=== PATIENT | female | born 1990 | race Hispanic/Latino ===

== ENCOUNTER 2018-05-15 18:14 | Emergency (ER) | payer OTHER, SELFPAY ==
[2018-05-15 22:06] LABS: Absolute Lymphocytes (CBC) 2.4 K/uL (0.7-4.9); Absolute Monocytes 0.6 K/uL (0.1-1.3); Absolute Neutrophil 3.9 K/uL (1.8-8.0); Basophils % 0.9 % (0-1.3); Eosinophils % 2.5 % (0-4.4); Hematocrit 41.9 % (36.0-45.0); Lymphocytes % 33.3 % (15.3-44.8); MPV 10.3 fL (7.6-11.3); Monocytes % 8.2 % (3.3-12.3); RBC Red Blood Cell Count 4.53 M/uL (3.86-4.86)
[2018-05-15 22:21] LABS: BUN Blood Urea Nitrogen 13 mg/dL (7-18); Bicarbonate 26 mmol/L (21-32); Glucose Level 102 mg/dL (74-106); Potassium 3.5 mmol/L (3.5-5.1); Sodium Level 142 mmol/L (136-145); Troponin (Emerg Dept Use Only) < 0.02 ng/mL (0.0-0.045)
[2018-05-15] MEDS ORDERED: ACETAMINOPHEN 500 MG TAB ONE (22:40)
--- NOTE | 2018-05-15 23:28 | EDPHYS ---
Physician Documentation [facility] Name: Marilyn Valenzuela Age: 28 yrs Sex: Female : 1990 Arrival Date: 05/15/2018 Time: 18:18 Bed 18 Private MD: ED Physician Marky Silva HPI: 05/15 22:13 This 28 yrs old Female presents to ER via Ambulatory with complaints of kb Shortness Of Breath. 22:13 The patient has shortness of breath at rest. Onset: The symptoms/episode began/occurred kb just prior to arrival. Duration: The symptoms are continuous. The patient's shortness of breath has no apparent modifying factors. Associated signs and symptoms: Pertinent positives: chest pain, Pertinent negatives: non-productive cough, productive cough, diaphoresis, dizziness, fever, hemoptysis, loss of consciousness, nausea, numbness in extremities, visual changes, vomiting. Severity of symptoms: At their worst the symptoms were moderate in the emergency department the symptoms have resolved. The patient has not experienced similar symptoms in the past. The patient has not recently seen a physician. Pt reports she was driving home from [place] and started having shortness of breath. Reports it felt like she was going to pass out. States she pulled over and "calmed down," then was able to drive again. Reports her chest felt tight . 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 - Social history:: Smoking status: Patient/guardian denies using tobacco. - Ebola Screening: : No symptoms or risks identified at this time. ROS: 22:13 Constitutional: Negative for fever, chills, and weight loss, Neck: Negative for injury, kb pain, and swelling, Abdomen/GI: Negative for abdominal pain, nausea, vomiting, diarrhea, and constipation, Back: Negative for injury and pain, : Negative for injury, bleeding, discharge, and swelling, MS/Extremity: Negative for injury and deformity, Skin: Negative for injury, rash, and discoloration, Neuro: Negative for headache, weakness, numbness, tingling, and seizure. 22:13 Cardiovascular: Positive for chest pain, Negative for edema, orthopnea, palpitations, paroxysmal nocturnal dyspnea. 22:13 Respiratory: Positive for shortness of breath, Negative for cough, dyspnea on exertion, hemoptysis, orthopnea, pleurisy, sputum production, wheezing. Exam: 22:13 Constitutional: This is a well developed, well nourished patient who is awake, alert, kb and in no acute distress. Head/Face: Normocephalic, atraumatic. ENT: Nares patent. No nasal discharge, no septal abnormalities noted. Tympanic membranes are normal and external auditory canals are clear. Oropharynx with no redness, swelling, or masses, exudates, or evidence of obstruction, uvula midline. Mucous membranes moist. Neck: Trachea midline, no thyromegaly or masses palpated, and no cervical lymphadenopathy. Supple, full range of motion without nuchal rigidity, or vertebral point tenderness. No Meningismus. Chest/axilla: Normal chest wall appearance and motion. Nontender with no deformity. No lesions are appreciated. Cardiovascular: Regular rate and rhythm with a normal S1 and S2. No gallops, murmurs, or rubs. Normal PMI, no JVD. No pulse deficits. Respiratory: Lungs have equal breath sounds bilaterally, clear to auscultation and percussion. No rales, rhonchi or wheezes noted. No increased work of breathing, no retractions or nasal flaring. Abdomen/GI: Soft, non-tender, with normal bowel sounds. No distension or tympany. No guarding or rebound. No evidence of tenderness throughout. Skin: Warm, dry with normal turgor. Normal color with no rashes, no lesions, and no evidence of cellulitis. MS/ Extremity: Pulses equal, no cyanosis. Neurovascular intact. Full, normal range of motion. Neuro: Awake and alert, GCS 15, oriented to person, place, time, and situation. Cranial nerves II-XII grossly intact. Motor strength 5/5 in all extremities. Sensory grossly intact. Cerebellar exam normal. Normal gait. Vital Signs: 18:46 BP 129 / 80; Pulse 75; Resp 18; Temp 97.9; Pulse Ox 100% on R/A; Weight 79.38 kg; ph Height 5 ft. 3 in. (160.02 cm); Pain 5/10; 21:15 BP 118 / 84; Pulse 78; Resp 16; Pulse Ox 99% on R/A; jb4 22:30 BP 123 / 68; Pulse 74; Resp 18; Pulse Ox 100% on R/A; jb4 23:15 BP 119 / 72; Pulse 69; Resp 18; Pulse Ox 100% on R/A; jb4 18:46 Body Mass Index 31.00 (79.38 kg, 160.02 cm) ph MDM: 21:16 Patient medically screened. kb 22:13 Data reviewed: vital signs, nurses notes. Data interpreted: Pulse oximetry: on room air kb is 100 %. Interpretation: normal. 23:26 Counseling: I had a detailed discussion with the patient and/or guardian regarding: the kb historical points, exam findings, and any diagnostic results supporting the discharge/admit diagnosis, lab results, radiology results, the need for outpatient follow up, a family practitioner, to return to the emergency department if symptoms worsen or persist or if there are any questions or concerns that arise at home. ED course: Pt reports she has had anxiety in the past and thinks that is what caused her symptoms. Reports increased stress lately and hasn't been able to sleep well for the past few nights. Was on anxiety medication in the past, but hasn't been on it for a few years. 05/15 21:19 Order name: CBC with Diff; Complete Time: 22:10 kb 05/15 21:19 Order name: D-Dimer; Complete Time: 22:10 kb 05/15 21:19 Order name: Basic Metabolic Panel; Complete Time: 22:28 kb 05/15 21:19 Order name: Chest Single View XRAY kb 05/15 21:19 Order name: Troponin (emerg Dept Use Only); Complete Time: 22:28 kb 05/15 21:19 Order name: IV Start; Complete Time: 21:43 kb 05/15 21:19 Order name: EKG; Complete Time: 21:19 kb 05/15 21:19 Order name: EKG - Nurse/Tech; Complete Time: 21:29 kb Administered Medications: 22:10 Drug: Tylenol 1000 mg Route: PO; jb4 23:38 Follow up: Response: No adverse reaction; Pain is decreased jb4 Disposition: 05/15/18 23:27 Discharged to Home. Impression: Dyspnea - resolved. - Condition is Stable. - Discharge Instructions: Shortness of Breath, [id number], Panic Attacks, [id number]. - Prescriptions for Hydroxyzine HCl 25 mg Oral Tablet - take 1 tablet by ORAL route At bedtime As needed; 12 tablet. - Medication Reconciliation Form, Thank You Letter, Antibiotic Education, Prescription Opioid Use form. - Follow up: Emergency Department; When: As needed; Reason: Worsening of condition. Follow up: Private Physician; When: 2 - 3 days; Reason: Recheck today's complaints, Continuance of care, Re-evaluation by your physician. Addendum: 05/18/2018 19:35 Co-signature as Attending Physician, Marky Silva MD. g s Signatures: Dispatcher [employer] EDMS Lesley Gallegos, KEY-C CARRIER WASHER-Elissa Hodge, RN RN Marlo Wyamn RN RN jb4 Marky Silva MD MD Corrections: (The following items were deleted from the chart) 05/15 23:40 23:27 05/15/2018 23:27 Discharged to Home. Impression: Dyspnea - resolved. Condition is jb4 Stable. Forms are Medication Reconciliation Form, Thank You Letter, Antibiotic Education, Prescription Opioid Use. Follow up: Emergency Department; When: As needed; Reason: Worsening of condition. Follow up: Private Physician; When: 2 - 3 days; Reason: Recheck today's complaints, Continuance of care, Re-evaluation by your physician. kb
--- NOTE | 2018-05-15 23:28 | ER ---
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 18:48 Transition of care: patient was not received from another setting of care. Onset of ph symptoms was May 15, 2018. Risk Assessment: Do you want to hurt yourself or someone else? Patient reports no desire to harm self or others. Initial Sepsis Screen: Does the patient meet any 2 criteria? No. Patient's initial sepsis screen is negative. Does the patient have a suspected source of infection? No. Patient's initial sepsis screen is negative. 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 - Social history:: Smoking status: Patient/guardian denies using tobacco. - Ebola Screening: : No symptoms or risks identified at this time. Screenin:49 Abuse screen: Denies threats or abuse. Denies injuries from another. Nutritional ph screening: No deficits noted. Tuberculosis screening: No symptoms or risk factors identified. Fall Risk None identified. Assessment: 21:00 General: Appears in no apparent distress. comfortable, Behavior is calm, cooperative, jb4 appropriate for age. Pain: Complains of pain in chest Pain does not radiate. Pain currently is 2 out of 10 on a pain scale. Quality of pain is described as pressure. Neuro: Level of Consciousness is awake, alert, obeys commands, Oriented to person, place, time, situation. Cardiovascular: Heart tones S1 S2 present Patient's skin is warm and dry. Rhythm is sinus rhythm. Respiratory: Airway is patent Respiratory effort is even, unlabored, Breath sounds are clear bilaterally. GI: No signs and/or symptoms were reported involving the gastrointestinal system. : No signs and/or symptoms were reported regarding the genitourinary system. EENT: No signs and/or symptoms were reported regarding the EENT system. Derm: Skin is intact, Skin is pink, warm \\T\\ dry. Musculoskeletal: Circulation, motion, and sensation intact. 22:00 Reassessment: Patient appears in no apparent distress at this time. Patient and/or jb4 family updated on plan of care and expected duration. Pain level reassessed. Patient is alert, oriented x 3, equal unlabored respirations, skin warm/dry/pink. 23:36 Reassessment: Patient appears in no apparent distress at this time. Patient and/or jb4 family updated on plan of care and expected duration. Pain level reassessed. Patient is alert, oriented x 3, equal unlabored respirations, skin warm/dry/pink. Vital Signs: 18:46 BP 129 / 80; Pulse 75; Resp 18; Temp 97.9; Pulse Ox 100% on R/A; Weight 79.38 kg; ph Height 5 ft. 3 in. (160.02 cm); Pain 5/10; 21:15 BP 118 / 84; Pulse 78; Resp 16; Pulse Ox 99% on R/A; jb4 22:30 BP 123 / 68; Pulse 74; Resp 18; Pulse Ox 100% on R/A; jb4 23:15 BP 119 / 72; Pulse 69; Resp 18; Pulse Ox 100% on R/A; jb4 18:46 Body Mass Index 31.00 (79.38 kg, 160.02 cm) ph ED Course: 18:18 Patient arrived in ED. tw3 18:47 Arm band placed on. ph 18:48 Triage completed. ph 18:54 EKG completed in triage. Results shown to . ph 20:50 Marlo Wyamn, RN is Primary Nurse. jb4 21:00 Patient has correct armband on for positive identification. Placed in gown. Bed in low jb4 position. Call light in reach. Side rails up X 1. Pulse ox on. NIBP on. 21:05 Initial lab(s) drawn, by me, sent to lab. Inserted saline lock: 20 gauge in left jb4 antecubital area, using aseptic technique. Blood collected. 21:07 Lesley Gallegos [facility]C [facility] kb 21:07 Marky Silva MD is Attending Physician. kb 22:10 X-ray completed. Portable x-ray completed in exam room. Patient tolerated procedure ml well. 22:11 Chest Single View XRAY In Process Unspecified. EDMS 23:37 No provider procedures requiring assistance completed. IV discontinued, intact, jb4 bleeding controlled, No redness/swelling at site. Administered Medications: 22:10 Drug: Tylenol 1000 mg Route: PO; jb4 23:38 Follow up: Response: No adverse reaction; Pain is decreased jb4 Outcome: 23:27 Discharge ordered by . kb 23:37 Discharged to home ambulatory. jb4 23:37 Condition: stable 23:37 Discharge instructions given to patient, Instructed on discharge instructions, follow up and referral plans. medication usage, Demonstrated understanding of instructions, follow-up care, medications, Prescriptions given X 1. 23:40 Patient left the ED. jb4 Signatures: Dispatcher [employer] EDNH Lesley Gallegos FNP-C FNP-Zhane Snyder Patricia, RN RN Marlo Mota, RN RN jb4 Susi Srinivasan tw3 Corrections: (The following items were deleted from the chart) 23:36 21:00 Cardiovascular: Heart tones S1 S2 present Patient's skin is warm and dry. jb4 jb4 23:37 23:15 No provider procedures requiring assistance completed. jb4 jb4 23:37 23:15 Patient did not have IV access during this emergency room visit. jb4 jb4
--- NOTE | 2018-05-16 05:30 | EKG ---
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
--- NOTE | 2018-05-16 07:20 | RAD REPORT ---
EXAM DESCRIPTION: RAD - Chest Single View - 05/15/2018 10:10 pm CLINICAL HISTORY: Chest pain, dyspnea COMPARISON: None. TECHNIQUE: AP portable chest image was obtained 2150 hours . FINDINGS: Lungs are clear. Heart and vasculature are normal. No measurable pleural effusion and no p neumothorax. No acute bony abnormality seen. No acute aortic findings suspected. IMPRESSION: No acute cardiopulmonary process.
== END 2018-05-15 23:40 | disposition home or self-care (01) ==
LOC: ER 18:14
DX: R06.02 Shortness of breath (principal)
CPT/HCPCS: 36415; 71045; 80048; 84484; 85025; 85379; 93005; 99284

== ENCOUNTER 2021-12-19 17:41 | Emergency (ER) | payer BC ==
--- OUTSIDE RECORDS SUMMARY | 2021-12-19 17:46 | XMS REPORT | Continuity of Care Document ---
:1990 Author Organization [facility] t Address [address] [place] [address] Care Team Providers Name Role Phone Ailin Ramirez Primary Care Physician [phone] Quinn Quintero Attending Clinician Unavailable MIKE BLOCK Attending Clinician Unavailable MIKE BLOCK Attending Clinician Unavailable ANNA CALZADA Attending Clinician Unavailable YVONNE Attending Clinician Unavailable Anna Calzada MD Attending Clinician Doctor Unassigned, [place] Attending Clinician Unavailable Lab, Ang - Db Attending Clinician Unavailable LUCIA DO Attending Clinician Unavailable SCHAUBROECK_L Attending Clinician Unavailable Colten Escobar DO Attending Clinician Kimber Powell Attending Clinician [phone] Lab, Adc Fam Pob I Attending Clinician Unavailable Jannet Brownlee Attending Clinician JANNET LANDRUM Attending Clinician Unavailable Aria Nava Attending Clinician ARIA FLETCHER Attending Clinician Unavailable AILIN THURSTON Attending Clinician Unavailable Ailin Ramirez Attending Clinician [phone] YVONNE Admitting Clinician Unavailable CAROLINE Admitting Clinician Unavailable Payers Payer Name Policy Type Policy Number Effective Date Expiration Date S jo ann [employer] [place] [id number] 2020 00:00:00 [facility] [id number] 2018 HEALTHCARE (PPO) 00:00:00 [employer] Blue 6 [id number] 2020 Common [facility] [place] 00:00:00 [facility] Problems Condition Condition Condition Status Onset Resolution Last Treating Co mments Source Name Details Category Date Date Treatment Clinician Date Chronic Chronic Disease Active 2021-03 Univers fatigue fatigue 0-14 ity of 00:00: [place] [facility] Myalgia, Myalgia, Disease Active 2021-03 Unive rs multiple multiple 0-14 ity of sites sites 00:00: [place] [facility] Hearing Hearing Disease Active Univers loss loss 4-18 ity of 00:00: [place] [facility] Anxiety Anxiety Problem Active [facility] 2-22 Communi 00:00: [place] 00 [facility] IUD IUD Disease Active 2016-03 Univers strings strings 0-20 ity of lost lost 00:00: [place] 00 [facility] Presence Presence Disease Active 2015-03 Unive rs of of 2-16 [place]y of intra[place] 00 Medical contracept contracept Br anch bboy device boby device Dysmenorrh Dysmenorrh Disease Active U nivers ea ea 5-11 ity of 00:00: [place] 00 [facility] BV BV Disease Active Univers (bacterial (bacterial 5-11 it y of vaginosis) vaginosis[place] [facility] Vaginal Vaginal Disease Active Univers yeast yeast 5-11 ity of infection [place] [facility] Oral Oral Disease Active Univers contracept contracept 5-11 it y of ion ion 00:00: [place] initiation initiation 00 Vt dical Branch [id number] Anxiety Problem Active [facility] [id number] Tinnitus, Problem Active Co mmon 106 left ear [facility] [id number] Chronic Problem Active [facility] Idiopathic [facility] Constipati - [facility] on [facility] Adult Adult Problem Active Common attention attention 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 [facility] Insomnia Insomnia Problem Active Commo n [facility] [id number] Adult BMI Problem Active Com mon 30.0-30.9 Spirit kg/sq [facility] [id number] Decreased Problem Active Com mon hearing of Spirit left ear [facility] [id number] FRANK Problem Active Common (generaliz Spirit ed anxiety - [facility] disorder) [facility] Allergies, Adverse Reactions, Alerts Allergy Allergy Status Severity Reaction(s) Onset Inactive Treating Comm ents Source Name Type Date Date Clinician NO KNOWN Drug Active Univers ALLERGIE Class ity of S [facility] [place] Social History Social Habit Start Date Stop Date Quantity Comments Source History SDOH University o f Alcohol Frequency [place] [facility] History SDOH University o f Alcohol Std [place] [facility] History SDAK University o f Alcohol Binge [place] [facility] [place] History of [facility] - [facility] Use [facility] Sex Assigned At [facility] Alcohol intake 2021-12-15 2021-12-15 0 /d University of 00:00:00 00:00:00 [facility] [place] Exposure to 2021-12-04 2021-12-14 Not sure [facility] SARS-CoV-2 00:00:00 16:19:00 [facility] (event) [place] Tobacco use and 2021-12-14 2021-12-14 Smokeless tobacco Un iversity of exposure 00:00:00 00:00:00 non-user [facility] [place] Alcohol Comment 2012-06-27 2012-06-27 socially Universit y of 00:00:00 00:00:00 [facility] [place] Smoking Status Start Date Stop Date Source Never Smoker [facility] Medications Ordered Filled Start Stop Current Ordering Indication Dosage Frequency Signature Comments Components Source Medication Medication Date Date Medication? Clinician (SIG) Name Name TRAZODONE 2021-03 Yes Take by Unive rs HCL 0-13 mouth. ity of (TRAZODONE 16:38: [place] ORAL) [address] [place] [address] TRAZODONE 2021-03 Yes Take by Unive rs HCL 0-13 mouth. ity of (TRAZODONE 16:38: [place] ORAL) [address] [place] [address] norgestimat 2021-03 Yes [id number] 1{tbl} Take 1 Univers e-ethinyl 0-13 tablet by ity o f estradioL [place] 00 the Medical 0.25 mg-25 morning. Branc h mcg tablet norgestimat 2021-03 Yes [id number] 1{tbl} Take 1 Univers e-ethinyl 0-13 tablet by ity o f estradioL [place] 00 the Medical 0.25 mg-25 morning. Branc h mcg tablet Amphetamine Amphetamine No 1{table BID Amphetamin -Dextroamph -Dextroamph 8-06 t} e-Dextroam etamine 30 etamine 30 00:00: phetamine MG MG 00 30 MG Sertraline Sertraline 0 No 1{table QD Sertraline HCl 100 MG HCl 100 MG 7-07 t} HCl 100 MG 00:00: 00 Amphetamine Amphetamine No 1{table BID Amphetamin -Dextroamph -Dextroamph 7-07 t} e-Dextroam etamine 30 etamine 30 00:00: phetamine MG MG 00 30 MG dextroamphe 2021- No 1 tablet U nivers tamine-amph 7-07 10-13 ity of etamine 30 00:00: 00:00 [place] mg tablet 00 :00 Medical Branch dextroamphe 2021-0 2021- No 1 tablet U nivers tamine-amph 7-07 10-13 ity of etamine 30 00:00: 00:00 [place] mg tablet 00 :00 Medical Branch Amphetamine Amphetamine 0 No 1{table BID Amphetamin -Dextroamph -Dextroamph 6-11 t} e-Dextroam etamine 30 etamine 30 00:00: phetamine MG MG 00 30 MG levonorgest 2021- No [id number] 1{devic Univers reL 07-25- e} ity of (KYLEENA) 20:45: 19:44 [place] IUD 1 00 :00 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 Branch levonorgest 2021- No [id number] 1{devic 1 Device, Univers reL 07-25-24 e} Intrauteri ity of (KYLEENA) 20:45: 19:44 [place] I[place] 1 00 :00 1 dose, On 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 Manager Tue Branch 07/25/21 at 1545, Routine levonorgest 2021- No [id number] 1{devi Univers reL 07-25 05 e} ity of (RUBENS) 20:45: 19:44 [place] IUD 1 00 :00 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 Manager Branch levonorgest 2021- No [id number] 1{devi 1 Device, Univers reL 07-25 e} Intrauteri ity of (MIGUELITOLEENA) 20:45: 19:44 [place] I[place] 1 00 :00 1 dose, On 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 Manager e Branch 07/25/21 at 1545, Routine TRINTELLIX Yes Univers 10 mg Tab 5-12 ity of 00:00: 00 Medical Branch TRINTELLIX 0 Yes Univers 10 mg Tab 5-12 ity of 00:00: Medical Branch TRINTELLIX Yes Univers 10 mg Tab 5-12 ity of 00:00: Medical Branch TRINTELLIX 0 Yes Univers 10 mg Tab 5-12 ity of 00:00: Medical Branch TRINTELLIX 0 Yes Univers 10 mg Tab 5-12 ity of 00:00: Medical Branch Trintellix Trintellix 0 No 1{table QD Trintellix 10 MG 10 MG 5-12 t} 10 MG 00:00: 00 Amphetamine Amphetamine No 1{table BID Amphetamin -Dextroamph -Dextroamph 5-12 t} e-Dextroam etamine 30 etamine 30 00:00: phetamine MG MG 00 30 MG TRAZODONE Yes Take by Unive rs HCL 4-22 mouth. ity of (TRAZODONE 13:18: [place] ORAL) Medical Branch TRAZODONE Yes Take by Unive rs HCL 4-22 mouth. ity of (TRAZODONE 13:18: [place] ORAL) Medical Branch TRAZODONE Yes Take by Unive rs HCL 4-22 mouth. ity of (TRAZODONE 13:18: [place] ORAL) 26 Medical Branch Amphetamine Amphetamine 2021-0 No 1{table BID Amphetamin -Dextroamph -Dextroamph 4-22 t} e-Dextroam etamine 30 etamine 30 00:00: phetamine MG MG 00 30 MG Adderall 30 Adderall 30 2021-0 No 1{table BID Adderall MG MG 4-22 t} 30 MG 00:00: 00 Adderall 30 Adderall 30 2021-0 No 1{table BID Adderall MG MG 4-22 t} 30 MG 00:00: 00 Adderall 30 Adderall 30 2021-0 No 1{table BID Adderall MG MG 4-22 t} 30 MG 00:00: 00 Adderall 30 Adderall 30 2021-0 No 1{table BID Adderall MG MG 4-22 t} 30 MG 00:00: 00 levonorgest 2021-0 2021- No [id number] 1{tbl} Take 1 Univers rel-ethinyl 4-22 05-24 tablet by it y of estradiol 00:00: 00:00 mouth [place] 0.1-20 00 :00 daily. Medical mg-mcg per Branch tablet levonorgest 0 2021- No [id number] 1{tbl} Take 1 Univers rel-ethinyl 4-22 05-24 tablet by it y of estradiol 00:00: 00:00 mouth [place] 0.1-20 00 :00 daily. Medical mg-mcg per Branch tablet Adderall 30 Adderall 30 2021-0 No 1{table BID Adderall MG MG 3-23 t} 30 MG 00:00: 00 Amphetamine Amphetamine 2021-0 No 1{table BID Amphetamin -Dextroamph -Dextroamph 3-23 t} e-Dextroam etamine 30 etamine 30 00:00: phetamine MG MG 00 30 MG Adderall 30 Adderall 30 2021-0 No 1{table BID Adderall MG MG 3-23 t} 30 MG 00:00: 00 Adderall 30 Adderall 30 2021-0 No 1{table BID Adderall MG MG 3-23 t} 30 MG 00:00: 00 Adderall 30 Adderall 30 2021-0 No 1{table BID Adderall MG MG 3-23 t} 30 MG 00:00: 00 MYDAYIS 25 2021- No 1{capsu Take 1 U nivers mg CT24 3- 05-24 le} capsule by ity o f 00:00: 00:00 mouth [place] 00 :00 every Medical morning. Branch MYDAYIS 25 2021- No 1{capsu Take 1 U nivers mg CT24 3-10 05-24 le} capsule by ity o f 00:00: 00:00 mouth [place] 00 :00 every Medical morning. Branch dextroamphe 2021-0 Yes 30mg Take 30 mg Univers tamine-amph 1-25 by mouth 2 it y of etamine 30 00:00: (two) [place] mg tablet 00 times Medical daily. Branch dextroamphe 2021-0 Yes 30mg Take 30 mg Univers tamine-amph 1-25 by mouth 2 it y of etamine 30 00:00: (two) [place] mg tablet 00 times Medical daily. Branch dextroamphe 2021-0 Yes 30mg Take 30 mg Univers tamine-amph 1-25 by mouth 2 it y of etamine 30 00:00: (two) [place] mg tablet 00 times Medical daily. Branch dextroamphe 2021-0 Yes 30mg Take 30 mg Univers tamine-amph 1-25 by mouth 2 it y of etamine 30 00:00: (two) [place] mg tablet 00 times Medical daily. Branch dextroamphe 2021-0 Yes 30mg Take 30 mg Univers tamine-amph 1-25 by mouth 2 it y of etamine 30 00:00: (two) [place] mg tablet 00 times Medical daily. Branch Amphetamine Amphetamine No 1{table BID -Dextroamph -Dextroamph 1-25 t} etamine 30 etamine 30 00:00: MG MG 00 Vyvanse 50 Vyvanse 50 2020-03 No 1{capsu QD Vyvanse 50 MG MG 1-02 le_in_t MG 00:00: he_morn 00 ing} Moxifloxaci Moxifloxaci 2020-03- No 1{drop_ TID Moxifloxac n HCl 0.5 % n HCl 0.5 % 0-18 10-25 into_af in HCl 0.5 00:00: 00:00 fected_ % 00 :00 eye} Moxifloxaci Moxifloxaci 2020-03 202- No 1{drop_ TID Moxifloxac n HCl 0.5 % n HCl 0.5 % 0-18 10-25 into_af in HCl 0.5 00:00: 00:00 fected_ % 00 :00 eye} Vyvanse 40 Vyvanse 40 2020-03 No 1{capsu QD Vyvanse 40 MG MG 0-04 le_in_t MG 00:00: he_morn 00 ing} Vyvanse 40 Vyvanse 40 2020-03 No 1{capsu QD Vyvanse 40 MG MG 0-04 le_in_t MG 00:00: he_morn 00 ing} Vyvanse 40 Vyvanse 40 2020-03 No 1{capsu QD Vyvanse 40 MG MG 0-04 le_in_t MG 00:00: he_morn 00 ing} Venlafaxine Venlafaxine 0 No 1{capsu QD Venlafaxin HCl ER 75 HCl ER 75 9-01 le_with e HCl ER MG MG 00:00: _food} 75 MG 00 Adderall 30 Adderall 30 2020-0 No 1{table BID Adderall MG MG 9-01 t} 30 MG 00:00: 00 Adderall 20 Adderall 20 2020-0 No 1{table BID Adderall MG MG 6-14 t} 20 MG 00:00: 00 Lactulose Lactulose 2020-0 No BID Lactulose 10 GM/15ML 10 GM/15ML 1-08 10 GM/15ML 00:00: 00 Lactulose Lactulose 2020-0 No BID Lactulose 10 GM/15ML 10 GM/15ML 1-08 10 GM/15ML 00:00: 00 Lactulose Lactulose 2020-0 No BID Lactulose 10 GM/15ML 10 GM/15ML 1-08 10 GM/15ML 00:00: 00 Lactulose Lactulose 2020-0 No BID Lactulose 10 GM/15ML 10 GM/15ML 1-08 10 GM/15ML 00:00: 00 Lactulose Lactulose 2020-0 No BID Lactulose 10 GM/15ML 10 GM/15ML 1-08 10 GM/15ML 00:00: 00 Lactulose Lactulose 2021-0 No BID 10 GM/15ML 10 GM/15ML 1-08 00:00: 00 Lactulose Lactulose 2021-0 No BID Lactulose 10 GM/15ML 10 GM/15ML 1-08 10 GM/15ML 00:00: 00 Lactulose Lactulose 2021-0 No BID Lactulose 10 GM/15ML 10 GM/15ML 1-08 10 GM/15ML 00:00: 00 Lactulose Lactulose 2021-0 No BID Lactulose 10 GM/15ML 10 GM/15ML 1-08 10 GM/15ML 00:00: 00 Lactulose Lactulose 2021-0 No BID Lactulose 10 GM/15ML 10 GM/15ML 1-08 10 GM/15ML 00:00: 00 Lactulose Lactulose 2021-0 No BID Lactulose 10 GM/15ML 10 GM/15ML 1-08 10 GM/15ML 00:00: 00 Lactulose Lactulose 2021-0 No BID Lactulose 10 GM/15ML 10 GM/15ML 1-08 10 GM/15ML 00:00: 00 Lactulose Lactulose 2021-0 No BID Lactulose 10 GM/15ML 10 GM/15ML 1-08 10 GM/15ML 00:00: 00 Adderall Adderall 2019-0 Yes Quinn 1 tablet Common 7-12 [facility] 00:00: - [facility] 00 [facility] Vitamin B12 Vitamin B12 2019-0 No 1000ug Common (Cyanocobal (Cyanocobal 7-12 S pirit hernandez) hernandez) 00:00: - [facility] 00 [facility] Vitamin B12 Vitamin B12 2019-0 No 1000ug Common (Cyanocobal (Cyanocobal 7-12 S pirit hernandez) hernandez) 00:00: - [facility] 00 [facility] Vitamin B12 Vitamin B12 2019-0 No 1000ug Common (Cyanocobal (Cyanocobal 7-12 S pirit hernandez) hernandez) 00:00: - [facility] 00 [facility] Vitamin B12 Vitamin B12 2019-0 No 1000ug Common (Cyanocobal (Cyanocobal 7-12 S pirit hernandez) hernandez) 00:00: - [facility] 00 [facility] Vitamin B12 Vitamin B12 2019-0 No 1000ug Common (Cyanocobal (Cyanocobal 7-12 S pirit hernandez) hernandez) 00:00: - [facility] 00 [facility] Zolpidem Zolpidem 2019-0 Yes Quinn 1 tablet Common Tartrate Tartrate 6-13 Quintero at bedtime Spirit 00:00: - [facility] 00 [facility] albuterol albuterol No 2puff(s Q5H albuterol [facility] sulfate HFA sulfate HFA ) sulfate Communi 90 90 HFA 90 ty mcg/actuati mcg/actuati mcg/actuat Hospita on aerosol on aerosol ion l inhaler inhaler aerosol Clinic s Inhale 2 Inhale 2 inhaler puffs every puffs every Inhale 2 4-6 hours 4-6 hours puffs by by every 4-6 inhalation inhalation hours by route as route as inhalation needed for needed for route as 30 days. 30 days. needed for 30 days. alprazolam alprazolam No alprazolam [facility] 1 mg tablet 1 mg tablet 1 mg C ommuni TAKE 1 TAKE 1 tablet ty TABLET BY TABLET BY TAKE 1 [facility] [place] MOUTH EVERY MOUTH EVERY TABLET BY l DAY. DAY. MOUTH Clinics EVERY DAY. etonogestre etonogestre No etonogestr [facility] l 0.12 l 0.12 el 0.12 Communi mg-ethinyl mg-ethinyl mg-ethinyl ty estradiol estradiol estradiol Hospita 0.015 mg/24 0.015 mg/24 0.015 l hr vaginal hr vaginal mg/24 hr Clinics ring INSERT ring INSERT vaginal 1 RING 1 RING ring VAGINALLY VAGINALLY INSERT 1 FOR 3 WEEKS FOR 3 WEEKS RING THEN REMOVE THEN REMOVE VAGINALLY FOR 1 WEEK FOR 1 WEEK FOR 3 WEEKS THEN REMOVE FOR 1 WEEK prednisone prednisone No 1dose prednisone [facility] 5 mg 5 mg pk(s) 5 mg Communi tablets in tablets in tablets in ty a dose pack a dose pack a dose Hospita Take 1 dose Take 1 dose pack Take l pk by oral pk by oral 1 dose pk Clinics route as route as by oral directed directed route as for 6 days. for 6 days. directed for 6 days. trazodone trazodone No trazodone [facility] 150 mg 150 mg 150 mg Communi tablet TAKE tablet TAKE tablet ty 1 TABLET BY 1 TABLET BY TAKE 1 Hospita MOUTH EVERY MOUTH EVERY TABLET BY l DAY AT DAY AT MOUTH Clinics BEDTIME BEDTIME EVERY DAY AT BEDTIME Zithromax Zithromax No Zithromax [facility] Z-Oj 250 Z-Oj 250 Z-Oj 250 Communi mg tablet mg tablet mg tablet ty TAKE 2 TAKE 2 TAKE 2 Hospita TABLETS TABLETS TABLETS l (500 MG) BY (500 MG) BY (500 MG) Clinics ORAL ROUTE ORAL ROUTE BY ORAL ONCE DAILY ONCE DAILY ROUTE ONCE FOR 1 DAY FOR 1 DAY DAILY FOR THEN 1 THEN 1 1 DAY THEN TABLET (250 TABLET (250 1 TABLET MG) BY ORAL MG) BY ORAL (250 MG) ROUTE ONCE ROUTE ONCE BY ORAL DAILY FOR 4 DAILY FOR 4 ROUTE ONCE DAYS DAYS DAILY FOR 4 DAYS traZODone traZODone No traZODone HCl 150 MG HCl 150 MG HCl 150 MG Xulane Xulane No Xulane 150-35 150-35 150-35 MCG/24HR MCG/24HR MCG/24HR Adderall 15 Adderall 15 No 1{table BID Adderall MG MG t} 15 MG Xulane Xulane No Xulane 150-35 150-35 150-35 MCG/24HR MCG/24HR MCG/24HR traZODone traZODone No 1{table QD traZODone HCl 150 MG HCl 150 MG t_at_be HCl 150 MG dtime} Adderall 15 Adderall 15 No 1{table BID Adderall MG MG t} 15 MG Venlafaxine Venlafaxine No 1{capsu QD Venlafaxin HCl ER 75 HCl ER 75 le_with e HCl ER MG MG _food} 75 MG traZODone traZODone No traZODone HCl 150 MG HCl 150 MG HCl 150 MG Venlafaxine Venlafaxine No 1{capsu QD Venlafaxin HCl ER 75 HCl ER 75 le_with e HCl ER MG MG _food} 75 MG Venlafaxine Venlafaxine No 1{capsu QD Venlafaxin HCl ER 75 HCl ER 75 le_with e HCl ER MG MG _food} 75 MG Xulane Xulane No Xulane 150-35 150-35 150-35 MCG/24HR MCG/24HR MCG/24HR Adderall 15 Adderall 15 No 1{table BID Adderall MG MG t} 15 MG traZODone traZODone No 1{table QD traZODone HCl 150 MG HCl 150 MG t_at_be HCl 150 MG dtime} Venlafaxine Venlafaxine No 1{capsu QD Venlafaxin HCl ER 75 HCl ER 75 le_with e HCl ER MG MG _food} 75 MG traZODone traZODone No traZODone HCl 150 MG HCl 150 MG HCl 150 MG Venlafaxine Venlafaxine No 1{capsu QD Venlafaxin HCl ER 75 HCl ER 75 le_with e HCl ER MG MG _food} 75 MG Xulane Xulane No Xulane 150-35 150-35 150-35 MCG/24HR MCG/24HR MCG/24HR Adderall 15 Adderall 15 No 1{table BID Adderall MG MG t} 15 MG traZODone traZODone No 1{table QD traZODone HCl 150 MG HCl 150 MG t_at_be HCl 150 MG dtime} Venlafaxine Venlafaxine No 1{capsu QD Venlafaxin HCl ER 75 HCl ER 75 le_with e HCl ER MG MG _food} 75 MG traZODone traZODone No traZODone HCl 150 MG HCl 150 MG HCl 150 MG Adderall 15 Adderall 15 No 1{table BID Adderall MG MG t} 15 MG Venlafaxine Venlafaxine No 1{capsu QD Venlafaxin HCl ER 75 HCl ER 75 le_with e HCl ER MG MG _food} 75 MG traZODone traZODone No 1{table QD traZODone HCl 150 MG HCl 150 MG t_at_be HCl 150 MG dtime} traZODone traZODone No traZODone HCl 150 MG HCl 150 MG HCl 150 MG Xulane Xulane No Xulane 150-35 150-35 150-35 MCG/24HR MCG/24HR MCG/24HR Venlafaxine Venlafaxine No 1{capsu QD Venlafaxin HCl ER 75 HCl ER 75 le_with e HCl ER MG MG _food} 75 MG traZODone traZODone No HCl 150 MG HCl 150 MG Venlafaxine Venlafaxine No 1{capsu QD HCl ER 75 HCl ER 75 le_with MG MG _food} Xulane Xulane No 150-35 150-35 MCG/24HR MCG/24HR Venlafaxine Venlafaxine No 1{capsu QD HCl ER 75 HCl ER 75 le_with MG MG _food} traZODone traZODone No 1{table QD HCl 150 MG HCl 150 MG t_at_be dtime} Adderall 15 Adderall 15 No 1{table BID MG MG t} Amphetamine Amphetamine No 1{table BID Amphetamin -Dextroamph -Dextroamph t} e-Dextroam etamine 30 etamine 30 phetamine MG MG 30 MG traZODone traZODone No 1{table QD traZODone HCl 150 MG HCl 150 MG t_at_be HCl 150 MG dtime} Venlafaxine Venlafaxine No 1{capsu QD Venlafaxin HCl ER 75 HCl ER 75 le_with e HCl ER MG MG _food} 75 MG Venlafaxine Venlafaxine No 1{capsu QD Venlafaxin HCl ER 75 HCl ER 75 le_with e HCl ER MG MG _food} 75 MG Adderall 15 Adderall 15 No 1{table BID Adderall MG MG t} 15 MG traZODone traZODone No 1{table QD traZODone HCl 150 MG HCl 150 MG t_at_be HCl 150 MG dtime} Venlafaxine Venlafaxine No 1{capsu QD Venlafaxin HCl ER 75 HCl ER 75 le_with e HCl ER MG MG _food} 75 MG Xulane Xulane No Xulane 150-35 150-35 150-35 MCG/24HR MCG/24HR MCG/24HR traZODone traZODone No traZODone HCl 150 MG HCl 150 MG HCl 150 MG Xulane Xulane No Xulane 150-35 150-35 150-35 MCG/24HR MCG/24HR MCG/24HR Adderall 15 Adderall 15 No 1{table BID Adderall MG MG t} 15 MG traZODone traZODone No 1{table QD traZODone HCl 150 MG HCl 150 MG t_at_be HCl 150 MG dtime} traZODone traZODone No traZODone HCl 150 MG HCl 150 MG HCl 150 MG Venlafaxine Venlafaxine No 1{capsu QD Venlafaxin HCl ER 75 HCl ER 75 le_with e HCl ER MG MG _food} 75 MG Amphetamine Amphetamine No 1{table BID Amphetamin -Dextroamph -Dextroamph t} e-Dextroam etamine 30 etamine 30 phetamine MG MG 30 MG Amphetamine Amphetamine No 1{table BID Amphetamin -Dextroamph -Dextroamph t} e-Dextroam etamine 30 etamine 30 phetamine MG MG 30 MG Trintellix Trintellix No 1{table QD [facility]ellix 10 MG 10 MG t} 10 MG traZODone traZODone No 1{table QD traZODone HCl 150 MG HCl 150 MG t_at_be HCl 150 MG dtime} Venlafaxine Venlafaxine No 1{capsu QD Venlafaxin HCl ER 75 HCl ER 75 le_with e HCl ER MG MG _food} 75 MG Xulane Xulane No Xulane 150-35 150-35 150-35 MCG/24HR MCG/24HR MCG/24HR traZODone traZODone No traZODone HCl 150 MG HCl 150 MG HCl 150 MG Adderall 15 Adderall 15 No 1{table BID Adderall MG MG t} 15 MG Xulane Xulane No Xulane 150-35 150-35 150-35 MCG/24HR MCG/24HR MCG/24HR traZODone traZODone No traZODone HCl 150 MG HCl 150 MG HCl 150 MG traZODone traZODone No 1{table QD traZODone HCl 150 MG HCl 150 MG t_at_be HCl 150 MG dtime} Adderall 15 Adderall 15 No 1{table BID Adderall MG MG t} 15 MG Venlafaxine Venlafaxine No 1{capsu QD Venlafaxin HCl ER 75 HCl ER 75 le_with e HCl ER MG MG _food} 75 MG Adderall 15 Adderall 15 No 1{table BID Adderall MG MG t} 15 MG Amitriptyli Amitriptyli No 1{table QD Amitriptyl ne HCl 50 ne HCl 50 t_at_be ine HCl 50 MG MG dtime} MG Adderall 20 Adderall 20 No 1{table BID Adderall MG MG t} 20 MG Adderall 15 Adderall 15 No 1{table BID Adderall MG MG t} 15 MG Amitriptyli Amitriptyli No 1{table QD Amitriptyl ne HCl 50 ne HCl 50 t_at_be ine HCl 50 MG MG dtime} MG Adderall 20 Adderall 20 No 1{table BID Adderall MG MG t} 20 MG Adderall 15 Adderall 15 No 1{table BID Adderall MG MG t} 15 MG Amitriptyli Amitriptyli No 1{table QD Amitriptyl ne HCl 50 ne HCl 50 t_at_be ine HCl 50 MG MG dtime} MG Immunizations Ordered Filled Immunization Date Status Comments [facility] e Immunization Name Name Influenza Virus 2021-04-04 Completed Universit y of Vaccine 00:00:00 [facility] [place] Influenza Virus 2021-04-04 Completed Universit y of Vaccine 00:00:00 [facility] [place] Influenza Virus 2021-04-04 Completed Universit y of Vaccine 00:00:00 [facility] [place] Influenza Virus 2021-04-04 Completed Universit y of Vaccine 00:00:00 [facility] [place] Influenza Virus 2021-04-04 Completed Universit y of Vaccine 00:00:00 [facility] [place] Afluria single dose Afluria single dose 2020-02-16 [facility]pleted [facility] 15:38:00 [facility] Afluria single dose Afluria single dose 2020-02-16 Completed [facility] - 15:38:00 [facility] Afluria single dose Afluria single dose 2020-02-16 Completed [facility] - 15:38:00 [facility] Afluria single dose Afluria single dose 2020-02-16 Completed [facility] - 15:38:00 [facility] Afluria single dose Afluria single dose 2020-02-16 Completed [facility] - 15:38:00 [facility] Afluria single dose Afluria single dose 2020-02-16 Completed [facility] - 15:38:00 [facility] Afluria single dose Afluria single dose 2020-02-16 Completed [facility] - 15:38:00 [facility] Afluria single dose Afluria single dose 2020-02-16 Completed [facility] - 15:38:00 [facility] Afluria single dose Afluria single dose 2020-02-16 Completed [facility] - 15:38:00 [facility] Afluria single dose Afluria single dose 2020-02-16 Completed [facility] - 15:38:00 [facility] Afluria single dose Afluria single dose 2020-02-16 Completed [facility] - 15:38:00 [facility] Afluria single dose Afluria single dose 2020-02-16 Completed [facility] - 15:38:00 [facility] Afluria single dose Afluria single dose 2020-02-16 Completed [facility] - 15:38:00 [facility] Afluria single dose Afluria single dose 2020-02-16 Completed [facility] - 15:38:00 [facility] Influenza Virus 2020-02-16 Completed Universit y of Vaccine Quad IM 3+ 00:00:00 [facility] Influenza Virus 2020-02-16 Completed Universit y of Vaccine Quad IM 3+ 00:00:00 [facility] Influenza Virus 2020-02-16 Completed Universit y of Vaccine Quad IM 3+ 00:00:00 [facility] Influenza Virus 2020-02-16 Completed Universit y of Vaccine Quad IM 3+ 00:00:00 [facility] Influenza Virus 2020-02-16 Completed Universit y of Vaccine Quad IM 3+ 00:00:00 [facility] Vitamin B12 Vitamin B12 2018-09-12 Completed [facility] - (Cyanocobalamin) (Cyanocobalamin) 11:41:00 [facility] Vitamin B12 Vitamin B12 2018-09-12 Completed [facility] - (Cyanocobalamin) (Cyanocobalamin) 11:41:00 [facility] Vitamin B12 Vitamin B12 2018-09-12 Completed [facility] - (Cyanocobalamin) (Cyanocobalamin) 11:41:00 [facility] Vitamin B12 Vitamin B12 2018-09-12 Completed [facility] - (Cyanocobalamin) (Cyanocobalamin) 11:41:00 [facility] Vitamin B12 Vitamin B12 2018-09-12 Completed [facility] - (Cyanocobalamin) (Cyanocobalamin) 11:41:00 [facility] Vitamin B12 Vitamin B12 2018-09-12 Completed [facility] - (Cyanocobalamin) (Cyanocobalamin) 11:41:00 [facility] Vitamin B12 Vitamin B12 2018-09-12 Completed [facility] - (Cyanocobalamin) (Cyanocobalamin) 11:41:00 [facility] Afluria Afluria 2017-12-09 Completed [facility] 09:[facility]00 [facility] Afluria Afluria 2017-12-09 Completed [facility] 09:50:00 [facility] Afluria Afluria 2017-12-09 Completed [facility] 09:50:00 [facility] Afluria Afluria 2017-12-09 Completed [facility] 09:50:00 [facility] Afluria Afluria 2017-12-09 Completed [facility] 09:50:00 [facility] Afluria Afluria 2017-12-09 Completed [facility] 09:50:00 [facility] Afluria Afluria 2017-12-09 Completed [facility] 09:50:00 [facility] Afluria Afluria 2017-12-09 Completed [facility] 09:50:00 [facility] Afluria Afluria 2017-12-09 Completed [facility] 09:50:00 [facility] Afluria Afluria 2017-12-09 Completed [facility] 09:50:00 [facility] Afluria Afluria 2017-12-09 Completed [facility] 09:50:00 [facility] Afluria Afluria 2017-12-09 Completed [facility] 09:50:00 [facility] Afluria Afluria 2017-12-09 Completed [facility] 09:50:00 [facility] Afluria Afluria 2017-12-09 Completed [facility] 09:50:00 [facility] Influenza Virus 2017-12-09 Completed Universit y of Vaccine (3+ yrs) 00:00:00 [facility] dical Branch Influenza Virus 2017-12-09 Completed Universit y of Vaccine (3+ yrs) 00:00:00 [facility] Influenza Virus 2017-12-09 Completed Universit y of Vaccine (3+ yrs) 00:00:00 [facility] d[facility] Branch Influenza Virus 2017-12-09 Completed Universit y of Vaccine (3+ yrs) 00:00:00 [facility] d[facility] Branch Influenza Virus 2017-12-09 Completed Universit y of Vaccine (3+ yrs) 00:00:00 [facility] Branch HPV9 2017-01-04 Completed University of 00:00:00 [facility] HPV9 2017-01-04 Completed University of 00:00:00 [facility] HPV9 2017-01-04 Completed University of 00:00:00 [facility] HPV9 2017-01-04 Completed University of 00:00:00 [facility] HPV9 2017-01-04 Completed University of 00:00:00 [facility] TDAP 2015-07-13 Completed University of 00:00:00 [facility] HPV9 2015-07-13 Completed University of 00:00:00 [facility] TDAP 2015-07-13 Completed University of 00:00:00 [facility] HPV9 2015-07-13 Completed University of 00:00:00 [facility] TDAP 2015-07-13 Completed University of 00:00:00 [facility] HPV9 2015-07-13 Completed University of 00:00:00 [facility] TDAP 2015-07-13 Completed University of 00:00:00 [facility] HPV9 2015-07-13 Completed University of 00:00:00 [facility] TDAP 2015-07-13 Completed University of 00:00:00 [facility] HPV9 2015-07-13 Completed University of 00:00:00 [facility] Rubella 2011-02-01 Completed University of 00:00:00 [facility] Rubella 2011-02-01 Completed University of 00:00:00 [facility] Rubella 2011-02-01 Completed University of 00:00:00 [facility] Rubella 2011-02-01 Completed University of 00:00:00 [facility] Rubella 2011-02-01 Completed University of 00:00:00 [facility] Td 2004-03-04 Completed University of 00:00:00 [facility] Td 2004-03-04 Completed University of 00:00:00 [facility] Td 2004-03-04 Completed University of 00:00:00 [facility] Td 2004-03-04 Completed University of 00:00:00 [facility] Td 2004-03-04 Completed University of 00:00:00 [facility] Vital Signs Vital Name Observation Time Observation Value Comments Source Systolic blood 2021-12-14 21:36:00 112 mm[Hg] Univer sity of pressure [facility] Diastolic blood 2021-12-14 21:36:00 87 mm[Hg] Unive rsity of pressure [facility] Heart rate 2021-12-14 21:36:00 98 /min Universi ty of [facility] Body temperature 2021-12-14 21:36:00 36.94 Laverne Univ ersity of [facility] Respiratory rate 2021-12-14 21:36:00 16 /min Univ ersity of [facility] Body height 2021-12-14 21:36:00 160 cm Universi ty of [facility] Body weight 2021-12-14 21:36:00 78.064 kg Universi ty of [facility] BMI 2021-12-14 21:36:00 30.49 kg/m2 Universi ty [facility] Oxygen saturation in 2021-12-14 21:36:00 98 /min [facility] Arterial blood by [facility] Pulse oximetry Branch height 2021-09-07 13:00:00 64 [in_i] [facility] weight 2021-09-07 13:00:00 175 [lb_av] [facility] temperature 2021-09-07 13:00:00 98 [degF] [facility] bmi 2021-09-07 13:00:00 30.04 kg/m2 [facility] blood pressure 2021-09-07 13:00:00 116 mm[Hg] [facility] - systolic [facility] blood pressure 2021-09-07 13:00:00 76 mm[Hg] [facility] - diastolic [facility] Systolic blood 2021-07-25 18:49:00 119 mm[Hg] Univer sity of [facility] Diastolic blood 2021-07-25 18:49:00 81 mm[Hg] Unive rsity of pressure [facility] Heart rate 2021-07-25 18:49:00 93 /min Universi ty of [facility] Body temperature 2021-07-25 18:49:00 37.06 Laverne Univ ersity of [facility] Respiratory rate 2021-07-25 18:49:00 16 /min [facility] Body height 2021-07-25 18:49:00 160 cm Universi ty [facility] Body weight 2021-07-25 18:49:00 77.111 kg Universi ty [facility] BMI 2021-07-25 18:49:00 30.11 kg/m2 [facility] Oxygen saturation in 2021-07-25 18:49:00 99 /min University Arterial blood by [facility] Pulse oximetry Branch height 2021-07-13 11:20:00 64 [in_i] [facility] weight 2021-07-13 11:20:00 173.6 [lb_av] [facility] temperature 2021-07-13 11:20:00 98.2 [degF] [facility] bmi 2021-07-13 11:20:00 29.8 kg/m2 [facility] oximetry 2021-07-13 11:20:00 97 % [facility] respiratory rate 2021-07-13 11:20:00 18 /min Comm on [facility] blood pressure 2021-07-13 11:20:00 108 mm[Hg] Common [facility] - systolic [facility] blood pressure 2021-07-13 11:20:00 62 mm[Hg] Common [facility] - diastolic [facility] height 2021-03-28 08:00:00 64 [in_i] [facility] weight 2021-03-28 08:00:00 175 [lb_av] [facility] temperature 2021-03-28 08:00:00 97 [degF] [facility] bmi 2021-03-28 08:00:00 30.04 kg/m2 [facility] blood pressure 2021-03-28 08:00:00 130 mm[Hg] Common [facility] - systolic [facility] blood pressure 2021-03-28 08:00:00 72 mm[Hg] [facility] height 2021-01-03 11:10:00 64 [in_i] [facility] - [facility] weight 2021-01-03 11:10:00 175 [lb_av] [facility] - [facility] temperature 2021-01-03 11:10:00 98 [degF] Common [facility]irit [facility] bmi 2021-01-03 11:10:00 30.04 kg/m2 [facility] - [facility] blood pressure 2021-01-03 11:10:00 132 mm[Hg] [facility] - systolic [facility] blood pressure 2021-01-03 11:10:00 70 mm[Hg] [facility] - diastolic [facility] height 2020-12-19 13:00:00 64 [in_i] [facility] weight 2020-12-19 13:00:00 175.4 [lb_av] [facility] bmi 2020-12-19 13:00:00 30.1 kg/m2 Common S [facility]irit [facility] height 2020-12-05 10:20:00 64 [in_i] Common S pirit [facility] weight 2020-12-05 10:20:00 175.4 [lb_av] Common [facility] temperature 2020-12-05 10:20:00 97.4 [degF] Common [facility] - [facility] bmi 2020-12-05 10:20:00 30.1 kg/m2 [facility] S pirit [facility] oximetry 2020-12-05 10:20:00 100 % [facility] S pirit [facility] respiratory rate 2020-12-05 10:20:00 18 /min Comm on [facility] blood pressure 2020-12-05 10:20:00 135 mm[Hg] [facility] - systolic [facility] blood pressure 2020-12-05 10:20:00 87 mm[Hg] [facility] - [facility] height 2020-11-02 08:10:00 64 [in_i] [facility] weight 2020-11-02 08:10:00 176.3 [lb_av] [facility] temperature 2020-11-02 08:10:00 98.1 [degF] [facility] bmi 2020-11-02 08:10:00 30.26 kg/m2 [facility] oximetry 2020-11-02 08:10:00 98 % [facility] respiratory rate 2020-11-02 08:10:00 17 /min Comm on [facility] blood pressure 2020-11-02 08:10:00 125 mm[Hg] [facility] systolic [facility] blood pressure 2020-11-02 08:10:00 80 mm[Hg] [facility] diastolic [facility] BP Diastolic 2020-04-25 00:00:00 81 mm[Hg] [facility] BP Systolic 2020-04-25 00:00:00 123 mm[Hg] [facility] Body Weight 2020-04-25 00:00:00 2992 [oz_av] [facility] Procedures Procedure Date / Time Performed Performing Clinician Formerly [facility] e POCT TEST 2021-07-25 19:22:00 Anna Calzada [facility] DISCLOSURE AND 2021-07-25 05:01:00 Doctor Unassigned, No [facility] CONSENT, MEDICAL AND Name Medical [facility] SURGICAL PROCEDURES Plan of Care Planned Activity Planned Date Details Comments Source Diagnostic Test 2020-04-25 rapid SARS CoV 2 Ag, Swee ma Community Pending 00:00:00 QL [place], respiratory Hospital Clinics specimen [code = rapid SARS CoV 2 Ag, QL [place], respiratory specimen] Instructions [facility] s Encounters Start End Encounter Admission Attending Care Care Encounter Source Date/Time Date/Time Type Type Clinicians Facility Department ID 2021-07-20 Outpatient Quintero, [facility] [id number] Common 16:13:01 Count Includes [facility] 2021-07-13 Outpatient Quintero, STLMLC STLMLC Common 08:27:01 Quinn [facility] 2021-05-11 Outpatient Quintero, STLMLC STLMLC Common 10:57:01 Quinn [facility] 2021-03-29 Outpatient Quintero, STLMLC STLMLC Common 14:36:17 Quinn [facility] 2021-03-29 Outpatient Quintero, STLMLC STLMLC Common 14:07:40 Quinn [facility] 2021-03-29 Outpatient Quintero, STLMLC STLMLC Common 14:01:49 Quinn [id number] [facility] 2021-03-29 Outpatient Quintero, STLMLC STLMLC Common 13:55:48 Quinn [id number] [facility] 2021-03-29 Outpatient Quintero, STLMLC STLMLC Common 13:55:20 Quinn [id number] [facility] 2021-03-29 Outpatient Quintero, STLMLC STLMLC Common 13:40:15 Quinn [id number] [facility] 2021-03-29 Outpatient Quintero, STLMLC STLMLC Common 13:39:55 Quinn [id number] [facility] 2021-03-29 Outpatient Quintero, STLMLC STLMLC Common 13:13:36 Quinn [id number] [facility] 2021-03-29 Outpatient Quintero, STLMLC STLMLC Common 13:12:43 Quinn [id number] [facility] 2021-03-29 Outpatient Quintero, STLMLC STLMLC Common 13:05:56 Quinn [id number] [facility] 2021-03-29 Outpatient Quintero, STLMLC STLMLC [id number] Common 12:47:28 Quinn [id number] [facility] 2021-03-29 Outpatient Quintero, [facility] Common 12:39:36 Quinn [id number] [facility] 2021-03-29 Outpatient Quintero, STLML[facility] [id number] Common 12:39:04 Quinn [id number] [facility] 2021-03-29 Outpatient Quintero, [facility]LML[facility] [id number] Common 12:20:18 Quinn [id number] [facility] 2021-03-29 Outpatient Quintero, STLMLC [facility] [id number] Common 12:15:07 Quinn [id number] [facility] 2021-03-29 Outpatient Quintero, [facility]LML[facility] [id number] Common 12:13:43 Quinn [id number] [facility] 2021-03-29 Outpatient Quintero, STLC [facility] [id number] Common 12:09:42 Quinn [id number] [facility] 2021-03-29 [facility] 11:59:40 Quinn [id number] [facility] 2021-12-14 2021-12-14 Outpatient R MIKE BLOCK [facility] B [id number] [facility] 16:00:00 17:08:10 MIKE BLOCK [facility] 2021-12-14 2021-12-14 Office Twila [facility] [id number] [facility] 16:00:00 17:08:10 Visit Mike GARCIA [id number] it y of WOMEN'S [id number] [facility] [phone] [address] 2021-12-14 2021-12-14 Outpatient R MIKE BLOCK [facility] B [id number] [facility] 16:30:00 16:30:00 MIKE BLOCK [facility] 2021-11-30 2021-11-30 Outpatient R ANNA CALZADA [facility] [id number] [facility] 08:30:00 08:30:00 ity [facility] 2021-09-27 2021-09-27 Outpatient JOY NESS [facility] [address] 00:00:00 00:00:00 SSA 0727 [facility] 2021-09-07 2021-09-07 OFFICE STLMLC STLC [id number] Co mmon 00:00:00 00:00:00 VISIT Spirit ESTAB PT - CHI LEVEL 4 [facility] 2021-08-30 2021-08-30 (TEL) STLMLC STLC [id number] Co mmon 00:00:00 00:00:00 Spirit - CHI [facility] 2021-07-25 2021-07-25 Outpatient R JOSEDALIAN [facility] [id number] Univers 13:30:00 14:37:07 ity of [facility] 2021-07-25 2021-07-25 Office Anna Calzada [facility] [id number] Univers 13:30:00 14:37:07 Visit RADHA [id number] it y of [id number] [id number] [facility] [address] 2021-07-25 2021-07-25 Orders Doctor NANCI [id number] Univers 00:00:00 00:00:00 Only Unassigned, HERO [id number] ity of [facility] [id number] [place] as [phone] [facility] 00[address] Branch 2021-07-17 2021-07-17 Outpatient R ANNA CALZADA [facility] [id number] Univers 10:15:00 10:15:00 ity [facility] 2021-07-13 2021-07-13 [facility] [id number] Co mmon 00:00:00 00:00:00 VISIT Elver ESTAB PT - CHI LEVEL 4 [facility] 2021-06-30 2021-06-30 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 Lab, Ang - Db [facility] [id number] Univers 10:00:00 10:15:00 Visit Anna Calzada [id number] ity of [place] [id number] Delonte as CHRIS?BLEA [id number] Vt missy [facility] [address] MEDICAL OFFICE [facility] 2021-06-30 2021-06-30 Outpatient R ANNA CALZADA [facility] [id number] Univers 10:00:00 10:00:00 ity of [facility] 2021-06-30 2021-06-30 Outpatient R [facility] [id number] Univers 08:45:00 08:45:00 ity of [facility] 2021-06-24 2021-06-24 Refill Anna Calzada [facility] 1.2.840.114 [id number] Univers 00:00:00 00:00:00 [facility] [id number] i ty [facility] [id number] [place] [phone] [facility] 134 [facility] 2021-06-23 2021-06-23 Office Anna Calzada [facility] 1.2.840.114 [id number] Univers 13:00:00 13:56:11 Visit [place] [id number] i ty of [id number] [id number] Vt dic[address] 2021-06-23 2021-06-23 Outpatient R ANNA CALZADA [facility] [id number] Univers 13:00:00 13:56:11 ity of [facility] 2021-06-23 2021-06-23 Outpatient R ANNA CALZADA [facility] [id number] Univers 13:00:00 13:00:00 ity of [facility] 2021-06-23 2021-06-23 Orders Doctor NANCI [id number] Univers 00:00:00 00:00:00 Only Unassigned, HERO [id number] [facility] [id number] [place] [phone] [address] 2021-05-24 2021-05-24 (TEL) STLMLC STLMLC [id number] Co mmon 00:00:00 00:00:00 Spirit - [facility] 2021-05-09 2021-05-09 Outpatient Yu DO, [facility] [id number] Univers 13:00:00 13:00:00 LUCIA menjivar [facility] 2021-05-09 2021-05-09 (TEL) STLMLC STLMLC [id number] Co mmon 00:00:00 00:00:00 [facility] 2021-03-29 2021-03-29 Outpatient JOY MARY ELLEN [facility] [address] 07:40:00 07:40:[address] [facility] Outre h Program 2021-03-28 2021-03-28 OFFICE STLMLC STLMLC [id number] Co mmon 00:00:00 00:00:00 VISIT EST Spir it PT LEVEL 3 - [facility] 2021-01-03 2021-01-03 OFFICE STLMLC STLMLC [id number] Co mmon 00:00:00 00:00:00 VISIT Spirit ESTAB PT - CHI LEVEL 4 [facility] 2020-12-19 2020-12-19 OFFICE STLMLC STLMLC [id number] Co mmon 00:00:00 00:00:00 VISIT EST Spir it PT LEVEL 3 - [facility] 2020-12-19 2020-12-19 (TEL) STLMLC STLMLC [id number] Co mmon 00:00:00 00:00:00 [facility] 2020-12-05 2020-12-05 PREV VISIT STLMLC STLMLC [id number] Common 00:00:00 00:00:00 EST AGE Spirit 19-39 - CHI [facility] 2020-11-02 2020-11-02 OFFICE STLMLC STLMLC [id number] Co mmon 00:00:00 00:00:00 VISIT EST Spir it PT LEVEL 3 - [facility] 2020-10-31 2020-10-31 (TEL) STLMLC STLMLC [id number] Co mmon 00:00:00 00:00:00 [facility] 2020-10-31 2020-10-31 OFFICE STLMLC STLMLC [id number] Co mmon 00:00:00 00:00:00 VISIT [facility] LEVEL 1 [facility] 2020-10-18 2020-10-18 (TEL) STLMLC STLMLC [id number] Co mmon 00:00:00 00:00:00 [facility] 2020-08-15 2020-08-15 Outpatient STLMLC STLMLC [id number] Common 00:00:00 00:00:00 [facility] 2020-07-10 2020-07-10 Outpatient [place] [id number] [place] 01:05:00 01:05:00 _L 509 [facility] 2020-07-06 2020-07-06 Outpatient STLMLC STLC [id number] Common 00:00:00 00:00:00 [facility] 2020-06-06 2020-06-06 Outpatient STLMLC STLMLC [id number] Common 00:00:00 00:00:00 [facility] 2020-06-06 2020-06-06 Outpatient STLMLC STLC [id number] Common 00:00:00 00:00:00 [facility] 2020-06-05 2020-06-05 [facility] [place] 01:03:00 01:03:00 _L 404 [facility] i ty [facility] 2020-05-24 2020-05-24 Patient Shawn [facility] [id number] Univers 00:00:00 00:00:00 Outreach [place] PRIMARY [id number] i ty of [facility] [id number] Lyric PERDUE [id number] Me dical [address] 2020-05-01 2020-05-01 Outpatient [place] [id number] [place] 01:03:00 01:03:00 _L 228 [facility] 2020-04-25 2020-04-25 Outpatient [place] [id number] [place] 04:16:00 04:16:00 _L 222 Commun i ty [facility] 2020-04-25 2020-04-25 Kimber Salazar [facility] [place] 202 [id number] [place] 00:00:00 00:00:00 [facility] cue[facility] Hospital - ty [address] [facility], [facility] Clinics [address], [place] [address] , Ph. 2020-04-25 2020-04-25 [facility] [id number] 00:00:00 00:00:00 , Kimber [id number] 2020-03-26 2020-03-26 Laboratory Lab, [facility] Pob I [facility] 1.2. 840.114 [id number] Univers 17:03:18 17:23:18 [facility] [id number] [facility] [id number] Del[place] as Professio [phone] [address] Office [address] 2020-03-26 2020-03-26 [facility]patient [facility] [id number] Univers 17:00:00 17:00:00 [facility] 2020-03-22 2020-03-22 Outpatient STLMLC STLMLC [id number] Common 00:00:00 00:00:00 [facility] 2020-03-16 2020-03-16 Outpatient STLMLC STLMLC [id number] Common 00:00:00 00:00:00 [facility] 2020-03-02 2020-03-02 Outpatient STLMLC STLMLC [id number] Common 00:00:00 00:00:00 [facility] 2020-02-23 2020-02-23 Outpatient STLMLC STLMLC [id number] Common 00:00:00 00:00:00 [facility] 2020-02-22 2020-02-22 Outpatient STLMLC STLMLC [id number] Common 00:00:00 00:00:00 [facility] 2020-02-16 2020-02-16 Outpatient STLMLC STLMLC [id number] Common 00:00:00 00:00:00 [facility] 2020-02-06 2020-02-06 Laboratory Lab, [facility] I [facility] 1.2. 840.114 [id number] Univers 17:38:46 17:53:46 Only Aria Fletcher [id number] ity of [place] [id number] [place] Professio [id number] [address] Office [address] 2020-02-06 2020-02-06 Outpatient R SAMIA [facility] [id number] Univers 17:30:00 17:30:00 ARIA menjivar o f [facility] 2020-02-03 2020-02-03 Outpatient STLMLC STLMLC [id number] Common 00:00:00 00:00:00 [facility] 2020-01-25 2020-01-25 Laboratory Lab, [facility] 1.2. 840.114 [id number] Univers 18:37:49 18:46:35 Only Jannet [facility] [id number] ity of [place] [id number] [facility] Professio [phone] [address] Office [facility] 2020-01-25 2020-01-25 Outpatient R DIALLO [facility] [id number] Univers 18:40:00 18:40:00 JANNET ity of [facility] 2020-01-04 2020-01-04 Outpatient STLMLC STLMLC [id number] Common 00:00:00 00:00:00 [facility] 2019-07-24 2019-07-24 Outpatient R TJ, [facility] [id number] Univers 10:30:00 10:30:00 AILIN menjivar o f The [facility] 2019-06-26 2019-06-26 [facility] [id number] Univers 09:38:05 10:31:40 Visit Ailin Obrien ORACLE FUSION CONSULTANT [id number] ity of REGIONAL [id number] [place] as MATERNAL [phone] [facility] ical & CHILD [address] [place] [address] 2019-06-26 2019-06-26 [facility] [id number] Univers 09:30:00 09:30:00 AILIN menjivar o f [facility] 2019-06-26 2019-06-26 Orders Doctor CHRISTINE [id number] Univers 00:00:00 00:00:00 Only Unassigned, HERO [id number] ity of [place] [facility] [id number] [place] as [phone] [address] 2019-06-18 2019-06-18 Telephone Tj [facility] [id number] [facility] 00:00:00 00:00:00 Ailin Obrien ORACLE FUSION CONSULTANT [id number] ity of [facility] [id number] [place] as MATERNAL [phone] [facility] ical & CHILD 107 [facility] 2018-09-12 2018-09-12 [facility] [id number] Common 11:15:00 11:15:00 [place] [address] [facility] 2018-08-14 2018-08-14 [facility] [id number] Common 11:15:00 11:15:00 [place] [address] [facility] 2018-05-19 2018-05-19 [facility] [id number] Common 10:30:00 10:30:00 [place] [address] [facility] 2018-03-18 2018-03-18 [facility] [id number] Common 08:00:00 08:00:00 [place] [address] [facility] 2018-02-21 2018-02-21 [facility] [id number] Common 11:35:00 11:35:00 [place] [address] [facility] 2018-02-13 2018-02-13 [facility] [id number] Common 13:13:00 13:13:00 t [facility] [address] [facility] 2018-02-13 2018-02-13 [facility] [id number] Common 10:15:00 10:15:00 t [facility] [address] [facility] Results Test Description Test Time Test Comments Results Result Comments Source POCT TEST 2021-07-25 19:22:00 Test Item Value Reference Range Interpretation Comme nts POCT PREG (test code = 1605) Negative On board controls acceptable with C Line (test code = 3574) Yes POCT PREG LOT # (test code = 3575) POCT PREG TEST DATE (test code = 3576) [id number] 19:22:00 Test Item Value Reference Range Interpretation Comments POCT PREG (test code = 1605) Negative On board controls acceptable with C Yes Line (test code = 3574) POCT PREG LOT # (test code = 3575) POCT PREG TEST DATE (test code = 3576) [facility] Ag [Presence] in Respiratory specimen by Rapid [id number] 13:34:00 Test Item Value Reference Range Interpretation Comments SARS CoV 2 (test code = SARS CoV 2) [facility] Antigen[facility]OV 2 Antigen
[2021-12-19] MEDS ORDERED: BISACODYL 10 MG RECTAL SUPP ONE (18:40)
[2021-12-19] MEDS ORDERED: ONDANSETRON 4 MG/2 ML VIAL ONE (18:40)
[2021-12-19] MEDS ORDERED: NA CHLORIDE 0.9% 1,000 ML ONE (18:40)
[2021-12-19] MEDS ORDERED: LACTULOSE 20 GM/30 ML UCUP ONE ×2 (18:41→19:03)
[2021-12-19 19:04] LABS: Hematocrit 40.1 % (36.0-45.0); Lymphocytes % 30.8 % (15.3-44.8); MCV 90.5 fL (80-100); RBC Red Blood Cell Count 4.44 M/uL (3.86-4.86)
[2021-12-19 19:13] LABS: Urine Blood Negative (Negative); Urine Glucose Negative (Negative); Urine Protein Negative (Negative); Urine Specific Gravity >=1.030 (1.005-1.030)
[2021-12-19 19:21] LABS: Albumin 4.5 g/dL (3.4-5.0); Bilirubin Total 0.5 mg/dL (0.2-1.0); Potassium 3.2 mmol/L (3.5-5.1); Protein, Total 7.5 g/dL (6.4-8.2)
[2021-12-19] MEDS ORDERED: POTASSIUM 25 MEQ EFFERV TAB ONE (19:52)
--- NOTE | 2021-12-19 21:17 | RAD REPORT ---
EXAM DESCRIPTION: CT - Abdomen Pelvis Wo Contrast - 12/19/2021 9:05 pm CLINICAL HISTORY: Abdominal pain /constipation COMPARISON: None TECHNIQUE: Computed axial tomography of the abdomen and pelvis was obtained. IV was not requested. O ral contrast was given. Coronal reconstructions performed. All CT scans are performed using dose optimization technique as appropriate and may include automated exposure control or mA/KV adjustment according to patient size. FINDINGS: The evaluation of solid organs and vessels is limited secondary to the lack of contrast a dministration. The liver, spleen, pancreas, adrenals and kidneys appear grossly normal. The appendix is normal. There is no evidence of diverticulitis. No adnexal mass Tiny umbilical hernia IMPRESSION: No acute abnormality is displayed.
--- NOTE | 2021-12-19 21:20 | EDPHYS ---
Physician Documentation [facility] Name: Marilyn Valenzuela Age: 31 yrs Sex: Female : 1990 Arrival Date: 12/19/2021 Time: 17:44 Bed 24 Private MD: Leon [facility] ED Physician Narciso Mittal HPI: 12/19 18:49 This 31 yrs old Female presents to ER via Ambulatory with complaints of michaelle Constipation. 18:49 The patient presents with abdominal pain in the upper abdomen, in the lower abdomen. michaelle Onset: The symptoms/episode began/occurred 5 day(s) ago. The symptoms do not radiate. Associated signs and symptoms: none. Pertinent positives: constipation. The symptoms are described as crampy. Modifying factors: The symptoms are alleviated by nothing, the symptoms are aggravated by nothing. Severity of pain: At its worst the pain was mild in the emergency department the pain is unchanged. The patient has not experienced similar symptoms in the past. 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 - Social history:: Smoking status: Patient denies any tobacco usage or history of. - Family history:: not pertinent. ROS: 18:49 Constitutional: Negative for fever, chills, and weight loss, Eyes: Negative for injury, michaelle pain, redness, and discharge, ENT: Negative for injury, pain, and discharge, Neck: Negative for injury, pain, and swelling, Cardiovascular: Negative for chest pain, palpitations, and edema, Respiratory: Negative for shortness of breath, cough, wheezing, and pleuritic chest pain, Abdomen/GI: Negative for abdominal pain, nausea, vomiting, diarrhea, and constipation, Back: Negative for injury and pain, : Negative for injury, bleeding, discharge, and swelling, MS/Extremity: Negative for injury and deformity, Skin: Negative for injury, rash, and discoloration, Neuro: Negative for headache, weakness, numbness, tingling, and seizure, Psych: Negative for depression, anxiety, suicide ideation, homicidal ideation, and hallucinations, Allergy/Immunology: Negative for hives, rash, and allergies, Endocrine: Negative for neck swelling, polydipsia, polyuria, polyphagia, and marked weight changes, Hematologic/Lymphatic: Negative for swollen nodes, abnormal bleeding, and unusual bruising. Exam: 18:49 Constitutional: This is a well developed, well nourished patient who is awake, alert, michaelle and in no acute distress. Head/Face: Normocephalic, atraumatic. Eyes: Pupils equal round and reactive to light, extra-ocular motions intact. Lids and lashes normal. Conjunctiva and sclera are non-icteric and not injected. Cornea within normal limits. Periorbital areas with no swelling, redness, or edema. ENT: Nares patent. No nasal discharge, no septal abnormalities noted. Tympanic membranes are normal and external auditory canals are clear. Oropharynx with no redness, swelling, or masses, exudates, or evidence of obstruction, uvula midline. Mucous membranes moist. Neck: Trachea midline, no thyromegaly or masses palpated, and no cervical lymphadenopathy. Supple, full range of motion without nuchal rigidity, or vertebral point tenderness. No Meningismus. Chest/axilla: Normal chest wall appearance and motion. Nontender with no deformity. No lesions are appreciated. Cardiovascular: Regular rate and rhythm with a normal S1 and S2. No gallops, murmurs, or rubs. Normal PMI, no JVD. No pulse deficits. Respiratory: Lungs have equal breath sounds bilaterally, clear to auscultation and percussion. No rales, rhonchi or wheezes noted. No increased work of breathing, no retractions or nasal flaring. Abdomen/GI: Soft, non-tender, with normal bowel sounds. No distension or tympany. No guarding or rebound. No evidence of tenderness throughout. Back: No spinal tenderness. No costovertebral tenderness. Full range of motion. Skin: Warm, dry with normal turgor. Normal color with no rashes, no lesions, and no evidence of cellulitis. MS/ Extremity: Pulses equal, no cyanosis. Neurovascular intact. Full, normal range of motion. Neuro: Awake and alert, GCS 15, oriented to person, place, time, and situation. Cranial nerves II-XII grossly intact. Motor strength 5/5 in all extremities. Sensory grossly intact. Cerebellar exam normal. Normal gait. Psych: Awake, alert, with orientation to person, place and time. Behavior, mood, and affect are within normal limits. Vital Signs: 18:10 BP 125 / 77; Pulse 99; Resp 16; Temp 98.3; Pulse Ox 100% ; Weight 74.84 kg; Height 5 ll1 ft. 3 in. (160.02 cm); Pain 9/10; 20:00 BP 108 / 78; Pulse 74; Resp 20; Pulse Ox 100% on R/A; em6 21:00 BP 116 / 80; Pulse 82; Resp 18; Pulse Ox 100% on R/A; em6 18:10 Body Mass Index 29.23 (74.84 kg, 160.02 cm) ll1 MDM: 18:10 Patient medically screened. michaelle 18:51 Differential diagnosis: cholecystitis, Cholelithiasis, diverticulitis, non-specific abd michaelle pain, pancreatitis, Peptic Ulcer Disease, Ureterolithiasis, urinary tract infection. Data reviewed: vital signs, nurses notes, lab test result(s), radiologic studies, CT scan. Data interpreted: athletic monitor: not applicable for this patient encounter. rate is 99 beats/min, rhythm is regular, Pulse oximetry: on room air is 100 %. 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 12/19 18:15 Order name: CBC with Diff; Complete Time: 19:26 [facility] 12/19 18:15 Order name: CMP; Complete Time: 19:26 [facility] 12/19 18:15 Order name: Lipase; Complete Time: 19:26 [facility] 12/19 19:14 Order name: Urine Dipstick-Ancillary; Complete Time: 19:26 [facility] 12/19 18:15 Order name: IV Saline Lock; Complete Time: 19:00 [facility] 12/19 19:28 Order name: Abdomen ; Complete Time: 21:19 [facility] 12/19 18:15 Order name: Labs collected and sent; Complete Time: 19:00 [facility] 12/19 18:15 Order name: Urine Dipstick-Ancillary (obtain specimen); Complete Time: 19:12 [facility] 12/19 18:15 Order name: Urine Test (obtain specimen); Complete Time: 19:13 michaelle Administered Medications: 19:03 Drug: NS 0.9% 1000 ml Route: IV; Rate: 1 bolus; Site: left antecubital; em6 21:41 Follow up: Response: No adverse reaction; IV Status: Completed infusion; IV Intake: em6 1000ml 19:03 Drug: Zofran (Ondansetron) 4 mg Route: IVP; Site: left antecubital; em6 19:53 Follow up: Response: No adverse reaction em6 19:03 Drug: Lactulose 30 grams Volume: 45 ml; Route: PO; em6 19:52 Follow up: Response: No adverse reaction em6 19:03 Drug: Lactulose 30 grams Volume: 45 ml; Route: PO; em6 19:52 Follow up: Response: No adverse reaction em6 19:04 Drug: Dulcolax (bisacodyl) Suppository 10 mg Route: LA; em6 19:53 Follow up: Response: No adverse reaction em6 19:52 Drug: Potassium Effervescent Tablet 25 mEq Route: PO; em6 20:30 Follow up: Response: No adverse reaction em6 Disposition Summary: 12/19/21 21:19 Discharge Ordered Location: Home snw Problem: new snw Symptoms: have improved snw Condition: Stable snw Diagnosis - Constipation snw - Constipation, unspecified snw Followup: michaelle - With: - When: 2 - 3 days - Reason: Recheck today's complaints, Continuance of care, Re-evaluation by your physician Followup: michaelle - With: - When: 2 - 3 days - Reason: Recheck today's complaints, Re-evaluation by your physician Discharge Instructions: - Discharge Summary Sheet michaelle - Constipation, Adult michaelle - Constipation, Adult, [id number] michaelle Forms: - Medication Reconciliation Form snw - Thank You Letter snw - Antibiotic Education snw - Prescription Opioid Use snw - Work release form em6 Prescriptions: - Dulcolax (bisacodyl) 10 mg Rectal suppository - insert 1 suppository by RECTAL route every 12 hours; 14 suppository; Refills: michaelle 0, Product Selection Permitted - Lactulose 10 gram/15 mL Oral Solution - take 30 milliliters by ORAL route once daily; 300 milliliter; Refills: 0, michaelle Product Selection Permitted Signatures: Dispatcher [employer] EDMS Narciso Mittal MD MD cha Waters, Shelly, TAILOR FITTER-C TAILOR FITTER-Csnw Claudia Aparicio, RN RN ll1 Sari Coronado RN RN em6 Corrections: (The following items were deleted from the chart) 19:28 18:16 Abdomen Pelvis W Con+CT.RAD.BRZ ordered. EDMS EDMS
--- NOTE | 2021-12-19 21:20 | ER ---
Nurse's Notes [facility] Name: Marilyn Valenzuela Age: 31 yrs Sex: Female : 1990 Arrival Date: 12/19/2021 Time: 17:44 Bed 24 Private MD: Quinn Quintero Diagnosis: Constipation;Constipation, unspecified Presentation: 12/19 18:10 Chief complaint: Patient states: No BM since 12/10/21. Feels bloated, nausea, and dizzy ll1 since Saturday. No fever. Coronavirus screen: Vaccine status: Patient reports being unvaccinated. Client denies travel out of the [place] in the last 14 days. At this time, the client does not indicate any symptoms associated with coronavirus-19. Ebola Screen: Patient denies travel to an Ebola-affected area in the 21 days before illness onset. Initial Sepsis Screen: Does the patient meet any 2 criteria? No. Patient's initial sepsis screen is negative. Does the patient have a suspected source of infection? Yes: Acute abdominal pain. Risk Assessment: Do you want to hurt yourself or someone else? Patient reports no desire to harm self or others. Onset of symptoms was December 10, 2021. 18:10 Method Of Arrival: Ambulatory ll1 18:10 Acuity: RAMONA 3 ll1 Triage Assessment: 18:12 General: Appears in no apparent distress. Behavior is cooperative, appropriate for age. ll1 Pain: Complains of pain in abdomen Pain currently is 9 out of 10 on a pain scale. GI: Reports bloating, constipation, nausea. 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 - Social history:: Smoking status: Patient denies any tobacco usage or history of. - Family history:: not pertinent. Screenin:01 Abuse screen: Denies threats or abuse. Nutritional screening: No deficits noted. em6 Tuberculosis screening: No symptoms or risk factors identified. Fall Risk IV access (20 points). Total Baum Fall Scale indicates No Risk (0-24 pts). Assessment: 19:00 General: Appears comfortable, Behavior is cooperative. Pain: Complains of pain in em6 abdomen Pain does not radiate. Pain currently is 7 out of 10 on a pain scale. Quality of pain is described as crampy. Neuro: Level of Consciousness is awake, alert, obeys commands, Oriented to person, place, time, situation. Cardiovascular: Patient's skin is warm and dry. Respiratory: Airway is patent Respiratory effort is even, unlabored, Respiratory pattern is regular, symmetrical. GI: Abdomen is non-distended, Bowel sounds present X 4 quads. Abd is soft and non tender X 4 quads. Reports constipation, nausea. : No signs and/or symptoms were reported regarding the genitourinary system. EENT: No signs and/or symptoms were reported regarding the EENT system. Derm: No signs and/or symptoms reported regarding the dermatologic system. Musculoskeletal: Circulation, motion, and sensation intact. Range of motion: intact in all extremities. 20:00 Reassessment: Patient appears in no apparent distress at this time. No changes from em6 previously documented assessment. Patient and/or family updated on plan of care and expected duration. Pain level reassessed. Patient is alert, oriented x 3, equal unlabored respirations, skin warm/dry/pink. 21:00 Reassessment: Patient appears in no apparent distress at this time. No changes from em6 previously documented assessment. Patient and/or family updated on plan of care and expected duration. Pain level reassessed. Patient is alert, oriented x 3, equal unlabored respirations, skin warm/dry/pink. Vital Signs: 18:10 BP 125 / 77; Pulse 99; Resp 16; Temp 98.3; Pulse Ox 100% ; Weight 74.84 kg; Height 5 ll1 ft. 3 in. (160.02 cm); Pain 9/10; 20:00 BP 108 / 78; Pulse 74; Resp 20; Pulse Ox 100% on R/A; em6 21:00 BP 116 / 80; Pulse 82; Resp 18; Pulse Ox 100% on R/A; em6 18:10 Body Mass Index 29.23 (74.84 kg, 160.02 cm) ll1 ED Course: 17:44 Patient arrived in ED. mr 17:44 Quinn Quintero DO is Private Physician. mr 18:10 Narciso Mittal MD is Attending Physician. michaelle 18:12 Triage completed. ll1 18:12 Arm band placed on. ll1 18:33 Patient placed in an exam room, on a stretcher. ll1 18:37 Sari Coronado, YAYA is Primary Nurse. em6 19:00 Inserted saline lock: 20 gauge in left antecubital area, using aseptic technique. Blood em6 collected. 19:02 Bed in low position. Call light in reach. Side rails up X2. Pulse ox on. NIBP on. Warm em6 blanket given. 19:46 Yu Hoover FNP-C is PHCP. snw 20:[address] via stretcher. kr3 21:07 Abdomen In Process Unspecified. EDMS 21:19 Quinn Quintero DO is Referral Physician. snw 21:19 Eugenia Mora MD is Referral Physician. snw 21:40 No provider procedures requiring assistance completed. IV discontinued, intact, em6 bleeding controlled, No redness/swelling at site. Pressure dressing applied. Administered Medications: 19:03 Drug: NS 0.9% 1000 ml Route: IV; Rate: 1 bolus; Site: left antecubital; em6 21:41 Follow up: Response: No adverse reaction; IV Status: Completed infusion; IV Intake: em6 1000ml 19:03 Drug: Zofran (Ondansetron) 4 mg Route: IVP; Site: left antecubital; em6 19:53 Follow up: Response: No adverse reaction em6 19:03 Drug: Lactulose 30 grams Volume: 45 ml; Route: PO; em6 19:52 Follow up: Response: No adverse reaction em6 19:03 Drug: Lactulose 30 grams Volume: 45 ml; Route: PO; em6 19:52 Follow up: Response: No adverse reaction em6 19:04 Drug: Dulcolax (bisacodyl) Suppository 10 mg Route: MA; em6 19:53 Follow up: Response: No adverse reaction em6 19:52 Drug: Potassium Effervescent Tablet 25 mEq Route: PO; em6 20:30 Follow up: Response: No adverse reaction em6 Medication: 21:41 VIS not applicable for this client. em6 Intake: 21:41 IV: 1000ml; Total: 1000ml. em6 Outcome: 21:19 Discharge ordered by . snw 21:40 Discharged to home ambulatory. em6 21:40 Condition: stable 21:40 Discharge instructions given to patient, Instructed on discharge instructions, follow up and referral plans. medication usage, Demonstrated understanding of instructions, follow-up care, medications, Prescriptions given X 2. 21:41 Patient left the ED. em6 Signatures: Dispatcher [employer] EDMS Narciso Mittal MD MD cha Waters, Shelly, FAMILY MEMBER CARETAKER-C FAMILY MEMBER CARETAKER-Csnw Miesha Peña mr Claudia Aparicio, RN RN ll1 Chioma Cervantes, YAYA RN kr3 Sari Coronado, YAYA RN em6
[2021-12-19 22:38] VITALS: TEMP 98.3; O2SAT 100
[2021-12-19 22:50] VITALS: BP 116/80
== END 2021-12-19 21:41 | disposition home or self-care (01) ==
LOC: ER 17:41
DX: K59.00 Constipation, unspecified (principal)
CPT/HCPCS: 96361; 85025; 36415; 81003; 83690; 80053; 74176; 96374; 99284; J7030; J2405

== ENCOUNTER 2023-06-19 13:53 | Emergency (ER) | payer BC ==
--- OUTSIDE RECORDS SUMMARY | 2023-06-19 13:57 | XMS REPORT | Continuity of Care Document ---
Author Name Unknown Address [address] [facility] [place] [address] [facility] Address [address] [facility] [place] [address] Care Team Providers Care Orthotics Prosthetics Technician Name Role Phone GUADALUPE QUINTERO Primary Care Physician Unavailab Gu[address] Street Attending Clinician Unavailable NORMA GALLEGOS Attending Clinician Unavailable NORMA GALLEGOS Attending Clinician Unavailable MAXWELL PICHARDO Attending Clinician Unavailable CALIN CHACON Attending Clinician Unavailabl e Doctor Unassigned, [place] Attending Clinician U navailable TRITSCHLMIKE JURADO Attending Clinician Unavaila ble TRITSCHLTONY JURADOYAL Attending Clinician Unavaila ble UNKNOWN, ATTENDING Attending Clinician Unavailab ANNA Epstein Attending Clinician Unavailable YISSEL_REYNALDO Attending Clinician Unavailable Anna Calzada MD Attending Clinician [phone] Lab, Ang - Db Attending Clinician Unavailable LUCIA DO Attending Clinician Unavailable CAROLINE Attending Clinician Unavailable Colten Escobar DO Attending Clinician [phone] Kimber Powell Attending Clinician [phone] Lab, Adc Fam Pob I Attending Clinician Unavailab Jannet Hussein Attending Clinician [phone] JANNET LANDRUM Attending Clinician Unavailable Aria Nava Attending Clinician [phone] ARIA FLETCHER Attending Clinician Unavailable AILIN SPENCER Attending Clinician Unavail able Ailin Ramirez Attending Clinician + YISSELED Admitting Clinician Unavailable CAROLINE Admitting Clinician Unavailable Payers Payer Name Policy Type Policy Number Effective Date Expirati on Date Source [facility] [id number] 2020 00:00:00 [facility] [id number] 2018 00:00:00 [place] [id number] 2020 00:00:00 [facility] Problems Condition Name Condition Details Condition Category Status Onset Date Resolution Date Last Treatment Date Treating Clinician Comments Source Urge incontinen ce of urine Urge incontinen ce of urine Disease Active 06-19 00:00: 00 [facility] Chronic fatigue Chronic fatigue Disease Active 2021-03 0-14 00:00: 00 [facility] Myalgia, multiple sites Myalgia, multiple sites Disease Active 2021-03 0-14 00:00: 00 [facility] Hearing loss Hearing loss Disease Active 06-19 00:00: 00 [facility] Chronic constipati on Chronic constipati on Disease Active 18 00:00: 00 [facility] IUD strings lost IUD strings lost Disease Active 2016-03 0-20 00:00: 00 [facility] Presence of intrauteri ne contracept boby device Presence of intrauteri ne contracept boby device Disease Active 2015-03-16 00:00: 00 [facility] Dysmenorrh ea Dysmenorrh ea Disease Active 07-12 00:00: 00 [facility] BV (bacterial vaginosis) BV (bacterial vaginosis) Disease Active 07-12 00:00: 00 [facility] Vaginal yeast infection Vaginal yeast infection Disease Active 07-12 00:00: 00 [facility] Encounter for well woman exam with routine gynecologi cally exam Encounter for well woman exam with routine gynecologi cally exam Disease Active 07-12 00:00: 00 [facility] [id number] Anxiety Problem Active [facility] [id number] Tinnitus, left ear Problem Active [facility] [id number] Chronic Idiopathic Constipati on Problem Active [facility] Adult attention deficit disorder Adult attention deficit disorder Problem Active [facility] Insomnia Insomnia Problem Active [facility] [id number] Adult BMI 30.0-30.9 kg/sq m Problem Active [facility] [id number] Decreased hearing of left ear Problem Active [facility] [id number] FRANK (generaliz ed anxiety disorder) Problem Active [facility] Allergies, Adverse Reactions, Alerts Allergy Name Allergy Type Status Severity Reaction(s) Onset Date Inactive Date Treating Clinician Comments Source NO KNOWN ALLERGIE S Drug Class Active [facility] Social History Social Habit Start Date Stop Date Quantity Comments Source History of Tobacco Use [facility] Sex Assigned At [facility] History SDOH Alcohol Frequency [facility] History SDOH Alcohol Std Drinks [facility] History SDOH Alcohol Binge [facility] Gender identity [facility] Sexual orientation U [facility] Alcohol intake 2022-06-19 00:00:00 2022-06-19 00:00:00 0 /d [facility] Exposure to SARS-CoV-2 (event) 2021-12-04 00:00:00 2021-12-14 16:19:00 Not sure [facility] Tobacco use and exposure 2021-12-14 00:00:00 2021-12-14 00:00:00 Smokeless tobacco non-user [facility] History of Social function 2021-06-23 00:00:00 2021-06-23 00:00:00 [facility] Alcohol Comment 2012-06-27 00:00:00 2012-06-27 00:00:00 socially [facility] Smoking Status Start Date Stop Date Source Never smoked tobacco [facility] Medications Ordered Medication Name Filled Medication Name Start Date Stop Date Current Medication? Ordering Clinician Indication Dosage Frequency Signature (SIG) Comments Components Source sulfamethox azole-trime thoprim 800-160 mg per tablet 10-15 00:00: 00 10-19 04:59 :00 No [id number] 1{tbl} Take 1 tablet by mouth in the morning and 1 tablet in the evening. Do all this for 3 days. [facility] VYVANSE 70 mg capsule 09-07 00:00: 00 Yes TAKE ONE (1) CAPSULE(S) BY MOUTH ONCE A DAY IN THE MORNING. [facility] zolpidem 10 mg tablet 09-05 00:00: 00 Yes TAKE ONE (1) TABLET(S) BY MOUTH ONCE A DAY AT BEDTIME NEEDED. [facility] TRAZODONE HCL (TRAZODONE ORAL) 2021-03 16:38: 31 Yes Take by mouth. [facility] norgestimat e-ethinyl estradioL 0.18/0.215/ 0.25 mg-25 mcg tablet 2021-03 00:00: 00 Yes [id number] 1{tbl} Take 1 tablet by mouth in the morning. [facility] Amphetamine -Dextroamph etamine 30 MG Amphetamine -Dextroamph etamine 30 MG 10-07 00:00: 00 No 1{table t} BID Amphetamin e-Dextroam phetamine 30 MG Sertraline HCl 100 MG Sertraline HCl 100 MG 09-07 00:00: 00 No 1{table t} QD Sertraline HCl 100 MG SERTraline 100 mg tablet 09-07 00:00: 00 Yes 1 tablet [facility] dextroamphe tamine-amph etamine 30 mg tablet 09-07 00:00: 00 12-14 00:00 :00 No 1 tablet [facility] Amphetamine -Dextroamph etamine 30 MG Amphetamine -Dextroamph etamine 30 MG 6 00:00: 00 No 1{table t} BID Amphetamin e-Dextroam phetamine 30 MG levonorgest reL (KYLEENA) IUD 1 Device 07-25 20:45: 00 07-25 19:44 :00 No [id number] 1{devic e} [facility] Amphetamine -Dextroamph etamine 30 MG Amphetamine -Dextroamph etamine 30 MG 07-13 00:00: 00 No 1{table t} BID Amphetamin e-Dextroam phetamine 30 MG TRINTELLIX 10 mg Tab 07-13 00:00: 00 Yes [facility] TRAZODONE HCL (TRAZODONE ORAL) 06-23 13:18: 26 Yes Take by mouth. [facility] Amphetamine -Dextroamph etamine 30 MG Amphetamine -Dextroamph etamine 30 MG 06-23 00:00: 00 No 1{table t} BID Amphetamin e-Dextroam phetamine 30 MG Adderall 30 MG Adderall 30 MG 06-23 00:00: 00 No 1{table t} BID Adderall 30 MG levonorgest rel-ethinyl estradiol 0.1-20 mg-mcg per tablet 06-23 00:00: 00 07-25 00:00 :00 No [id number] 1{tbl} Take 1 tablet by mouth daily. [facility] Adderall 30 MG Adderall 30 MG - 00:00: 00 No 1{table t} BID Adderall 30 MG Amphetamine -Dextroamph etamine 30 MG Amphetamine -Dextroamph etamine 30 MG - 00:00: 00 No 1{table t} BID Amphetamin e-Dextroam phetamine 30 MG MYDAYIS 25 mg CT24 3-10 00:00: 00 07-25 00:00 :00 No 1{capsu le} Take 1 capsule by mouth every morning. [facility] Amphetamine -Dextroamph etamine 30 MG Amphetamine -Dextroamph etamine 30 MG 1-25 00:00: 00 No 1{table t} BID dextroamphe tamine-amph etamine 30 mg tablet 03-28 00:00: 00 Yes 30mg Take 1 tablet by mouth in the morning and 1 tablet in the evening. [facility] Vyvanse 50 MG Vyvanse 50 MG 2020-03 00:00: 00 No 1{capsu le_in_t he_morn ing} QD Vyvanse 50 MG Moxifloxaci n HCl 0.5 % Moxifloxaci n HCl 0.5 % 2020-03 018 00:00: 00 12-26 00:00 :00 No 1{drop_ into_af fected_ eye} TID Moxifloxac in HCl 0.5 % Vyvanse 40 MG Vyvanse 40 MG 2020-03 0-04 00:00: 00 No 1{capsu le_in_t he_morn ing} QD Vyvanse 40 MG Venlafaxine HCl ER 75 MG Venlafaxine HCl ER 75 MG 9 00:00: 00 No 1{capsu le_with _food} QD Venlafaxin e HCl ER 75 MG Adderall 30 MG Adderall 30 MG 9- 00:00: 00 No 1{table t} BID Adderall 30 MG Adderall 20 MG Adderall 20 MG 6-14 00:00: 00 No 1{table t} BID Adderall 20 MG Lactulose 10 GM/15ML Lactulose 10 GM/15ML 03-11 00:00: 00 No BID Lactulose 10 GM/15ML Lactulose 10 GM/15ML Lactulose 10 GM/15ML 03-11 00:00: 00 No BID Lactulose 10 GM/15ML Lactulose 10 GM/15ML Lactulose 10 GM/15ML 03-11 00:00: 00 No BID Lactulose 10 GM/15ML Adderall Adderall 09-12 00:00: 00 Yes Guadalupe Quintero 1 tablet [facility] Vitamin B12 (Cyanocobal hernandez) Vitamin B12 (Cyanocobal hernandez) 09-12 00:00: 00 No 1000ug [facility] Zolpidem Tartrate Zolpidem Tartrate 2019-0 6-13 00:00: 00 Yes Guadalupe Quintero 1 tablet at bedtime [facility] traZODone HCl 150 MG traZODone HCl 150 MG No traZODone HCl 150 MG Xulane 150-35 MCG/24HR Xulane 150-35 MCG/24HR No Xulane 150-35 MCG/24HR Adderall 15 MG Adderall 15 MG No 1{table t} BID Adderall 15 MG albuterol sulfate HFA 90 mcg/actuati on aerosol inhaler Inhale 2 puffs every 4-6 hours by inhalation route as needed for 30 days. albuterol sulfate HFA 90 mcg/actuati on aerosol inhaler Inhale 2 puffs every 4-6 hours by inhalation route as needed for 30 days. No 2puff(s ) Q5H albuterol sulfate HFA 90 mcg/actuat ion aerosol inhaler Inhale 2 puffs every 4-6 hours by inhalation route as needed for 30 days. [facility] traZODone HCl 150 MG traZODone HCl 150 MG No 1{table t_at_be dtime} QD traZODone HCl 150 MG Venlafaxine HCl ER 75 MG Venlafaxine HCl ER 75 MG No 1{capsu le_with _food} QD Venlafaxin e HCl ER 75 MG Adderall 15 MG Adderall 15 MG No 1{table t} BID Adderall 15 MG alprazolam 1 mg tablet TAKE 1 TABLET BY MOUTH EVERY DAY. alprazolam 1 mg tablet TAKE 1 TABLET BY MOUTH EVERY DAY. No alprazolam 1 mg tablet TAKE 1 TABLET BY MOUTH EVERY DAY. [facility] Xulane 150-35 MCG/24HR Xulane 150-35 MCG/24HR No Xulane 150-35 MCG/24HR Adderall 15 MG Adderall 15 MG No 1{table t} BID Adderall 15 MG Amitriptyli ne HCl 50 MG Amitriptyli ne HCl 50 MG No 1{table t_at_be dtime} QD Amitriptyl ine HCl 50 MG etonogestre l 0.12 mg-ethinyl estradiol 0.015 mg/24 hr vaginal ring INSERT 1 RING VAGINALLY FOR 3 WEEKS THEN REMOVE FOR 1 WEEK etonogestre l 0.12 mg-ethinyl estradiol 0.015 mg/24 hr vaginal ring INSERT 1 RING VAGINALLY FOR 3 WEEKS THEN REMOVE FOR 1 WEEK No etonogestr el 0.12 mg-ethinyl estradiol 0.015 mg/24 hr vaginal ring INSERT 1 RING VAGINALLY FOR 3 WEEKS THEN REMOVE FOR 1 WEEK [facility] Adderall 20 MG Adderall 20 MG No 1{table t} BID Adderall 20 MG Amitriptyli ne HCl 50 MG Amitriptyli ne HCl 50 MG No 1{table t_at_be dtime} QD Amitriptyl ine HCl 50 MG prednisone 5 mg tablets in a dose pack Take 1 dose pk by oral route as directed for 6 days. prednisone 5 mg tablets in a dose pack Take 1 dose pk by oral route as directed for 6 days. No 1dose pk(s) prednisone 5 mg tablets in a dose pack Take 1 dose pk by oral route as directed for 6 days. [facility] trazodone 150 mg tablet TAKE 1 TABLET BY MOUTH EVERY DAY AT BEDTIME trazodone 150 mg tablet TAKE 1 TABLET BY MOUTH EVERY DAY AT BEDTIME No trazodone 150 mg tablet TAKE 1 TABLET BY MOUTH EVERY DAY AT BEDTIME [facility] Zithromax Z-Oj 250 mg tablet TAKE 2 TABLETS (500 MG) BY ORAL ROUTE ONCE DAILY FOR 1 DAY THEN 1 TABLET (250 MG) BY ORAL ROUTE ONCE DAILY FOR 4 DAYS Zithromax Z-Oj 250 mg tablet TAKE 2 TABLETS (500 MG) BY ORAL ROUTE ONCE DAILY FOR 1 DAY THEN 1 TABLET (250 MG) BY ORAL ROUTE ONCE DAILY FOR 4 DAYS No Zithromax Z-Oj 250 mg tablet TAKE 2 TABLETS (500 MG) BY ORAL ROUTE ONCE DAILY FOR 1 DAY THEN 1 TABLET (250 MG) BY ORAL ROUTE ONCE DAILY FOR 4 DAYS [facility] Immunizations Ordered Immunization Name Filled Immunization Name Date Status Comments Source Influenza Virus Vaccine 2021-04-04 00:00:00 Completed [facility] Influenza Virus Vaccine 2021-04-04 00:00:00 Completed [facility] Influenza Virus Vaccine 2021-04-04 00:00:00 Completed [facility] Influenza Virus Vaccine 2021-04-04 00:00:00 Completed [facility] Influenza Virus Vaccine 2021-04-04 00:00:00 Completed [facility] Influenza Virus Vaccine 2021-04-04 00:00:00 Completed [facility] Influenza Virus Vaccine 2021-04-04 00:00:00 Completed [facility] Influenza Virus Vaccine 2021-04-04 00:00:00 Completed [facility] Influenza Virus Vaccine 2021-04-04 00:00:00 Completed [facility] Influenza Virus Vaccine 2021-04-04 00:00:00 Completed [facility] Influenza Virus Vaccine 2021-04-04 00:00:00 Completed [facility] Influenza Virus Vaccine 2021-04-04 00:00:00 Completed [facility] Afluria single dose Afluria single dose 2020-02-16 15:38:00 Completed [facility] Afluria single dose Afluria single dose 2020-02-16 15:38:00 Completed [facility] Afluria single dose Afluria single dose 2020-02-16 15:38:00 Completed [facility] Afluria single dose Afluria single dose 2020-02-16 15:38:00 Completed [facility] Afluria single dose Afluria single dose 2020-02-16 15:38:00 Completed [facility] Afluria single dose Afluria single dose 2020-02-16 15:38:00 Completed [facility] Afluria single dose Afluria single dose 2020-02-16 15:38:00 Completed [facility] Afluria single dose Afluria single dose 2020-02-16 15:38:00 Completed [facility] Afluria single dose Afluria single dose 2020-02-16 15:38:00 Completed [facility] Afluria single dose Afluria single dose 2020-02-16 15:38:00 Completed [facility] Afluria single dose Afluria single dose 2020-02-16 15:38:00 Completed [facility] Afluria single dose Afluria single dose 2020-02-16 15:38:00 Completed [facility] Afluria single dose Afluria single dose 2020-02-16 15:38:00 Completed [facility] Afluria single dose Afluria single dose 2020-02-16 15:38:00 Completed [facility] Influenza Virus Vaccine Quad IM 3+ YRS 2020-02-16 00:00:00 Completed [facility] Influenza Virus Vaccine Quad IM 3+ YRS 2020-02-16 00:00:00 Completed [facility] Influenza Virus Vaccine Quad IM 3+ YRS 2020-02-16 00:00:00 Completed [facility] Influenza Virus Vaccine Quad IM 3+ YRS 2020-02-16 00:00:00 Completed [facility] Influenza Virus Vaccine Quad IM 3+ YRS 2020-02-16 00:00:00 Completed [facility] Influenza Virus Vaccine Quad IM 3+ YRS 2020-02-16 00:00:00 Completed [facility] Influenza Virus Vaccine Quad IM 3+ YRS 2020-02-16 00:00:00 Completed [facility] Influenza Virus Vaccine Quad IM 3+ YRS 2020-02-16 00:00:00 Completed [facility] Influenza Virus Vaccine Quad IM 3+ YRS 2020-02-16 00:00:00 Completed [facility] Influenza Virus Vaccine Quad IM 3+ YRS 2020-02-16 00:00:00 Completed [facility] Influenza Virus Vaccine Quad IM 3+ YRS 2020-02-16 00:00:00 Completed [facility] Influenza Virus Vaccine Quad IM 3+ YRS 2020-02-16 00:00:00 Completed [facility] Vitamin B12 (Cyanocobalamin) Vitamin B12 (Cyanocobalamin) 2018-09-12 11:41:00 Completed [facility] Vitamin B12 (Cyanocobalamin) Vitamin B12 (Cyanocobalamin) 2018-09-12 11:41:00 Completed [facility] Vitamin B12 (Cyanocobalamin) Vitamin B12 (Cyanocobalamin) 2018-09-12 11:41:00 Completed [facility] Vitamin B12 (Cyanocobalamin) Vitamin B12 (Cyanocobalamin) 2018-09-12 11:41:00 Completed [facility] Vitamin B12 (Cyanocobalamin) Vitamin B12 (Cyanocobalamin) 2018-09-12 11:41:00 Completed [facility] Vitamin B12 (Cyanocobalamin) Vitamin B12 (Cyanocobalamin) 2018-09-12 11:41:00 Completed [facility] Vitamin B12 (Cyanocobalamin) Vitamin B12 (Cyanocobalamin) 2018-09-12 11:41:00 Completed [facility] Afluria Afluria 2017-12-09 09:50:00 Completed [facility] Afluria Afluria 2017-12-09 09:50:00 Completed [facility] Afluria Afluria 2017-12-09 09:50:00 Completed [facility] Afluria Afluria 2017-12-09 09:50:00 Completed [facility] Afluria Afluria 2017-12-09 09:50:00 Completed [facility] Afluria Afluria 2017-12-09 09:50:00 Completed [facility] Afluria Afluria 2017-12-09 09:50:00 Completed [facility] Afluria Afluria 2017-12-09 09:50:00 Completed [facility] Afluria Afluria 2017-12-09 09:50:00 Completed [facility] Afluria Afluria 2017-12-09 09:50:00 Completed [facility] Afluria Afluria 2017-12-09 09:50:00 Completed [facility] Afluria Afluria 2017-12-09 09:50:00 Completed [facility] Afluria Afluria 2017-12-09 09:50:00 Completed [facility] Afluria Afluria 2017-12-09 09:50:00 Completed [facility] Influenza Virus Vaccine (3+ yrs) 2017-12-09 00:00:00 Completed [facility] Influenza Virus Vaccine (3+ yrs) 2017-12-09 00:00:00 Completed [facility] Influenza Virus Vaccine (3+ yrs) 2017-12-09 00:00:00 Completed [facility] Influenza Virus Vaccine (3+ yrs) 2017-12-09 00:00:00 Completed [facility] Influenza Virus Vaccine (3+ yrs) 2017-12-09 00:00:00 Completed [facility] Influenza Virus Vaccine (3+ yrs) 2017-12-09 00:00:00 Completed [facility] Influenza Virus Vaccine (3+ yrs) 2017-12-09 00:00:00 Completed [facility] Influenza Virus Vaccine (3+ yrs) 2017-12-09 00:00:00 Completed [facility] Influenza Virus Vaccine (3+ yrs) 2017-12-09 00:00:00 Completed [facility] Influenza Virus Vaccine (3+ yrs) 2017-12-09 00:00:00 Completed [facility] Influenza Virus Vaccine (3+ yrs) 2017-12-09 00:00:00 Completed [facility] Influenza Virus Vaccine (3+ yrs) 2017-12-09 00:00:00 Completed [facility] HPV9 2017-01-04 00:00:00 Completed [facility] HPV9 2017-01-04 00:00:00 Completed [facility] HPV9 2017-01-04 00:00:00 Completed [facility] HPV9 2017-01-04 00:00:00 Completed [facility] HPV9 2017-01-04 00:00:00 Completed [facility] HPV9 2017-01-04 00:00:00 Completed [facility] HPV9 2017-01-04 00:00:00 Completed [facility] HPV9 2017-01-04 00:00:00 Completed [facility] HPV9 2017-01-04 00:00:00 Completed [facility] HPV9 2017-01-04 00:00:00 Completed [facility] HPV9 2017-01-04 00:00:00 Completed [facility] HPV9 2017-01-04 00:00:00 Completed [facility] TDAP 2015-07-13 00:00:00 Completed [facility] HPV9 2015-07-13 00:00:00 Completed [facility] TDAP 2015-07-13 00:00:00 Completed [facility] HPV9 2015-07-13 00:00:00 Completed [facility] TDAP 2015-07-13 00:00:00 Completed [facility] HPV9 2015-07-13 00:00:00 Completed [facility] TDAP 2015-07-13 00:00:00 Completed [facility] HPV9 2015-07-13 00:00:00 Completed [facility] TDAP 2015-07-13 00:00:00 Completed [facility] HPV9 2015-07-13 00:00:00 Completed [facility] TDAP 2015-07-13 00:00:00 Completed [facility] HPV9 2015-07-13 00:00:00 Completed [facility] TDAP 2015-07-13 00:00:00 Completed [facility] HPV9 2015-07-13 00:00:00 Completed [facility] TDAP 2015-07-13 00:00:00 Completed [facility] HPV9 2015-07-13 00:00:00 Completed [facility] TDAP 2015-07-13 00:00:00 Completed [facility] HPV9 2015-07-13 00:00:00 Completed [facility] TDAP 2015-07-13 00:00:00 Completed [facility] HPV9 2015-07-13 00:00:00 Completed [facility] TDAP 2015-07-13 00:00:00 Completed [facility] HPV9 2015-07-13 00:00:00 Completed [facility] TDAP 2015-07-13 00:00:00 Completed [facility] HPV9 2015-07-13 00:00:00 Completed [facility] Rubella 2011-02-01 00:00:00 Completed [facility] Rubella 2011-02-01 00:00:00 Completed [facility] Rubella 2011-02-01 00:00:00 Completed [facility] Rubella 2011-02-01 00:00:00 Completed [facility] Rubella 2011-02-01 00:00:00 Completed [facility] Rubella 2011-02-01 00:00:00 Completed [facility] Rubella 2011-02-01 00:00:00 Completed [facility] Rubella 2011-02-01 00:00:00 Completed [facility] Rubella 2011-02-01 00:00:00 Completed [facility] Rubella 2011-02-01 00:00:00 Completed [facility] Rubella 2011-02-01 00:00:00 Completed [facility] Rubella 2011-02-01 00:00:00 Completed [facility] Td 2004-03-04 00:00:00 Completed [facility] Td 2004-03-04 00:00:00 Completed [facility] Td 2004-03-04 00:00:00 Completed [facility] Td 2004-03-04 00:00:00 Completed [facility] Td 2004-03-04 00:00:00 Completed [facility] TD, NOS 2004-03-04 00:00:00 Completed [facility] TD, NOS 2004-03-04 00:00:00 Completed [facility] TD, NOS 2004-03-04 00:00:00 Completed [facility] TD, NOS 2004-03-04 00:00:00 Completed [facility] TD, NOS 2004-03-04 00:00:00 Completed [facility] TD, NOS 2004-03-04 00:00:00 Completed [facility] TD, NOS 2004-03-04 00:00:00 Completed [facility] Rubella Unknown Completed [facility] TD, NOS Unknown Completed [facility] TDAP Unknown Completed [facility] HPV9 Unknown Completed [facility] HPV9 Unknown Completed [facility] Influenza Virus Vaccine (3+ yrs) Unknown Completed [facility] Influenza Virus Vaccine Quad IM 3+ YRS Unknown Completed [facility] Influenza Virus Vaccine Unknown Completed [facility] Rubella Unknown Completed [facility] TD, NOS Unknown Completed [facility] TDAP Unknown Completed [facility] HPV9 Unknown Completed [facility] HPV9 Unknown Completed [facility] Influenza Virus Vaccine (3+ yrs) Unknown Completed [facility] Influenza Virus Vaccine Quad IM 3+ YRS Unknown Completed [facility] Influenza Virus Vaccine Unknown Completed [facility] Rubella Unknown Completed [facility] TD, NOS Unknown Completed [facility] TDAP Unknown Completed [facility] HPV9 Unknown Completed [facility] HPV9 Unknown Completed [facility] Influenza Virus Vaccine (3+ yrs) Unknown Completed [facility] Influenza Virus Vaccine Quad IM 3+ YRS Unknown Completed [facility] Influenza Virus Vaccine Unknown Completed [facility] Rubella Unknown Completed [facility] TD, NOS Unknown Completed [facility] TDAP Unknown Completed [facility] HPV9 Unknown Completed [facility] HPV9 Unknown Completed [facility] Influenza Virus Vaccine (3+ yrs) Unknown Completed [facility] Influenza Virus Vaccine Quad IM 3+ YRS Unknown Completed [facility] Influenza Virus Vaccine Unknown Completed [facility] Vital Signs Vital Name Observation Time Observation Value Comments S ource Systolic blood pressure 2022-10-10 16:07:00 122 mm[Hg] [facility] Diastolic blood pressure 2022-10-10 16:07:00 78 mm[Hg] [facility] Heart rate 2022-10-10 16:07:00 98 /min [facility] Body temperature 2022-10-10 16:07:00 37.06 [place] [facility] Respiratory rate 2022-10-10 16:07:00 18 /min [facility] Body height 2022-10-10 16:07:00 157.5 cm [facility] Body weight 2022-10-10 16:07:00 76.204 kg [facility] BMI 2022-10-10 16:07:00 30.73 kg/m2 [facility] Oxygen saturation in Arterial blood by Pulse oximetry 2022-10-10 16:07:00 98 /min [facility] Systolic blood pressure 2022-06-19 16:46:00 116 mm[Hg] [facility] Diastolic blood pressure 2022-06-19 16:46:00 77 mm[Hg] [facility] Heart rate 2022-06-19 16:46:00 84 /min [facility] Respiratory rate 2022-06-19 16:46:00 18 /min [facility] Body height 2022-06-19 16:46:00 157.5 cm [facility] Body weight 2022-06-19 16:46:00 76.658 kg [facility] BMI 2022-06-19 16:46:00 30.91 kg/m2 [facility] Systolic blood pressure 2021-12-14 21:36:00 112 mm[Hg] [facility] Diastolic blood pressure 2021-12-14 21:36:00 87 mm[Hg] [facility] Heart rate 2021-12-14 21:36:00 98 /min [facility] Body temperature 2021-12-14 21:36:00 36.94 [place] [facility] Respiratory rate 2021-12-14 21:36:00 16 /min [facility] Body height 2021-12-14 21:36:00 160 cm [facility] Body weight 2021-12-14 21:36:00 78.064 kg [facility] BMI 2021-12-14 21:36:00 30.49 kg/m2 [facility] Oxygen saturation in Arterial blood by Pulse oximetry 2021-12-14 21:36:00 98 /min [facility] height 2021-09-07 13:00:00 64 [in_i] [facility] weight 2021-09-07 13:00:00 175 [lb_av] Comm on [facility] temperature 2021-09-07 13:00:00 98 [degF] Comm on [facility] bmi 2021-09-07 13:00:00 30.04 kg/m2 [facility] blood pressure systolic 2021-09-07 13:00:00 116 mm[Hg] Common [facility] blood pressure diastolic 2021-09-07 13:00:00 76 mm[Hg] [facility] Systolic blood pressure 2021-07-25 18:49:00 119 mm[Hg] [facility] Diastolic blood pressure 2021-07-25 18:49:00 81 mm[Hg] [facility] Heart rate 2021-07-25 18:49:00 93 /min [facility] Body temperature 2021-07-25 18:49:00 37.06 [place]ver[place] [facility] Respiratory rate 2021-07-25 18:49:00 16 /min [facility] Body height 2021-07-25 18:49:00 160 cm [facility] Body weight 2021-07-25 18:49:00 77.111 kg [facility] BMI 2021-07-25 18:49:00 30.11 kg/m2 [facility] Oxygen saturation in Arterial blood by Pulse oximetry 2021-07-25 18:49:00 99 /min [facility] height 2021-07-13 11:20:00 64 [in_i] [facility] n [facility] weight 2021-07-13 11:20:00 173.6 [lb_av] Co mmon [facility] temperature 2021-07-13 11:20:00 98.2 [degF] Com mon [facility] bmi 2021-07-13 11:20:00 29.8 kg/m2 [facility] oximetry 2021-07-13 11:20:00 97 % [facility] respiratory rate 2021-07-13 11:20:00 18 /min Common [facility] blood pressure systolic 2021-07-13 11:20:00 108 mm[Hg] Common [facility] blood pressure diastolic 2021-07-13 11:20:00 62 mm[Hg] Common [facility] height 2021-03-28 08:00:00 64 [in_i] Commo n [facility] weight 2021-03-28 08:00:00 175 [lb_av] Comm on [facility] temperature 2021-03-28 08:00:00 97 [degF] Comm on [facility] bmi 2021-03-28 08:00:00 30.04 kg/m2 Comm on [facility] blood pressure systolic 2021-03-28 08:00:00 130 mm[Hg] [facility] blood pressure diastolic 2021-03-28 08:00:00 72 mm[Hg] Common [facility] height 2021-01-03 11:10:00 64 [in_i] Commo n [facility] weight 2021-01-03 11:10:00 175 [lb_av] Comm on [facility] temperature 2021-01-03 11:10:00 98 [degF] Comm on [facility] bmi 2021-01-03 11:10:00 30.04 kg/m2 Comm on [facility] blood pressure systolic 2021-01-03 11:10:00 132 mm[Hg] Common [facility] blood pressure diastolic 2021-01-03 11:10:00 70 mm[Hg] Common [facility] height 2020-12-19 13:00:00 64 [in_i] Commo n [facility] weight 2020-12-19 13:00:00 175.4 [lb_av] Co [facility] bmi 2020-12-19 13:00:00 30.1 kg/m2 Commo [facility] height 2020-12-05 10:20:00 64 [in_i] Commo n [facility] weight 2020-12-05 10:20:00 175.4 [lb_av] Co [facility] temperature 2020-12-05 10:20:00 97.4 [degF] Com mon [facility] bmi 2020-12-05 10:20:00 30.1 kg/m2 Commo [facility] oximetry 2020-12-05 10:20:00 100 % Commo [facility] respiratory rate 2020-12-05 10:20:00 18 /min [facility] blood pressure systolic 2020-12-05 10:20:00 135 mm[Hg] [facility] blood pressure diastolic 2020-12-05 10:20:00 87 mm[Hg] [facility] height 2020-11-02 08:10:00 64 [in_i] Commo n [facility] weight 2020-11-02 08:10:00 176.3 [lb_av] Co mmon [facility] temperature 2020-11-02 08:10:00 98.1 [degF] Com mon [facility] bmi 2020-11-02 08:10:00 30.26 kg/m2 Comm on [facility] oximetry 2020-11-02 08:10:00 98 % Commo [facility] respiratory rate 2020-11-02 08:10:00 17 /min [facility] blood pressure systolic 2020-11-02 08:10:00 125 mm[Hg] [facility] blood pressure diastolic 2020-11-02 08:10:00 80 mm[Hg] [facility] BP Diastolic 2020-04-25 00:00:00 81 mm[Hg] [facility] BP Systolic 2020-04-25 00:00:00 123 mm[Hg] [facility] Body Weight 2020-04-25 00:00:00 2992 [oz_av] [facility] Procedures Procedure Date / Time Performed Performing Clinicia n Source URINE CULTURE 2022-10-10 17:15:00 Norma Gallegos [facility] ASSIGNMENT OF BENEFITS 2022-10-10 15:57:00 Docto r Unassigned, [place] [facility] POCT URINALYSIS AUTO 2022-10-10 15:50:00 Keisha Gallegos [facility] PATIENT FINANCIAL POLICY 2022-06-19 16:26:30 Doctor Unassigned, [place] [facility] POCT TEST 2021-07-25 19:22:00 Fish, Anna [facility] DISCLOSURE AND CONSENT, MEDICAL AND SURGICAL PROCEDURES 2021-07-25 05:01:00 Doctor Unassigned, [place] [facility] Plan of Care Planned Activity Planned Date Details Comments Source Diagnostic Test Pending 2020-04-25 00:00:00 rapid SARS CoV 2 Ag, QL IA, respiratory specimen [code = rapid SARS CoV 2 Ag, QL IA, respiratory specimen] [facility] Instructions [facility] Encounters Start Date/Time End Date/Time Encounter Type Admission Type Attending Clinicians Care Facility Care Department Encounter ID Source 2021-07-20 16:13:01 Outpatient Quintero, Guadalupe [facility] ST[facility] [id number] [facility] 2021-07-13 08:27:01 Outpatient Quintero, Guadalupe ST[facility] STLMLC [id number] [facility] 2021-05-11 10:57:01 Outpatient Quintero, Guadalupe ST[facility] STLMLC [id number] [facility] 2021-03-29 14:36:17 Outpatient Quintero, Guadalupe [facility] STLMLC [id number] [facility] 2021-03-29 14:07:40 Outpatient Quintero, Guadalupe ST[facility] STLMLC [id number] [facility] 2021-03-29 14:01:49 Outpatient Quintero, Guadalupe ST[facility] STLMLC [id number] [facility] 2021-03-29 13:55:48 Outpatient Quintero, Guadalupe STLC STLMLC [id number] [facility] 2021-03-29 13:55:20 Outpatient Quintero, Guadalupe ST[facility] STLMLC [id number] [facility] 2021-03-29 13:40:15 Outpatient Quintero, Guadalupe ST[facility] STLMLC [id number] [facility] 2021-03-29 13:39:55 Outpatient Quintero, Guadalupe STLMLC STLMLC [id number] [facility] 2021-03-29 13:13:36 Outpatient Quintero, Guadalupe STLMLC STLMLC [id number] [facility] 2021-03-29 13:12:43 Outpatient Quintero, Guadalupe STLMLC STLMLC [id number] [facility] 2021-03-29 13:05:56 Outpatient Quintero, Guadalupe STLMLC STLMLC [id number] [facility] 2021-03-29 12:47:28 Outpatient Quintero, Guadalupe STLMLC STLMLC [id number] [facility] 2021-03-29 12:39:36 Outpatient Quintero, Guadalupe STLMLC STLMLC [id number] [facility] 2021-03-29 12:39:04 Outpatient Quintero, Guadalupe STLMLC STLMLC [id number] [facility] 2021-03-29 12:20:18 Outpatient Quintero, Guadalupe STLMLC STLMLC [id number] [facility] 2021-03-29 12:15:07 Outpatient Quintero, Guadalupe STLMLC STLMLC [id number] [facility] 2021-03-29 12:13:43 Outpatient Quintero, Guadalupe STLMLC STLMLC [id number] [facility] 2021-03-29 12:09:42 Outpatient Quintero, Guadalupe STLMLC STLMLC [id number] [facility] 2021-03-29 11:59:40 Outpatient Quintero, Guadalupe STLMLC STLMLC [id number] [facility] 2023-04-12 11:30:00 2023-04-12 11:30:00 Outpatient Yu GALLEGOS, NORMA REICH [facility] [id number] [facility] 2023-02-01 09:00:00 2023-02-01 09:00:00 Outpatient R MAXWELL PICHARDO [facility] [id number] [facility] 2023-01-11 14:30:00 2023-01-11 14:30:00 Outpatient R NORMA GALLEGOS ELISHA [facility] [id number] [facility] 2022-10-16 07:15:00 2022-10-16 07:15:00 Outpatient R CALIN CHACON [facility] [id number] [facility] 2022-10-15 00:00:00 2022-10-15 00:00:00 Patient Secure Msg Doctor Unassigned, [place] [facility] 1.840.114 350.1.13.10 4.2.7.2.686 [id number] [facility] 2022-10-10 11:00:00 2022-10-10 12:31:15 Outpatient [facility] [id number] [facility] 2022-10-10 11:00:00 2022-10-10 12:31:15 Office Visit Norma Gallegos [facility] 1.84.114 350.1.13.10 4.2.7.2.686 [id number] [facility] 2022-10-10 00:00:00 2022-10-10 00:00:00 Orders Only Doctor Unassigned, [place] [facility] 1.840.114 350.1.13.10 4.2.7.2.686 [id number] [facility] 2022-07-09 09:30:00 2022-07-09 09:30:00 Outpatient MIKE DE LUNA CHERYAL [facility] [id number] [facility] 2022-07-04 09:30:00 2022-07-04 09:30:00 Outpatient R NORMA GALLEGOS NORMA [facility] [id number] [facility] 2022-06-27 11:00:00 2022-06-27 11:00:00 Outpatient R MIKE BLOCK CHERYAL [facility] [id number] [facility] 2022-06-26 11:00:00 2022-06-26 11:00:00 Outpatient R MIKE BLOCK CHERYAL [facility] [id number] [facility] 2022-06-19 11:30:00 2022-06-19 13:31:36 Outpatient R MIKE BLOCK CHERYAL [facility] [id number] [facility] 2022-06-19 11:30:00 2022-06-19 12:00:00 Office Visit Mike Block [facility] 1..840.114 350.1.13.10 4.2.7.2.686 [id number] [facility] 2022-06-19 00:00:00 2022-06-19 00:00:00 Orders Only Doctor Unassigned, [place] [facility] 1..840.114 350.1.13.10 4.2.7.2.686 [id number] [facility] 2022-02-26 10:45:00 2022-02-26 10:45:00 Outpatient R UNKNOWN, ATTENDING [facility] [id number] [facility] 2021-12-22 00:00:00 2021-12-22 00:00:00 Patient Secure Msg Doctor Unassigned, [place] [facility] 1.840.114 350.1.13.10 4.2.7.2.686 [id number] [facility] 2021-12-14 16:00:00 2021-12-14 17:08:10 Outpatient R MIKE BLOCKER, CHERYAL [facility] [id number] [facility] 2021-12-14 16:00:00 2021-12-14 17:08:10 Office Visit Mike [facility] 1..840.114 350.1.13.10 4.2.7.2.686 [id number] [facility] 2021-12-14 16:30:00 2021-12-14 16:30:00 [facility] R [facility] [id number] [facility] 2021-11-30 08:30:00 2021-11-30 08:30:00 Outpatient R ANNA CALZADA [facility] [id number] [facility] 2021-09-27 00:00:00 2021-09-27 00:00:00 Outpatient LISTER_MELI GRAHAM [facility] [id number] [facility] 2021-09-07 00:00:00 2021-09-07 00:00:00 OFFICE VISIT ESTAB PT LEVEL 4 [facility] [id number] [facility] 2021-08-30 00:00:00 2021-08-30 00:00:00 (TEL) [facility] [id number] [facility] 2021-08-05 00:00:00 2021-08-05 00:00:00 Patient Secure Msg Doctor Unassigned, [place] [facility] 1..840.114 350.1.13.10 4.2.7.2.686 [id number] [facility] 2021-07-25 13:30:00 2021-07-25 14:37:07 Outpatient R ANNA CALZADA [facility] [id number] [facility] 2021-07-25 13:30:00 2021-07-25 14:37:07 Office Visit Anna Calzada [facility] 1.840.114 350.1.13.10 4.2.7.2.686 [id number] [facility] 2021-07-25 00:00:00 2021-07-25 00:00:00 Orders Only Doctor Unassigned, [place] [facility] 1.84.114 350.1.13.10 4.2.7.2.686 [id number] [facility] 2021-07-17 10:15:00 2021-07-17 10:15:00 Outpatient R ANNA CALZADA [facility] [id number] [facility] 2021-07-13 00:00:00 2021-07-13 00:00:00 OFFICE VISIT ESTAB PT LEVEL 4 [facility] [id number] [facility] 2021-06-30 10:00:00 2021-06-30 10:15:00 Commercial Account Manager Visit Lab, Sanjay - Db [facility] 1..840.114 350.1.13.10 4.2.7.2.686 [id number] [facility] 2021-06-30 10:00:00 2021-06-30 10:00:00 Outpatient R ANNA CALZADA [facility] [id number] [facility] 2021-06-30 08:45:00 2021-06-30 08:45:00 Outpatient R [facility] [id number] [facility] 2021-06-24 00:00:00 2021-06-24 00:00:00 Refill Zheng [facility] 1..840.114 350.1.13.10 4.2.7.2.686 [id number] [facility] 2021-06-23 13:00:00 2021-06-23 13:56:11 Office Visit Anna Calzada [facility] 1.2.840.114 350.1.13.10 4.2.7.2.686 [id number] [facility] 2021-06-23 13:00:00 2021-06-23 13:56:11 Outpatient R ANNA CALZADA [facility] [id number] [facility] 2021-06-23 13:00:00 2021-06-23 13:00:00 Outpatient ANNA MORRIS [facility] [id number] [facility] 2021-06-23 00:00:00 2021-06-23 00:00:00 Orders Only Doctor Unassigned, [place] [facility] 1..840.114 350.1.13.10 4.2.7.2.686 [id number] [facility] 2021-05-24 00:00:00 2021-05-24 00:00:00 (TEL) STLMLC STLMLC [id number] [facility] 2021-05-09 13:00:00 2021-05-09 13:00:00 Outpatient LUCIA MORGAN [facility] [id number] [facility] 2021-05-09 00:00:00 2021-05-09 00:00:00 (TEL) STLMLC STLMLC [id number] [facility] 2021-03-29 07:40:00 2021-03-29 07:40:[address] [facility] [id number] [facility] 2021-03-28 00:00:00 2021-03-28 00:00:00 OFFICE VISIT EST PT LEVEL 3 STLMLC STLMLC [id number] [facility] 2021-01-03 00:00:00 2021-01-03 00:00:00 OFFICE VISIT ESTAB PT LEVEL 4 STLMLC STLMLC [id number] [facility] 2020-12-19 00:00:00 2020-12-19 00:00:00 OFFICE VISIT EST PT LEVEL 3 STLMLC STLMLC [id number] [facility] 2020-12-19 00:00:00 2020-12-19 00:00:00 (TEL) STLMLC STLMLC [id number] [facility] 2020-12-05 00:00:00 2020-12-05 00:00:00 PREV VISIT EST AGE 18-39 STLMLC STLMLC [id number] [facility] 2020-11-02 00:00:00 2020-11-02 00:00:00 OFFICE VISIT EST PT LEVEL 3 STLMLC STLMLC [id number] [facility] 2020-10-31 00:00:00 2020-10-31 00:00:00 (TEL) STLMLC STLMLC [id number] [facility] 2020-10-31 00:00:00 2020-10-31 00:00:00 OFFICE VISIT ESTAB PT LEVEL 1 STLMLC STLMLC [id number] [facility] 2020-10-18 00:00:00 2020-10-18 00:00:00 (TEL) STLMLC STLMLC [id number] [facility] 2020-08-15 00:00:00 2020-08-15 00:00:00 Outpatient STLMLC STLMLC [id number] [facility] 2020-07-10 01:05:00 2020-07-10 01:05:00 Outpatient [facility] [id number] 2020-07-06 00:00:00 2020-07-06 00:00:00 Outpatient STLMLC STLMLC [id number] [facility] 2020-06-06 00:00:00 2020-06-06 00:00:00 Outpatient STLMLC STLMLC [id number] [facility] 2020-06-06 00:00:00 2020-06-06 00:00:00 Outpatient STLMLC STLMLC [id number] [facility] 2020-06-05 01:03:00 2020-06-05 01:03:00 Outpatient SCHAUBROECK _L [facility] [id number] 2020-05-24 00:00:00 2020-05-24 00:00:00 Patient Outreach Colten Escobar [facility] 840.114 350.1.13.10 4.2.7.2.686 [id number] [facility] 2020-05-01 01:03:00 2020-05-01 01:03:00 Outpatient SCHAUBROECK _L [facility] [id number] [address] [facility] 2020-04-25 04:16:00 2020-04-25 04:16:00 Outpatient [place] _L [facility] [id number] [address] [facility] 2020-04-25 00:00:00 2020-04-25 00:00:00 Kimber Restrepo , [facility]-: [address] [place] [address], [address] [address] , Ph. [facility] [id number] [facility] 2020-04-25 00:00:00 2020-04-25 00:00:00 Outpatient Kimber Powell [facility] [id number] 2020-03-26 17:03:18 2020-03-26 17:23:18 Laboratory Only Lab, Adc Fam Nilson Landrum [facility] Office Building One ..840.114 [id number] [facility] 2020-03-26 17:00:00 2020-03-26 17:00:00 Outpatient JANNET KEY [facility] [id number] [facility] 2020-03-22 00:00:00 2020-03-22 00:00:00 Outpatient STLMLC [facility] [id number] [facility] 2020-03-16 00:00:00 2020-03-16 00:00:00 Outpatient STLMLC [facility] [id number] [facility] 2020-03-02 00:00:00 2020-03-02 00:00:00 Outpatient STLMLC STL[facility]C [id number] [facility] 2020-02-23 00:00:00 2020-02-23 00:00:00 Outpatient STLMLC ST[facility]C [id number] [facility] 2020-02-22 00:00:00 2020-02-22 00:00:00 Outpatient STLMLC [facility] [id number] [facility] 2020-02-16 00:00:00 2020-02-16 00:00:00 Outpatient STLMLC STLMLC [id number] [facility] 2020-02-06 17:38:46 2020-02-06 17:53:46 Laboratory Only Lab, Ad[facility] [id number] [facility] 2020-02-06 17:30:00 2020-02-06 17:30:00 Outpatient ARIA RIVERO [facility] [id number] [facility] 2020-02-03 00:00:00 2020-02-03 00:00:00 Outpatient STLMLC STLMLC [id number] [facility] 2020-01-25 18:37:49 2020-01-25 18:46:35 Laboratory Only Lab, Ad[facility] 1.840.114 [id number] [id number] [facility] 2020-01-25 18:40:00 2020-01-25 18:40:00 Outpatient R JANNET LANDRUM [facility] [id number] [facility] 2020-01-04 00:00:00 2020-01-04 00:00:00 Outpatient STLMLC [facility]LMLC [id number] [facility] 2019-07-24 10:30:00 2019-07-24 10:30:00 Outpatient R AILIN SPENCER [facility] [id number] [facility] 2019-06-26 09:38:05 2019-06-26 10:31:40 Office Visit Ailin Spencer [facility] OPERATIONS/DISPATCH [place] [facility] [id number] [id number] [id number] [facility] 2019-06-26 09:30:00 2019-06-26 09:30:00 Outpatient R AILIN SPENCER [facility] [id number] [facility] 2019-06-26 00:00:00 2019-06-26 00:00:00 Orders Only Doctor Unassigned, [place] [facility] 1.840.114 [id number] [id number] [id number] [facility] 2019-06-18 00:00:00 2019-06-18 00:00:00 Telephone Ailin Spencer [facility] OPERATIONS/DISPATCH [place] [facility] [id number] [id number] [id number] [id number] [facility] 2018-09-12 11:15:00 2018-09-12 11:15:00 Outpatient Brazamy mendez [facility] [id number] [facility] 2018-08-14 11:15:00 2018-08-14 11:15:00 Outpatient [facility] [id number] [facility] 2018-05-19 10:30:00 2018-05-19 10:30:00 Outpatient [facility] Medicine [facility] [id number] [facility] 2018-03-18 08:00:00 2018-03-18 08:00:00 Outpatient [facility] [facility] Medicine [facility] [id number] [facility] 2018-02-21 11:35:00 2018-02-21 11:35:00 Outpatient [facility] [facility] Medicine [facility] [id number] [facility] 2018-02-13 13:13:00 2018-02-13 13:13:00 Outpatient [facility] [id number] [facility] 2018-02-13 10:15:00 2018-02-13 10:15:00 Outpatient [facility] Medicine [facility] [id number] [facility] Results Test Description Test Time Test Comments Results Result Co mments Source [facility], [id number] 15:50:00 * Test Item Value Reference Range Interpretation Comme nts POCT U SP GRAV (test code = 3255) 1.020 mg/dl 1.005-1.025 POCT PH U (test code = 3254) 7.0 mg/dl 5-8 POCT U LEUK EST (test code = 3263) negative Negative - Negative POCT U NIT (test code = 3262) negative Negative - Negative POCT U PROT (test code = 3259) trace Negative - Negative POCT U GLU (test code = 3256) negative Negative - Negative POCT U KETONE (test code = 3258) negative Negative - Negative POCT U UROBILI (test code = 3260) 1.0 mg/dl 0.2-1 POCT U BILI (test code = 3261) negative Negative - Negative POCT U BLD (test code = 3257) negative Negative - Negative POCT U COLOR (test code = 3266) yellow POCT U APPEAR (test code = 3267) clear DAMARI (test code = DAMARI) Per order PVR by bladder scan = ?17 ml. Results reported to provider. [facility] URINALYSIS, [id number] 15:50:00 * Test Item Value Reference Range Interpretation Comme nts POCT U SP GRAV (test code = 3255) 1.020 mg/dl 1.005-1.025 POCT PH U (test code = 3254) 7.0 mg/dl 5-8 POCT U LEUK EST (test code = 3263) negative Negative - Negative POCT U NIT (test code = 3262) negative Negative - Negative POCT U PROT (test code = 3259) trace Negative - Negative POCT U GLU (test code = 3256) negative Negative - Negative POCT U KETONE (test code = 3258) negative Negative - Negative POCT U UROBILI (test code = 3260) 1.0 mg/dl 0.2-1 POCT U BILI (test code = 3261) negative Negative - Negative POCT U BLD (test code = 3257) negative Negative - Negative POCT U COLOR (test code = 3266) yellow POCT U APPEAR (test code = 3267) clear DAMARI (test code = DAMARI) Per order PVR by bladder scan = ?17 ml. Results [facility] to provider. [facility], [id number] 15:50:00 * Test Item Value Reference Range Interpretation Comme nts POCT U SP GRAV (test code = 3255) 1.020 mg/dl 1.005-1.025 POCT PH U (test code = 3254) 7.0 mg/dl 5-8 POCT U LEUK EST (test code = 3263) negative Negative - Negative POCT U NIT (test code = 3262) negative Negative - Negative POCT U PROT (test code = 3259) trace Negative - Negative POCT U GLU (test code = 3256) negative Negative - Negative POCT U KETONE (test code = 3258) negative Negative - Negative POCT U UROBILI (test code = 3260) 1.0 mg/dl 0.2-1 POCT U BILI (test code = 3261) negative Negative - Negative POCT U BLD (test code = 3257) negative Negative - Negative POCT U COLOR (test code = 3266) yellow POCT U APPEAR (test code = 3267) clear DMAARI (test code = DAMARI) Per order PVR by bladder scan = ?17 ml. Results reported to provider. [facility] [id number] 19:22:00* Test Item Value Reference Range Interpretation Comme nts POCT PREG (test code = 1605) Negative On board controls acceptable with C Line (test code = 3574) Yes POCT PREG LOT # (test code = 3575) POCT PREG TEST DATE ( test code = 3576) [facility] [id number] 19:22:00* Test Item Value Reference Range Interpretation Comme nts POCT PREG (test code = 1605) Negative On board controls acceptable with C Line (test code = 3574) Yes POCT PREG LOT # (test code = 3575) POCT PREG TEST DATE ( test code = 3576) [facility] Ag [Presence] in Respiratory specimen by Rapid [id number] 13:34:00* Test Item Value Reference Range Interpretation Comme nts SARS CoV 2 (test code = SARS CoV 2) positive [facility]-COV 2 AntigenSARS-COV 2 Antigen Notes Date/Time Note Provider Source 2022-10-10 11:00:00 [id number]:00:00 Addended by: NORMA GALLEGOS MD on: 10/15/2022 12:37 PM Modules accepted: Orders [id number] [id number] for patient [id number] [id number]:[id number] .[id number]. [id number] [facility]"
[2023-06-19] MEDS ORDERED: NA CHLORIDE 0.9% 1,000 ML ONE (14:10)
[2023-06-19 14:46] LABS: Specific Gravity 1.021 (1.005-1.030); Urine Bilirubin NEGATIVE (Negative); Urine Blood Negative (Negative); Urine Clarity Clear (Clear); Urine Color Light-Yellow (Yellow); Urine Glucose NEGATIVE (Negative); Urine Ketones NEGATIVE (Negative); Urine Microscopic Reflex YN NO UMIC; Urine Nitrite NEGATIVE (Negative); Urine Protein NEGATIVE (Negative); Urine Urobilinogen Normal (Normal); Urine pH 6.5 (5.0-7.0)
[2023-06-19 14:47] LABS: Specific Gravity 1.021 (1.005-1.030)
[2023-06-19 14:49] LABS: Absolute Basophils 0.1 K/uL (0-0.5); Absolute Eosinophils 0.1 K/uL (0-0.5); Absolute Lymphocytes (CBC) 1.9 K/uL (0.7-4.9); Absolute Monocytes 0.4 K/uL (0.1-1.3); Absolute Neutrophil 3.6 K/uL (1.8-8.0); Basophils % 0.9 % (0-1.3); Eosinophils % 1.1 % (0-4.4); Hematocrit 40.2 % (36.0-45.0); Hemoglobin 13.6 g/dL (12.0-15.0); Lymphocytes % 31.2 % (15.3-44.8); MCH 30.5 pg (27.0-35.0); MCHC 33.8 g/dL (32.0-36.0); MCV 90.5 fL (80-100); MPV 9.2 fL (7.6-11.3); Monocytes % 7.2 % (3.3-12.3); Neutrophils % 59.6 % (41.7-73.7); Platelets 184 thou/uL (152-406); RBC Red Blood Cell Count 4.44 M/uL (3.86-4.86); Red Cell Distribution Width 12.6 % (12.1-15.2)
[2023-06-19 15:01] LABS: Albumin 3.8 g/dL (3.4-5.0); Albumin/Globulin Ratio 1.3 (1.1-1.8); Anion Gap 6.4 mEq/L (5.0-15.0); Bilirubin Total 0.6 mg/dL (0.2-1.0); Potassium 3.4 mEq/L (3.5-5.1); Protein, Total 6.8 g/dL (6.4-8.2)
--- NOTE | 2023-06-19 15:29 | RAD REPORT ---
EXAM DESCRIPTION: CTAbdomen Pelvis W Contrast - 06/19/2023 3:19 pm CLINICAL HISTORY: Abdominal pain. ABD PAIN COMPARISON: No comparisons TECHNIQUE: Biphasic CT imaging of the abdomen and pelvis was performed with 100 ml non-ionic IV cont rast. All CT scans are performed using dose optimization technique as appropriate and may include automated exposure control or mA/KV adjustment according to patient size. FINDINGS: The lung bases are clear. The liver, spleen, pancreas, adrenal glands and kidneys are within normal limits. No bowel obstruction, free air, free fluid or abscess. The appendix is normal. No evidence of signi ficant lymphadenopathy. No suspicious bony findings. IMPRESSION: No acute intra-abdominal or pelvic finding.
[2023-06-19] MEDS ORDERED: BISACODYL 10 MG RECTAL SUPP ONE (15:54)
[2023-06-19] MEDS ORDERED: LACTULOSE 20 GM/30 ML UCUP ONE (15:55)
--- NOTE | 2023-06-19 16:23 | EDPHYS ---
Physician Documentation [facility] Name: Marilyn Dotson Age: 33 yrs Sex: Female : 1990 Arrival Date: 06/19/2023 Time: 13:53 Bed 17 Private MD: ED Physician Bari Jenkins HPI: 06/18 14:03 This 33 yrs old Female presents to ER via Unassigned with complaints of kb Constipation, Dehydration. 14:03 Pt is a 33 year old female who presents for lower abd pain and constipation that kb started last week. States she hasn't had a BM in 8 days. Has tried fleet enema, mag citrate, milelax without relief. Reports nausea when she eats so it has caused decreased appetite. Denies fever, vomiting. . Historical: - Allergies: 14:04 No Known Allergies; ko1 - Immunization history:: Adult Immunizations unknown. - Infectious Disease History:: Denies. - Social history:: Smoking status: Patient denies any tobacco usage or history of. ROS: 14:03 Constitutional: As per HPI kb Exam: 14:03 Constitutional: This is a well developed, well nourished patient who is awake, alert, kb and in no acute distress. Head/Face: Normocephalic, atraumatic. ENT: Moist Mucous membranes Cardiovascular: Regular rate Respiratory: Respirations even and unlabored. No increased work of breathing. Talking in full sentences Skin: Warm, dry with normal turgor. Normal color. MS/ Extremity: Pulses equal, no cyanosis. Neurovascular intact. Full, normal range of motion. Neuro: Awake and alert, GCS 15, oriented to person, place, time, and situation. Moves all extremities. Normal gait. 14:03 Abdomen/GI: Inspection: abdomen appears normal, Bowel sounds: normal, Palpation: soft, in all quadrants, mild abdominal tenderness, in the left lower quadrant, moderate abdominal tenderness, in the right lower quadrant, Vital Signs: 14:02 BP 121 / 78; Pulse 98; Resp 18; Temp 97.3; Pulse Ox 100% ; ko1 15:34 BP 131 / 69; Pulse 88; Resp 15 S; Pulse Ox 99% on R/A; kc6 MDM: 13:57 Patient medically screened. kb 14:03 Differential diagnosis: appendicitis, bowel obstruction, non-specific abd pain, kb constipation. Data reviewed: vital signs, nurses notes. 16:23 Counseling: I had a detailed discussion with the patient and/or guardian regarding the kb historical points, exam findings, and any diagnostic results supporting the discharge/admit diagnosis, lab results, radiology results, the need for outpatient follow up, a family practitioner, to return to the emergency department if symptoms worsen or persist or if there are any questions or concerns that arise at home. 06/18 14:03 Order name: CBC with Diff; Complete Time: 14:58 kb 06/18 14:03 Order name: CMP; Complete Time: 15:07 kb 06/18 14:03 Order name: Lipase; Complete Time: 15:07 kb 06/18 14:03 Order name: Test, Urine; Complete Time: 14:58 kb 06/18 14:03 Order name: Urinalysis w/ reflexes; Complete Time: 14:58 kb 06/18 14:03 Order name: CT Abd/Pelvis - IV Contrast Only; Complete Time: 15:39 kb 06/18 14:03 Order name: IV Saline Lock; Complete Time: 14:21 kb 06/18 14:03 Order name: Labs collected and sent; Complete Time: 14:21 kb Administered Medications: 14:21 Drug: NS 0.9% IV 1000 ml IV at 1 bolus Per protocol; 1000 mL bolus Route: IV; Rate: 1 kc6 bolus; Site: right antecubital; 16:00 Drug: Lactulose PO 30 grams 45 ml PO once Volume: 45 ml; Route: PO; kn 16:00 Drug: Dulcolax UT Suppository 10 mg UT once Route: UT; Disposition Summary: 06/19/23 16:23 Discharge Ordered Notes: Location: Home kb Condition: Stable kb Diagnosis - Constipation kb Followup: kb - With: Emergency Department - When: As needed - Reason: Worsening of condition Followup: kb - With: Private Physician - When: 2 - 3 days - Reason: Recheck today's complaints, Continuance of care, Re-evaluation by your physician Discharge Instructions: - Discharge Summary Sheet kb - Constipation, Adult, Adcr-ch-Orwk kb Forms: - Medication Reconciliation Form kb - Thank You Letter kb - Antibiotic Education kb - Prescription Opioid Use kb - Patient Portal Instructions kb - Leadership Thank You Letter kb Addendum: 06/20/2023 23:00 I was immediately available for consultation during this patient's visit. I did not e c2 personally see the patient or discuss the patient with the CHERYL. . Signatures: Dispatcher [employer] Lesley Collier, JINNY MACKEY-Lachelle Martin RN RN kc6 Leyda Weller RN RN ko1 Bari Jenkins MD MD ec2 PERI ALAN RN RN kn
--- NOTE | 2023-06-19 16:23 | ER ---
Nurse's Notes [facility] Name: Marilyn Dotson Age: 33 yrs Sex: Female : 1990 Arrival Date: 06/19/2023 Time: 13:53 Bed 17 [facility] MD: Diagnosis: Constipation Presentation: 06/18 14:02 Chief complaint: Patient states: has been constipated since last Saturday. Has taken OTC ko1 meds with no results, has a lot of pelvic pressure. Coronavirus screen: At this time, the client does not indicate any symptoms associated with coronavirus-19. Ebola Screen: No symptoms or risks identified at this time. Initial Sepsis Screen: Does the patient meet any 2 criteria? No. Patient's initial sepsis screen is negative. Does the patient have a suspected source of infection? No. Patient's initial sepsis screen is negative. Risk Assessment: Do you want to hurt yourself or someone else? Patient reports no desire to harm self or others. Onset of symptoms is unknown. Care prior to arrival: Medication(s) given: multiple constipation medications. 14:02 Method Of Arrival: Ambulatory ko1 14:02 Acuity: RAMONA 3 ko1 Triage Assessment: 14:04 General: Appears in no apparent distress. uncomfortable, Behavior is calm, cooperative, ko1 appropriate for age. Pain: Complains of pain in pelvis. GI: Reports bloating, constipation, cramping, nausea. Historical: - Allergies: 14:04 No Known Allergies; ko1 - Immunization history:: Adult Immunizations unknown. - Infectious Disease History:: Denies. - Social history:: Smoking status: Patient denies any tobacco usage or history of. Screenin:28 [facility] ED Fall Risk Assessment (Adult) History of falling in the last 3 months, kc6 including since admission No falls in past 3 months (0 pts) Confusion or Disorientation No (0 pts) Intoxicated or Sedated No (0 pts) Impaired Gait No (0 pts) Mobility Assist Device Used No (0 pt) Altered Elimination No (0 pt) Score/Fall Risk Level 0 - 2 = Low Risk. Abuse screen: Denies threats or abuse. Denies injuries from another. Nutritional screening: No deficits noted. Tuberculosis screening: No symptoms or risk factors identified. Assessment: 14:28 General: Appears in no apparent distress. comfortable, well groomed, well developed, kc6 Behavior is calm, cooperative, appropriate for age. Pain: Complains of pain in abdomen and left lower quadrant and right lower quadrant Pain does not radiate. Pain currently is 7 out of 10 on a pain scale. Quality of pain is described as aching, crampy, dull, Is continuous. Neuro: Level of Consciousness is awake, alert, obeys commands, Oriented to person, place, time, situation, Appropriate for age. Cardiovascular: Capillary refill < 3 seconds. Respiratory: Airway is patent Trachea midline Respiratory effort is even, unlabored, Respiratory pattern is regular, symmetrical. GI: Bowel sounds present X 4 quads. Abd is soft X 4 quads Abdomen is tender to palpation in suprapubic area, right lower quadrant and left lower quadrant Reports lower abdominal pain, constipation, nausea, Patient currently denies vomiting. : No signs and/or symptoms were reported regarding the genitourinary system. Urine is clear. EENT: No signs and/or symptoms were reported regarding the EENT system. Derm: No signs and/or symptoms reported regarding the dermatologic system. Skin is intact, is healthy with good turgor, Skin is pink, warm \T\ dry. Musculoskeletal: No signs and/or symptoms reported regarding the musculoskeletal system. Circulation, motion, and sensation intact. Capillary refill < 3 seconds, Range of motion: intact in all extremities. 15:28 Reassessment: Patient appears in no apparent distress at this time. No changes from kc6 previously documented assessment. Patient and/or family updated on plan of care and expected duration. Pain level reassessed. Patient is alert, oriented x 3, equal unlabored respirations, skin warm/dry/pink. Vital Signs: 14:02 BP 121 / 78; Pulse 98; Resp 18; Temp 97.3; Pulse Ox 100% ; ko1 15:34 BP 131 / 69; Pulse 88; Resp 15 S; Pulse Ox 99% on R/A; kc6 ED Course: 13:55 Patient arrived in ED. im 13:55 Lesley Gallegos FNP-C [facility] kb 13:55 Bari Jenkins MD is Attending Physician. kb 14:04 Triage completed. ko1 14:04 Arm band placed on right wrist. Patient placed in an exam room, on a stretcher, on ko1 pulse oximetry, Patient notified of wait time. 14:07 Lachelle Brito, RN is Primary Nurse. kc6 14:21 Inserted saline lock: 20 gauge in right forearm, using aseptic technique. Blood kc6 collected. 14:28 Patient has correct armband on for positive identification. Bed in low position. Call kc6 light in reach. Side rails up X 1. Client placed on continuous cardiac and pulse oximetry monitoring. NIBP monitoring applied. Warm blanket given. 15:21 CT Abd/Pelvis - IV Contrast Only In Process Unspecified. EDMS 16:37 No provider procedures requiring assistance completed. IV discontinued, intact, kc6 bleeding controlled, No redness/swelling at site. Pressure dressing applied. Administered Medications: 14:21 Drug: NS 0.9% IV 1000 ml IV at 1 bolus Per protocol; 1000 mL bolus Route: IV; Rate: 1 kc6 bolus; Site: right antecubital; 16:00 Drug: Lactulose PO 30 grams 45 ml PO once Volume: 45 ml; Route: PO; kn 16:00 Drug: Dulcolax MN Suppository 10 mg MN once Route: MN; kn Medication: 16:38 VIS not applicable for this client. kc6 Outcome: 16:23 Discharge ordered by MD. kb 16:37 Discharged to home ambulatory, kc6 16:37 Condition: good 16:37 Discharge instructions given to patient, Instructed on discharge instructions, follow up and referral plans. Demonstrated understanding of instructions, follow-up care, 16:38 Patient left the ED. kc6 Signatures: Dispatcher [employer] EDME Lesley Gallegos, KEY-C TIE BUCKER-Lachelle Martin, RN RN kc6 Leyda Weller RN RN ko1 Liz Hutton KARLENE, YAYA RN kn
[2023-06-19 23:33] VITALS: BP 131/69; TEMP 97.3; O2SAT 99
== END 2023-06-19 16:38 | disposition home or self-care (01) ==
LOC: ER 13:53
DX: K59.00 Constipation, unspecified (principal)
CPT/HCPCS: 85025; 36415; 81025; 81003; 83690; 80053; 74177; Q9967; J7030

== ENCOUNTER 2024-02-13 16:20 | Emergency (ER) | payer BC ==
--- OUTSIDE RECORDS SUMMARY | 2024-02-13 16:23 | XMS REPORT | Continuity of Care Document ---
Author Name Unknown Address [address] [facility] [place] [address] [facility] Address [address] [facility] [address] [place] [address] Care Team Providers Care Supervisor Cigar Processing Name Role Phone GUADALUPE QUINTERO Primary Care Physician Unavailab Guadalupe Street Attending Clinician Unavailable JENARO NAVARRO Attending Clinician Unavailable Jenaro Martinez Attending Clinician [phone] Unknown, Attending Attending Clinician Unavailab NORMA Raya Attending Clinician Unavailable NORMA GALLEGOS Attending Clinician Unavailable MAXWELL PICHARDO Attending Clinician Unavailable CALIN CHACON Attending Clinician Unavailabl e Doctor Unassigned, [place] Attending Clinician U navailable MIKE BLOCK Attending Clinician Unavaila ble TONY BLOCKYAL Attending Clinician Unavaila ble UNKNOWN, ATTENDING Attending Clinician Unavailab ANNA Epstein Attending Clinician Unavailable YISSEL_REYNALDO Attending Clinician Unavailable Anna Calzada MD Attending Clinician [phone] Lab, Ang - Db Attending Clinician Unavailable LUCIA DO Attending Clinician Unavailable CAROLINE Attending Clinician Unavailable Colten Escobar DO Attending Clinician [phone] Kimber Powell Attending Clinician [phone] Lab, Adc Fam Pob I Attending Clinician UnavailJannet Garcia Attending Clinician [phone] JANNET LANDRUM Attending Clinician Unavailable Aria Nava Attending Clinician [phone] ARIA GRACIA Attending Clinician Unavailable AILIN SPENCER Attending Clinician Unavail able Ailin Ramirez Attending Clinician + YISSELED Admitting Clinician Unavailable CAROLINE Admitting Clinician Unavailable Payers Payer Name Policy Type Policy Number Effective Date Expirati on Date Source [place] [address] [id number] 2023 00:00:00 [facility] [id number] 2020 00:00:00 [place] [address] [id number] 2020 00:00:00 [facility] ([facility]) [id number] 2018 00:00:00 Problems Condition Name Condition Details Condition Category Status Onset Date Resolution Date Last Treatment Date Treating Clinician Comments Source Urge incontinen ce of urine Urge incontinen ce of urine Disease Active 06-19 00:00: 00 [facility] Chronic fatigue Chronic fatigue Disease Active 2021-03 0-14 00:00: 00 [facility] Myalgia, multiple sites Myalgia, multiple sites Disease Active 2021-03 0-14 00:00: 00 [facility] Hearing loss Hearing loss Disease Active 18 00:00: 00 [facility] Chronic constipati on Chronic constipati on Disease Active 18 00:00: 00 [facility] IUD strings lost IUD strings lost Disease Active 2016-03 0-20 00:00: 00 [facility] Presence of intrauteri ne contracept boby device Presence of intrauteri ne contracept boby device Disease Active 2015-03 2-16 00:00: 00 [facility] Dysmenorrh ea Dysmenorrh ea Disease Active 07-12 00:00: 00 [facility] BV (bacterial vaginosis) BV (bacterial vaginosis) Disease Active 07-12 00:00: 00 [facility] Vaginal yeast infection Vaginal yeast infection Disease Active 07-12 00:00: 00 [facility] Encounter for well woman exam with routine gynecologi cally exam Encounter for well woman exam with routine gynecologi cally exam Disease Active 07-12 00:00: 00 [facility] [id number] Anxiety Problem Active [facility] [id number] Tinnitus, left ear Problem Active [facility] [id number] Chronic Idiopathic Constipati on Problem Active [facility] Adult attention deficit disorder Adult attention deficit disorder Problem Active [facility] Insomnia Insomnia Problem Active [facility] [id number] Adult BMI 30.0-30.9 kg/sq m Problem Active [facility] [id number] Decreased hearing of left ear Problem Active [facility] [id number] FRANK (generaliz ed anxiety disorder) Problem Active [facility] Allergies, Adverse Reactions, Alerts Allergy Name Allergy Type Status Severity Reaction(s) Onset Date Inactive Date Treating Clinician Comments Source NO KNOWN ALLERGIE S Drug Class Active [facility] Social History Social Habit Start Date Stop Date Quantity Comments Source History of Tobacco Use [facility] Sex Assigned At [facility] History SDOH Alcohol Frequency [facility] History SDOH Alcohol Std Drinks [facility] History SDOH Alcohol Binge [facility] Gender identity [facility] Sexual orientation [facility] Alcohol intake 2023-03-26 00:00:00 2023-03-26 00:00:00 0 /d [facility] Exposure to SARS-CoV-2 (event) 2021-12-04 00:00:00 2021-12-14 16:19:00 Not sure [facility] Tobacco use and exposure 2021-12-14 00:00:00 2021-12-14 00:00:00 Smokeless tobacco non-user [facility] History of Social function 2021-06-23 00:00:00 2021-06-23 00:00:00 [facility] Alcohol Comment 2012-06-27 00:00:00 2012-06-27 00:00:00 socially [facility] Smoking Status Start Date Stop Date Source Never smoked tobacco [facility] Medications Ordered Medication Name Filled Medication Name Start Date Stop Date Current Medication? Ordering Clinician Indication Dosage Frequency Signature (SIG) Comments Components Source Linzess 72 MCG Linzess 72 MCG 09-22 00:00: 00 No QD Linzess 72 MCG lactulose 10 gram/15 mL oral solution 06-27 00:00: 00 07-03 04:59 :00 No [id number] 60mL Take 60 mL by mouth in the morning for 5 days. Do not take if loose stools. [facility] sulfamethox azole-trime thoprim 800-160 mg per tablet 10-15 00:00: 00 10-19 04:59 :00 No [id number] 1{tbl} Take 1 tablet by mouth in the morning and 1 tablet in the evening. Do all this for 3 days. [facility] zolpidem 10 mg tablet 09-05 00:00: 00 Yes TAKE ONE (1) TABLET(S) BY MOUTH ONCE A DAY AT BEDTIME NEEDED. [facility] TRAZODONE HCL (TRAZODONE ORAL) 2021-03 16:38: 31 Yes Take by mouth. [facility] norgestimat e-ethinyl estradioL 0.18/0.215/ 0.25 mg-25 mcg tablet 2021-03 00:00: 00 Yes [id number] 1{tbl} Take 1 tablet by mouth in the morning. [facility] Sertraline HCl 100 MG Sertraline HCl 100 MG 09-07 00:00: 00 No 1{table t} QD Sertraline HCl 100 MG dextroamphe tamine-amph etamine 30 mg tablet 09-07 00:00: 00 12-14 00:00 :00 No 1 tablet [facility] levonorgest reL (KYLEENA) IUD 1 Device 07-25 20:45: 00 07-25 19:44 :00 No [id number] 1{devic e} [facility] TRINTELLIX 10 mg Tab 07-13 00:00: 00 Yes [facility] TRAZODONE HCL (TRAZODONE ORAL) 06-23 13:18: 26 Yes Take by mouth. [facility] levonorgest rel-ethinyl estradiol 0.1-20 mg-mcg per tablet 06-23 00:00: 00 07-25 00:00 :00 No [id number] 1{tbl} Take 1 tablet by mouth daily. [facility] MYDAYIS 25 mg CT24 05-11 00:00: 00 07-25 00:00 :00 No 1{capsu le} Take 1 capsule by mouth every morning. [facility] dextroamphe tamine-amph etamine 30 mg tablet 03-28 00:00: 00 Yes 30mg Take 1 tablet by mouth in the morning and 1 tablet in the evening. [facility] Venlafaxine HCl ER 75 MG Venlafaxine HCl ER 75 MG 11-02 00:00: 00 No 1{capsu le_with _food} QD Venlafaxin e HCl ER 75 MG Lactulose 10 GM/15ML Lactulose 10 GM/15ML 1-08 00:00: 00 No BID Lactulose 10 GM/15ML Vitamin B12 (Cyanocobal hernandez) Vitamin B12 (Cyanocobal hernandez) 09-12 00:00: 00 No 1000ug [facility] traZODone HCl 150 MG traZODone HCl 150 MG No 1{table t_at_be dtime} QD traZODone HCl 150 MG Xulane 150-35 MCG/24HR Xulane 150-35 MCG/24HR No Xulane 150-35 MCG/24HR NuvaRing 0.12-0.015 MG/24HR NuvaRing 0.12-0.015 MG/24HR No NuvaRing 0.12-0.015 MG/24HR Vyvanse 70 MG Vyvanse 70 MG No 1{capsu le_in_t he_morn ing} QD Vyvanse 70 MG ALPRAZolam 1 MG ALPRAZolam 1 MG No 1{table t} QD ALPRAZolam 1 MG albuterol sulfate HFA 90 mcg/actuati on [...] inhalation route as needed for 30 days. [facility] alprazolam 1 mg tablet TAKE 1 TABLET BY MOUTH EVERY DAY. alprazolam 1 mg tablet TAKE 1 TABLET BY MOUTH EVERY DAY. No alprazolam 1 mg tablet TAKE 1 TABLET BY MOUTH EVERY DAY. [facility] etonogestre l 0.12 mg-ethinyl estradiol 0.015 mg/24 [...] 3 WEEKS THEN REMOVE FOR 1 WEEK [facility] prednisone 5 mg tablets in a dose pack Take 1 dose pk by oral route as directed for 6 days. prednisone 5 mg tablets in a dose pack Take 1 dose pk by oral route as directed for 6 days. No 1dose pk(s) prednisone 5 mg tablets in a dose pack Take 1 dose pk by oral route as directed for 6 days. [facility] trazodone 150 mg tablet TAKE 1 TABLET BY MOUTH EVERY DAY AT BEDTIME trazodone 150 mg tablet TAKE 1 TABLET BY MOUTH EVERY DAY AT BEDTIME No trazodone 150 mg tablet TAKE 1 TABLET BY MOUTH EVERY DAY AT BEDTIME [facility] Zithromax Z-Oj 250 mg tablet TAKE 2 [...] ORAL ROUTE ONCE DAILY FOR 4 DAYS [facility] Immunizations Ordered Immunization Name Filled Immunization Name Date Status Comments Source Influenza Virus Vaccine 2021-04-04 00:00:00 Completed [facility] Influenza Virus Vaccine 2021-04-04 00:00:00 Completed [facility] Influenza Virus Vaccine 2021-04-04 00:00:00 Completed [facility] Influenza Virus Vaccine 2021-04-04 00:00:00 Completed [facility] Influenza Virus Vaccine 2021-04-04 00:00:00 Completed [facility] Influenza Virus Vaccine 2021-04-04 00:00:00 Completed [facility] Afluria single dose Afluria single dose 2020-02-16 15:38:00 Completed [facility] Afluria single dose Afluria single dose 2020-02-16 15:38:00 Completed [facility] Afluria single dose Afluria single dose 2020-02-16 15:38:00 Completed [facility] Influenza Virus Vaccine Quad IM 3+ YRS 2020-02-16 00:00:00 Completed [facility] Influenza Virus Vaccine Quad IM 3+ YRS 2020-02-16 00:00:00 Completed [facility] Influenza Virus Vaccine Quad IM 3+ YRS 2020-02-16 00:00:00 Completed [facility] Influenza Virus Vaccine Quad IM 3+ YRS 2020-02-16 00:00:00 Completed [facility] Influenza Virus Vaccine Quad IM 3+ YRS 2020-02-16 00:00:00 Completed [facility] Influenza Virus Vaccine Quad IM 3+ YRS 2020-02-16 00:00:00 Completed [facility] Vitamin B12 (Cyanocobalamin) Vitamin B12 (Cyanocobalamin) 2018-09-12 11:41:00 Completed [facility] Vitamin B12 (Cyanocobalamin) Vitamin B12 (Cyanocobalamin) 2018-09-12 11:41:00 Completed [facility] Afluria Afluria 2017-12-09 09:50:00 [facility] 2017[facility]12[facility]09 09:50:00 Completed [facility] 2017-12-09 09:50:00 Completed [facility] Influenza Virus Vaccine (3+ yrs) 2017-12-09 00:00:00 Completed [facility] Influenza Virus Vaccine (3+ yrs) 2017-12-09 00:00:00 Completed [facility] Influenza Virus Vaccine (3+ yrs) 2017-12-09 00:00:00 Completed [facility] Influenza Virus Vaccine (3+ yrs) 2017-12-09 00:00:00 Completed [facility] Influenza Virus Vaccine (3+ yrs) 2017-12-09 00:00:00 Completed [facility] Influenza Virus Vaccine (3+ yrs) 2017-12-09 00:00:00 Completed [facility] HPV9 2017-01-04 00:00:00 Completed [facility] HPV9 2017-01-04 00:00:00 Completed [facility] HPV9 2017-01-04 00:00:00 Completed [facility] HPV9 2017-01-04 00:00:00 Completed [facility] HPV9 2017-01-04 00:00:00 Completed [facility] HPV9 2017-01-04 00:00:00 Completed [facility] HPV9 2017-01-04 00:00:00 Completed [facility] TDAP 2015-07-13 00:00:00 Completed [facility] HPV9 2015-07-13 00:00:00 Completed [facility] TDAP 2015-07-13 00:00:00 Completed [facility] HPV9 2015-07-13 00:00:00 Completed [facility] TDAP 2015-07-13 00:00:00 Completed [facility] HPV9 2015-07-13 00:00:00 Completed [facility] TDAP 2015-07-13 00:00:00 Completed [facility] HPV9 2015-07-13 00:00:00 Completed [facility] TDAP 2015-07-13 00:00:00 Completed [facility] HPV9 2015-07-13 00:00:00 Completed [facility] TDAP 2015-07-13 00:00:00 Completed [facility] HPV9 2015-07-13 00:00:00 Completed [facility] Rubella 2011-02-01 00:00:00 Completed [facility] Rubella 2011-02-01 00:00:00 Completed [facility] Rubella 2011-02-01 00:00:00 Completed [facility] Rubella 2011-02-01 00:00:00 Completed [facility] Rubella 2011-02-01 00:00:00 Completed [facility] Rubella 2011-02-01 00:00:00 Completed [facility] Td 2004-03-04 00:00:00 Completed [facility] Td 2004-03-04 00:00:00 Completed [facility] Td 2004-03-04 00:00:00 Completed [facility] TD, NOS 2004-03-04 00:00:00 Completed [facility] TD, NOS 2004-03-04 00:00:00 Completed [facility] TD, NOS 2004-03-04 00:00:00 Completed [facility] Afluria (IIV4) - 3 years and older - SDS - 0.5mL Afluria (IIV4) - 3 years and older - SDS - 0.5mL Unknown Completed [facility] Afluria Afluria Unknown Completed [facility] Afluria (IIV4) - 3 years and older - SDS - 0.5mL Afluria (IIV4) - 3 years and older - SDS - 0.5mL Unknown Completed [facility] Afluria Afluria Unknown Completed [facility] Rubella Unknown Completed [facility] TD, NOS Unknown Completed [facility] TDAP Unknown Completed [facility] HPV9 Unknown Completed [facility] Influenza Virus Vaccine (3+ yrs) Unknown Completed [facility] Influenza Virus Vaccine Quad IM 3+ YRS Unknown Completed [facility] Influenza Virus Vaccine Unknown Completed [facility] Rubella Unknown Completed [facility] TD, NOS Unknown Completed [facility] TDAP Unknown Completed [facility] HPV9 Unknown Completed [facility] Influenza Virus Vaccine (3+ yrs) Unknown Completed [facility] Influenza Virus Vaccine Quad IM 3+ YRS Unknown Completed [facility] Influenza Virus Vaccine Unknown Completed [facility] Rubella Unknown Completed [facility] TD, NOS Unknown Completed [facility] TDAP Unknown Completed [facility] HPV9 Unknown Completed [facility] Influenza Virus Vaccine (3+ yrs) Unknown Completed [facility] Influenza Virus Vaccine Quad IM 3+ YRS Unknown Completed [facility] Influenza Virus Vaccine Unknown Completed [facility] Rubella Unknown Completed [facility] TD, NOS Unknown Completed [facility] TDAP Unknown Completed [facility] Influenza Virus Vaccine (3+ yrs) Unknown Completed [facility] Influenza Virus Vaccine Quad IM 3+ YRS Unknown Completed [facility] Influenza Virus Vaccine Unknown Completed [facility] Rubella Unknown Completed [facility] TD, NOS Unknown Completed [facility] TDAP Unknown Completed [facility] Influenza Virus Vaccine (3+ yrs) Unknown Completed [facility] Influenza Virus Vaccine Quad IM 3+ YRS Unknown Completed [facility] Influenza Virus Vaccine Unknown Completed [facility] Rubella Unknown Completed [facility] TD, NOS Unknown Completed [facility] TDAP Unknown Completed [facility] HPV9 Unknown Completed [facility] Influenza Virus Vaccine (3+ yrs) Unknown Completed [facility] Influenza Virus Vaccine Quad IM 3+ YRS Unknown Completed [facility] Influenza Virus Vaccine Unknown Completed [facility] HPV9 Unknown Completed [facility] Rubella Unknown Completed [facility] TD, NOS Unknown Completed [facility] TDAP Unknown Completed [facility] HPV9 Unknown Completed [facility] Influenza Virus Vaccine (3+ yrs) Unknown Completed [facility] Influenza Virus Vaccine Quad IM 3+ YRS Unknown Completed [facility] Influenza Virus Vaccine Unknown Completed [facility] Vital Signs Vital Name Observation Time Observation Value Comments S jo ann height 2023-09-18 08:40:00 64 [in_i] Commo n [facility] weight 2023-09-18 08:40:00 170 [lb_av] Comm on [facility] temperature 2023-09-18 08:40:00 98 [degF] Comm on [facility] bmi 2023-09-18 08:40:00 29.18 kg/m2 Comm on [facility] oximetry 2023-09-18 08:40:00 99 % Commo n [facility] blood pressure systolic 2023-09-18 08:40:00 114 mm[Hg] [facility] blood pressure diastolic 2023-09-18 08:40:00 66 mm[Hg] [facility] Systolic blood pressure 2023-06-28 14:11:00 106 mm[Hg] [facility] Diastolic blood pressure 2023-06-28 14:11:00 71 mm[Hg] [facility] Heart rate 2023-06-28 14:11:00 98 /min [facility] Body temperature 2023-06-28 14:11:00 37 [place] [facility] Respiratory rate 2023-06-28 14:11:00 20 /min [facility] Body height 2023-06-28 14:11:00 157.5 cm [facility] Body weight 2023-06-28 14:11:00 79.379 kg [facility] BMI 2023-06-28 14:11:00 32.01 kg/m2 [facility] Oxygen saturation in Arterial blood by Pulse oximetry 2023-06-28 14:11:00 100 /min [facility] Systolic blood pressure 2022-10-10 16:07:00 122 mm[Hg] [facility] Diastolic blood pressure 2022-10-10 16:07:00 78 mm[Hg] [facility] Heart rate 2022-10-10 16:07:00 98 /min Un[facility] Body temperature 2022-10-10 16:07:00 37.06 [place] [facility] Respiratory rate 2022-10-10 16:07:00 18 /min [facility] Body height 2022-10-10 16:07:00 157.5 cm [facility] Body weight 2022-10-10 16:07:00 76.204 kg [facility] BMI 2022-10-10 16:07:00 30.73 kg/m2 [facility] Oxygen saturation in Arterial blood by Pulse oximetry 2022-10-10 16:07:00 98 /min [facility] Systolic blood pressure 2022-06-19 16:46:00 116 mm[Hg] [facility] Diastolic blood pressure 2022-06-19 16:46:00 77 mm[Hg] [facility] Heart rate 2022-06-19 16:46:00 84 /min Un[facility] Respiratory rate 2022-06-19 16:46:00 18 /min [facility] Body height 2022-06-19 16:46:00 157.5 cm [facility] Body weight 2022-06-19 16:46:00 76.658 kg [facility] BMI 2022-06-19 16:46:00 30.91 kg/m2 [facility] Systolic blood pressure 2021-12-14 21:36:00 112 mm[Hg] [facility] Diastolic blood pressure 2021-12-14 21:36:00 87 mm[Hg] [facility] Heart rate 2021-12-14 21:36:00 98 /min [facility] Body temperature 2021-12-14 21:36:00 36.94 [place] [facility] Respiratory rate 2021-12-14 21:36:00 16 /min [facility] Body height 2021-12-14 21:36:00 160 cm [facility] Body weight 2021-12-14 21:36:00 78.064 kg [facility] BMI 2021-12-14 21:36:00 30.49 kg/m2 [facility] Oxygen saturation in Arterial blood by Pulse oximetry 2021-12-14 21:36:00 98 /min [facility] height 2021-09-07 13:00:00 64 [in_i] Commo n [facility] weight 2021-09-07 13:00:00 175 [lb_av] Comm on [facility] temperature 2021-09-07 13:00:00 98 [degF] Comm on [facility] bmi 2021-09-07 13:00:00 30.04 kg/m2 Comm on [facility] blood pressure systolic 2021-09-07 13:00:00 116 mm[Hg] [facility] blood pressure diastolic 2021-09-07 13:00:00 76 mm[Hg] [facility] Systolic blood pressure 2021-07-25 18:49:00 119 mm[Hg] [facility] Diastolic blood pressure 2021-07-25 18:49:00 81 mm[Hg] [facility] Heart rate 2021-07-25 18:49:00 93 /min [facility] 2021-07-25 18:49:00 37.06 [place] [facility] Respiratory rate 2021-07-25 18:49:00 16 /min [facility] Body height 2021-07-25 18:49:00 160 cm [facility] Body weight 2021-07-25 18:49:00 77.111 kg [facility] BMI 2021-07-25 18:49:00 30.11 kg/m2 [facility] Oxygen saturation in Arterial blood by Pulse oximetry 2021-07-25 18:49:00 99 /min [facility] height 2021-07-13 11:20:00 64 [in_i] Commo n [facility] weight 2021-07-13 11:20:00 173.6 [lb_av] Co mmon [facility] temperature 2021-07-13 11:20:00 98.2 [degF] Com mon [facility] bmi 2021-07-13 11:20:00 29.8 kg/m2 Commo n [facility] oximetry 2021-07-13 11:20:00 97 % Commo n [facility] respiratory rate 2021-07-13 11:20:00 18 /min Common [facility] blood pressure systolic 2021-07-13 11:20:00 108 mm[Hg] Common [facility] blood pressure diastolic 2021-07-13 11:20:00 62 mm[Hg] Common [facility] height 2021-03-28 08:00:00 64 [in_i] Commo n [facility] weight 2021-03-28 08:00:00 175 [lb_av] Comm on [facility] temperature 2021-03-28 08:00:00 97 [degF] Comm on [facility] bmi 2021-03-28 08:00:00 30.04 kg/m2 Comm on [facility] blood pressure systolic 2021-03-28 08:00:00 130 mm[Hg] Common [facility] blood pressure diastolic 2021-03-28 08:00:00 72 mm[Hg] Common [facility] height 2021-01-03 11:10:00 64 [in_i] Commo n [facility] weight 2021-01-03 11:10:00 175 [lb_av] Comm on [facility] temperature 2021-01-03 11:10:00 98 [degF] Comm on [facility] bmi 2021-01-03 11:10:00 30.04 kg/m2 Comm on [facility] blood pressure systolic 2021-01-03 11:10:00 132 mm[Hg] [facility] blood pressure diastolic 2021-01-03 11:10:00 70 mm[Hg] [facility] height 2020-12-19 13:00:00 64 [in_i] Commo n [facility] weight 2020-12-19 13:00:00 175.4 [lb_av] Co [facility] bmi 2020-12-19 13:00:00 30.1 kg/m2 Commo n [facility] height 2020-12-05 10:20:00 64 [in_i] Commo n [facility] weight 2020-12-05 10:20:00 175.4 [lb_av] Co [facility] temperature 2020-12-05 10:20:00 97.4 [degF] Com [facility] bmi 2020-12-05 10:20:00 30.1 kg/m2 Commo n [facility] oximetry 2020-12-05 10:20:00 100 % Commo n [facility] respiratory rate 2020-12-05 10:20:00 18 /min Common [facility] blood pressure systolic 2020-12-05 10:20:00 135 mm[Hg] [facility] blood pressure diastolic 2020-12-05 10:20:00 87 mm[Hg] Common [facility] height 2020-11-02 08:10:00 64 [in_i] Commo n [facility] weight 2020-11-02 08:10:00 176.3 [lb_av] Co [facility] temperature 2020-11-02 08:10:00 98.1 [degF] Com [facility] bmi 2020-11-02 08:10:00 30.26 kg/m2 Comm on [facility] oximetry 2020-11-02 08:10:00 98 % Commo n [facility] respiratory rate 2020-11-02 08:10:00 17 /min [facility] blood pressure systolic 2020-11-02 08:10:00 125 mm[Hg] [facility] blood pressure diastolic 2020-11-02 08:10:00 80 mm[Hg] [facility] BP Diastolic 2020-04-25 00:00:00 81 mm[Hg] [facility] BP Systolic 2020-04-25 00:00:00 123 mm[Hg] [facility] Body Weight 2020-04-25 00:00:00 2992 [oz_av] [facility] Procedures Procedure Date / Time Performed Performing Clinicia n Source XR KUB 2023-06-28 14:49:56 Jenaro Navarro [facility] URINE CULTURE 2022-10-10 17:15:00 Norma Gallegos [facility] ASSIGNMENT OF BENEFITS 2022-10-10 15:57:00 Docto r Unassigned, [place] [facility] POCT URINALYSIS AUTO 2022-10-10 15:50:00 Keisha Gallegos [facility] PATIENT FINANCIAL POLICY 2022-06-19 16:26:30 Doctor Unassigned, [place] [facility] POCT TEST 2021-07-25 19:22:00 ZhengJrkrystal Venegas [facility] DISCLOSURE AND CONSENT, MEDICAL AND SURGICAL PROCEDURES 2021-07-25 05:01:00 Doctor Unassigned, [place] [facility] Plan of Care Planned Activity Planned Date Details Comments Source Diagnostic Test Pending 2020-04-25 00:00:00 rapid SARS CoV 2 Ag, QL IA, respiratory specimen [code = rapid SARS CoV 2 Ag, QL IA, respiratory specimen] [facility] Instructions [facility] Encounters Start Date/Time End Date/Time Encounter Type Admission Type Attending Clinicians Care Facility Care Department Encounter ID Source 2023-10-14 10:53:[facility] [id number] 2023-09-18 08:56:00 Outpatient Quintero, Guadalupe STLMLC STLMLC [id number] [facility] 2023-09-16 13:33:00 Outpatient Quintero, Guadalupe STLMLC STLMLC [id number] [facility] 2021-07-20 16:13:01 Outpatient Quintero, Guadalupe STLMLC STLMLC [id number] [facility] 2021-07-13 08:27:01 Outpatient Quintero, Guadalupe STLMLC STLMLC [id number] [facility] 2021-05-11 10:57:01 Outpatient Quintero, Guadalupe STLMLC STLMLC [id number] [facility] 2021-03-29 14:36:17 Outpatient Quintero, Guadalupe STLMLC STLMLC [id number] [facility] 2021-03-29 14:07:40 Outpatient Quintero, Guadalupe STLMLC STLMLC [id number] [facility] 2021-03-29 14:01:49 Outpatient Quintero, Guadalupe STLMLC STLMLC [id number] [facility] 2021-03-29 13:55:48 Outpatient Quintero, Guadalupe STLMLC STLMLC [id number] [facility] 2021-03-29 13:55:20 Outpatient Quintero, Guadalupe STLMLC STLMLC [id number] [facility] 2021-03-29 13:40:15 Outpatient Quintero, Guadalupe STLMLC STLMLC [id number] [facility] 2021-03-29 13:39:55 Outpatient Quintero, Guadalupe STLMLC STLMLC [id number] [facility] 2021-03-29 13:13:36 Outpatient Quintero, Guadalupe STLMLC STLMLC [id number] [facility] 2021-03-29 13:12:43 Outpatient Quintero, Guadalupe STLMLC STLMLC [id number] [facility] 2021-03-29 13:05:56 Outpatient Quintero, Guadalupe STLMLC STLC [id number] [facility] 2021-03-29 12:47:28 Outpatient Quintero, Guadalupe STLMLC STLMLC [id number] [facility] 2021-03-29 12:39:36 Outpatient Quintero, Guadalupe STLC STLMLC [id number] [facility] 2021-03-29 12:39:04 Outpatient Quintero, Guadalupe STLC STLC [id number] [facility] 2021-03-29 12:20:18 Outpatient Quintero, Guadalupe STLC STLC [id number] [facility] 2021-03-29 12:15:07 Outpatient Quintero, Guadalupe STLC STLC [id number] [facility] 2021-03-29 12:13:43 Outpatient Quintero, Guadalupe STLMLC STLC [id number] [facility] 2021-03-29 12:09:42 Outpatient Quintero, Guadalupe STLMLC STLC [id number] [facility] 2021-03-29 11:59:40 Outpatient Quintero, Guadalupe STLC STLC [id number] [facility] 2023-09-23 00:00:00 2023-09-23 00:00:00 ([facility]) STLMLC STLMLC [id number] [facility] 2023-09-18 00:00:00 2023-09-18 00:00:00 PREV VISIT EST AGE 18-39 STLMLC STLMLC [id number] [facility] 2023-06-28 09:21:59 2023-06-28 23:59:00 Outpatient R JNEARO NAVARRO [facility] [id number] [facility] 2023-06-28 09:21:59 2023-06-28 23:59:00 Hospital Encounter Jenaro Navarro [facility] 1.2.840.114 350.1.13.10 4.2.7.2.686 [id number] [facility] 2023-06-28 09:00:00 2023-06-28 09:32:05 Urgent Care Jenaro Navarro Unknown, Attending [facility]END[facility] 1.2.840.114 350.1.13.10 4.2.7.2.686 [id number] [facility] 2023-06-28 00:00:00 2023-06-28 00:00:00 Letter (Out) Jenaro Navarro [facility] 1.2.840.114 350.1.13.10 4.2.7.2.686 [id number] [facility] 2023-06-28 00:00:00 2023-06-28 00:00:00 (TEL) STLMLC STLMLC [id number] [facility] 2023-04-12 11:30:00 2023-04-12 11:30:00 Outpatient NORMA NAVA ELISHA [facility] [id number] [facility] 2023-02-01 09:00:00 2023-02-01 09:00:00 Outpatient MAXWELL FARMER [facility] [id number] [facility] 2023-01-11 14:30:00 2023-01-11 14:30:00 Outpatient NORMA NAVA ELISHA [facility] [id number] [facility] 2022-10-16 07:15:00 2022-10-16 07:15:00 Outpatient CALIN NASCIMENTO [facility] [id number] [facility] 2022-10-15 00:00:00 2022-10-15 00:00:00 Patient Secure Msg Doctor Unassigned, [place] [facility] M[facility] 1..840.114 350.1.13.10 4.2.7.2.686 [id number] [facility] 2022-10-10 11:00:00 2022-10-10 12:31:15 [facility] [id number] [facility] 2022-10-10 11:00:00 2022-10-10 12:31:15 Office Visit Norma Gallegos [facility] 1..840.114 350.1.13.10 4.2.7.2.686 [id number] [facility] 2022-10-10 00:00:00 2022-10-10 00:00:00 Orders Only Doctor Unassigned, [place] [facility] 1..840.114 350.1.13.10 4.2.7.2.686 [id number] [facility] 2022-07-09 09:30:00 2022-07-09 09:30:00 Outpatient MIKE DE LUNA CHERYAL [facility] [id number] [facility] 2022-07-04 09:30:00 2022-07-04 09:30:00 Outpatient R NORMA GALLEGOS ELISHA [facility] [id number] [facility] 2022-06-27 11:00:00 2022-06-27 11:00:00 Outpatient MIKE DE LUNA CHERYAL [facility] [id number] [facility] 2022-06-26 11:00:00 2022-06-26 11:00:00 Outpatient MIKE DE LUNA CHERYAL [facility] [id number] [facility] 2022-06-19 11:30:00 2022-06-19 13:31:36 Outpatient R MIKE BLOCK CHERYAL [facility] [id number] [facility] 2022-06-19 11:30:00 2022-06-19 12:00:00 [facility] 1.20.114 350.1.13.10 4.2.7.2.686 [id number] [facility] 2022-06-19 00:00:00 2022-06-19 00:00:00 Orders Only Doctor Unassigned, [place] [facility] 1.84.114 350.1.13.10 4.2.7.2.686 [id number] [facility] 2022-02-26 10:45:00 2022-02-26 10:45:00 Outpatient R UNKNOWN, ATTENDING [facility] [id number] [facility] 2021-12-22 00:00:00 2021-12-22 00:00:00 Patient Secure Msg Doctor Unassigned, [place] [facility] 1.840.114 350.1.13.10 4.2.7.2.686 [id number] [facility] 2021-12-14 16:00:00 2021-12-14 17:08:10 Outpatient R MIKE BLOCK CHERYAL [facility] [id number] [facility] 2021-12-14 16:00:00 2021-12-14 17:08:10 Office Visit DulceMike haro [facility] 1.2840.114 350.1.13.10 4.2.7.2.686 [id number] [facility] 2021-12-14 16:30:2021-12-14 16:30:00 Outpatient R DULCEARTUROMIKE JURADO DULCEQUANWYATTMIKE JURADO [facility] [id number] [facility] 2021-11-30 08:30:00 2021-11-30 08:30:00 Outpatient R ANNA CALZADA [facility] [id number] [facility] 2021-09-27 00:00:00 2021-09-27 00:00:00 Outpatient LISTER_MELI GRAHAM [facility]LL[facility] [id number] [facility] Outre [facility] Program 2021-09-07 00:00:00 2021-09-07 00:00:00 OFFICE VISIT ESTAB PT LEVEL 4 STLMLC STLC [id number] [facility] 2021-08-30 00:00:00 2021-08-30 00:00:00 [facility] [id number] [facility] 2021-08-05 00:00:00 2021-08-05 00:00:00 Patient Secure Msg Doctor Unassigned, [place] [facility] 1..114 350.1.13.10 4.2.7.2.686 [id number] [facility] 2021-07-25 13:30:00 2021-07-25 14:37:07 Outpatient R ANNA CALZADA [facility] [id number] [facility] 2021-07-25 13:30:00 2021-07-25 14:37:07 Office Visit Anna Calzada [facility] 1..114 350.1.13.10 4.2.7.2.686 [id number] [facility] 2021-07-25 00:00:00 2021-07-25 00:00:00 Orders Only Doctor Unassigned, [place] [facility] 1.840.114 350.1.13.10 4.2.7.2.686 [id number] [facility] 2021-07-17 10:15:00 2021-07-17 10:15:00 Outpatient R ANNA CALZADA [facility] [id number] [facility] 2021-07-13 00:00:00 2021-07-13 00:00:00 OFFICE VISIT ESTAB PT LEVEL 4 STLMLC STLMLC [id number] [facility] 2021-06-30 10:00:00 2021-06-30 10:15:00 Hides Inspector Visit Lab, Ang - Db [facility] 1.2.840.114 350.1.13.10 4.2.7.2.686 [id number] [facility] 2021-06-30 10:00:00 2021-06-30 10:00:00 Outpatient R ANNA CALZADA [facility] [id number] [facility] 2021-06-30 08:45:00 2021-06-30 08:45:00 Outpatient R [facility] [id number] [facility] 2021-06-24 00:00:00 2021-06-24 00:00:00 Refill Anna [facility]ada [facility] 1.2.840.114 350.1.13.10 4.2.7.2.686 [id number] [facility] 2021-06-23 13:00:00 2021-06-23 13:56:11 Office Visit Anna Calzada [facility] 1.2.840.114 350.1.13.10 4.2.7.2.686 [id number] [facility] 2021-06-23 13:00:00 2021-06-23 13:56:11 Outpatient R ANNA CALZADA [facility] [id number] [facility] 2021-06-23 13:00:00 2021-06-23 13:00:00 Outpatient R ZHENG ANNA [facility] [id number] [facility] 2021-06-23 00:00:00 2021-06-23 00:00:00 Orders Only Doctor Unassigned, [place] [facility] 1.2.840.114 350.1.13.10 4.2.7.2.686 [id number] [facility] 2021-05-24 00:00:00 2021-05-24 00:00:00 (TEL) STLMLC STLMLC [id number] [facility] 2021-05-09 13:00:00 2021-05-09 13:00:00 Outpatient LUCIA MORGAN [facility] [id number] [facility] 2021-05-09 00:00:00 2021-05-09 00:00:00 (TEL) STLMLC STLMLC [id number] [facility] 2021-03-29 07:40:00 2021-03-29 07:40:00 Outpatient YISSEL_PRETTYI GRAHAM [facility] [id number] [facility] 2021-03-28 00:00:00 2021-03-28 00:00:00 OFFICE VISIT EST PT LEVEL 3 STLMLC STLMLC [id number] [facility] 2021-01-03 00:00:00 2021-01-03 00:00:00 OFFICE VISIT ESTAB PT LEVEL 4 STLMLC STLMLC [id number] [facility] 2020-12-19 00:00:00 2020-12-19 00:00:00 OFFICE VISIT EST PT LEVEL 3 STLMLC STLMLC [id number] [facility] 2020-12-19 00:00:00 2020-12-19 00:00:00 (TEL) STLMLC STLMLC [id number] [facility] 2020-12-05 00:00:00 2020-12-05 00:00:00 PREV VISIT EST AGE 18-39 STLMLC STLMLC [id number] [facility] 2020-11-02 00:00:00 2020-11-02 00:00:00 OFFICE VISIT EST PT LEVEL 3 STLMLC STLMLC [id number] [facility] 2020-10-31 00:00:00 2020-10-31 00:00:00 (TEL) STLMLC STLMLC [id number] [facility] 2020-10-31 00:00:00 2020-10-31 00:00:00 OFFICE VISIT ESTAB PT LEVEL 1 STLMLC STLMLC [id number] [facility] 2020-10-18 00:00:00 2020-10-18 00:00:00 (TEL) STLMLC STLMLC [id number] [facility] 2020-08-15 00:00:00 2020-08-15 00:00:00 Outpatient STLMLC STLMLC [id number] [facility] 2020-07-10 01:05:00 2020-07-10 01:05:00 Outpatient SCHAUBROECK _L [facility] [id number] 2020-07-06 00:00:00 2020-07-06 00:00:00 Outpatient STLMLC STLMLC [id number] [facility] 2020-06-06 00:00:00 2020-06-06 00:00:00 Outpatient STLMLC STLMLC [id number] [facility] 2020-06-06 00:00:00 2020-06-06 00:00:00 Outpatient STLMLC STLMLC [id number] [facility] 2020-06-05 01:03:00 2020-06-05 01:03:00 Outpatient SCHAUBROECK _L [facility] [id number] [facility] 2020-05-24 00:00:00 2020-05-24 00:00:00 Patient Outreach Colten Escobar [facility] 1.2.840.114 350.1.13.10 4.2.7.2.686 [id number] [facility] 2020-05-01 01:03:00 2020-05-01 01:03:00 Outpatient SCHAUBROECK _L [facility] [id number] [facility] 2020-04-25 04:16:00 2020-04-25 04:16:00 Outpatient SCHAUBROECK _L [facility] [id number] [facility] 2020-04-25 00:00:00 2020-04-25 00:00:00 Kimber knight, [facility]-: [address] [place] [address], [address] [place] [id number] , Ph. [facility] [id number] [facility] 2020-04-25 00:00:00 2020-04-25 00:00:00 Outpatient Kimber Powell [facility] [id number] 2020-03-26 17:03:18 2020-03-26 17:23:18 Laboratory Only Lab, Adc [facility] Nirali Landrum [facility] 1.2.840.114 350.1.13.10 4.2.7.2.686 [id number] [facility] 2020-03-26 17:00:00 2020-03-26 17:00:00 Outpatient JANNET KEY [facility] [id number] [facility] 2020-03-22 00:00:00 2020-03-22 00:00:00 Outpatient STLMLC STLMLC [id number] [facility] 2020-03-16 00:00:00 2020-03-16 00:00:00 Outpatient STLMLC STLMLC [id number] [facility] 2020-03-02 00:00:00 2020-03-02 00:00:00 Outpatient STLMLC STLMLC [id number] [facility] 2020-02-23 00:00:00 2020-02-23 00:00:00 Outpatient STLMLC STLMLC [id number] [facility] 2020-02-22 00:00:00 2020-02-22 00:00:00 Outpatient STLMLC STLMLC [id number] [facility] 2020-02-16 00:00:00 2020-02-16 00:00:00 Outpatient STLMLC STLMLC [id number] [facility] 2020-02-06 17:38:46 2020-02-06 17:53:46 Laboratory Only Lab, [facility] ..840.114 350.1.13.10 4.2.7.2.686 [id number] [facility] 2020-02-06 17:30:00 2020-02-06 17:30:00 Outpatient ARIA RIVERO [facility] [id number] [facility] 2020-02-03 00:00:00 2020-02-03 00:00:00 Outpatient STLMLC STLMLC [id number] [facility] 2020-01-25 18:37:49 2020-01-25 18:46:35 Laboratory Only Lab, [facility] ..840.114 350.1.13.10 4.2.7.2.686 [id number] [facility] 2020-01-25 18:40:00 2020-01-25 18:40:00 Outpatient uY LANDRUM [facility] [id number] [facility] 2020-01-04 00:00:00 2020-01-04 00:00:00 Outpatient STLMLC STLMLC [id number] [facility] 2019-07-24 10:30:00 2019-07-24 10:30:00 Outpatient R AILIN SPENCER [facility] [id number] [facility] 2019-06-26 09:38:05 2019-06-26 10:31:40 Office Visit Ailin Spencer [facility] 1.2.840.114 350.1.13.10 4.2.7.2.686 [id number] [facility] 2019-06-26 09:30:00 2019-06-26 09:30:00 Outpatient R AILIN SPENCER [facility] [id number] [facility] 2019-06-26 00:00:00 2019-06-26 00:00:00 Orders Only Doctor Unassigned, [place] [facility] 1.2.840.114 350.1.13.10 4.2.7.2.686 [id number] [facility] 2019-06-18 00:00:00 2019-06-18 00:00:00 Telephone Ailin Spencer Camille [facility] 1.2.840.114 350.1.13.10 4.2.7.2.686 [id number] [facility] 2018-09-12 11:15:00 2018-09-12 11:15:[address] [facility] [facility] [id number] 2018-08-14 11:15:00 2018-08-14 11:15:[address] [facility] [place] [facility] [id number] [facility] 2018-05-19 10:30:00 2018-05-19 10:30:[address] [facility] [facility] [place] [facility] [id number] [facility] 2018-03-18 08:00:00 2018-03-18 08:00:[address] [place] [facility] [id number] [facility] 2018-02-21 11:35:00 2018-02-21 11:35:00 Outpatient [facility] [id number] [facility] 2018-02-13 13:13:00 2018-02-13 13:13:00 Outpatient [facility] [id number] [facility] 2018-02-13 10:15:00 2018-02-13 10:15:00 Outpatient [facility] [id number] [facility] Results Test Description Test Time Test Comments Results Resul t Comments Source XR KUB 2024-04-2 6 22:39:17 EXAM: XR KUB COMPARISON: None HISTORY: 33 years old Female with constipation x 3 days FINDINGS: Unremarkable bowel gas pattern. Small to moderate stool is noted in thedescending colon. No radiopaque calculi. A couple of round calcifications in the pelvis favorto represent phleboliths. No acute osseous abnormality is identified. [facility] [id number] 15:50:00 * Test Item Value Reference Range [...] = ?17 ml. Results reported to provider. [facility] [id number] 15:50:00 * Test Item Value Reference Range [...] = ?17 ml. Results [facility] to provider. [facility] [id number] 15:50:00 * Test Item Value Reference Range [...] = ?17 ml. Results reported to provider. [facility] [id number] 19:22:00* Test Item Value Reference Range Interpretation Comme nts POCT PREG (test code = 1605) Negative On board controls acceptable with C Line (test code = 3574) Yes POCT PREG LOT # (test code = 3575) POCT PREG TEST DATE ( test code = 3576) [facility] [id number] 19:22:00* Test Item Value Reference Range Interpretation Comme nts POCT PREG (test code = 1605) Negative On board controls acceptable with C Line (test code = 3574) Yes POCT PREG LOT # (test code = 3575) POCT PREG TEST DATE ( test code = 3576) [facility]-19[facility] Ag [Presence] in Respiratory specimen by Rapid [id number] 13:34:00* Test Item Value Reference Range Interpretation Comme nts SARS CoV 2 (test code = SARS CoV 2) [facility] AntigenSARS-COV 2 Antigen
[2024-02-13] MEDS ORDERED: KETOROLAC 30 MG/ML INJ ONE (16:49)
--- NOTE | 2024-02-13 17:00 | RAD REPORT ---
EXAMINATION: ONE VIEW CHEST XR CLINICAL INDICATION: CHEST PAIN TECHNIQUE: Frontal chest projection is submitted. Examination is limited by patient positioning and t echnique. COMPARISON: 05/15/2018 FINDINGS: The lungs are well inflated and clear. The heart is normal in size. No displaced fractures identified . IMPRESSION: No acute intrathoracic abnormalities.
--- NOTE | 2024-02-13 17:14 | RAD REPORT ---
EXAM: Right upper quadrant ultrasound. CLINICAL HISTORY: ruq abd ttp COMPARISON: None. FINDINGS: Gallbladder: Normal. Bile ducts: No intrahepatic or extrahepatic biliary dilatation. Common bile duct measures 5 mm. Limited imaging of the liver shows no concerning finding. IMPRESSION: Unremarkable exam.
[2024-02-13 17:31] LABS: Absolute Lymphocytes (CBC) 1.8 K/uL (0.7-4.9); Absolute Monocytes 0.5 K/uL (0.1-1.3); Basophils % 0.7 % (0-1.3); Eosinophils % 0.4 % (0-4.4); Hematocrit 40.5 % (36.0-45.0); Hemoglobin 13.8 g/dL (12.0-15.0); MCH 30.5 pg (27.0-35.0); MCHC 34.1 g/dL (32.0-36.0); MCV 89.4 fL (80-100); MPV 9.4 fL (7.6-11.3); Monocytes % 7.6 % (3.3-12.3); Neutrophils % 63.3 % (41.7-73.7); Nucleated Red Blood Cells % 0.1 % (0-0); Platelets 170 thou/uL (152-406); RBC Red Blood Cell Count 4.52 M/uL (3.86-4.86); Red Cell Distribution Width 12.7 % (12.1-15.2)
[2024-02-13 17:35] LABS: Specific Gravity 1.029 (1.005-1.030)
[2024-02-13 17:44] LABS: Specific Gravity 1.029 (1.005-1.030); Sqamous Epithelial <5 /HPF (None Seen); Urine Bacteria None Seen /HPF (<20); Urine Bilirubin NEGATIVE (Negative); Urine Blood Negative (Negative); Urine Clarity Clear (Clear); Urine Color Yellow (Yellow); Urine Culture Reflex Order NOT NEEDED; Urine Glucose NEGATIVE (Negative); Urine Ketones 4+ (Over) (Negative); Urine Microscopic Reflex YN ORDER UMIC; Urine Mucus 1+ /HPF (None Seen); Urine Nitrite NEGATIVE (Negative); Urine Protein 1+ (Negative); Urine RBC <5 /HPF (None Seen); Urine Urobilinogen Normal (Normal); Urine WBC <5 /HPF (<5); Urine pH 7.5 (5.0-7.0)
[2024-02-13 17:47] LABS: ALT/SGPT 16 U/L (13-56); Albumin 4.3 g/dL (3.4-5.0); Albumin/Globulin Ratio 1.6 (1.1-1.8); Alkaline Phosphatase 36 U/L (45-117); Anion Gap 8.5 mEq/L (5.0-15.0); BUN Blood Urea Nitrogen 9 mg/dL (7-18); Bicarbonate 23 mEq/L (21-32); Bilirubin Total 1.1 mg/dL (0.2-1.0); Globulin 2.7 g/dL (2.3-3.5); Glomerular Filtration Rate 119 ml/min (=/>90); Glucose Level 86 mg/dL (74-106); Lipase 48 U/L (13-75); Potassium 3.5 mEq/L (3.5-5.1); Sodium Level 136 mEq/L (136-145)
[2024-02-13 18:09] LABS: AST/SGOT < 10 U/L (15-37)
--- NOTE | 2024-02-13 19:49 | RAD REPORT ---
EXAMINATION: Transvaginal OB COMPARISON: None. HISTORY: vaginal bleeding, unk last period, pos preg TECHNIQUE: Real-time ultrasound was performed through the pelvis. A transvaginal scan was performed t o better visualize the intrauterine contents and adnexa. FINDINGS: There is a single living intrauterine . Cardiac activity measured 117 BPM. There is no visible subchorionic hemorrhage. Both ovaries are visualized and appear unremarkable. There is no free fluid in the cul-de-sac. Measurements and Calculations: [place] rump length 5 mm, consistent with a sonographic age of 6 weeks, 1 days. Estimated date of deli very is 10/02/2024 IMPRESSION: Single living intrauterine , with a composite sonographic age of 6 weeks, 1 days.
--- NOTE | 2024-02-13 19:58 | ER ---
Nurse's Notes [facility] Name: Marilyn Dotson Age: 34 yrs Sex: Female : 1990 Arrival Date: 02/13/2024 Time: 16:20 Bed 21 Private MD: Diagnosis: Costochondritis;6 Weeks Presentation: 02/12 16:26 Chief complaint: Patient states: chest pain off and on since 1230, right side hurts and ko1 RUQ pain, some shortness of breath when walking but ok when sitting down. Coronavirus screen: At this time, the client does not indicate any symptoms associated with coronavirus-19. Ebola Screen: No symptoms or risks identified at this time. Initial Sepsis Screen: Does the patient meet any 2 criteria? No. Patient's initial sepsis screen is negative. Does the patient have a suspected source of infection? No. Patient's initial sepsis screen is negative. Risk Assessment: Do you want to hurt yourself or someone else? Patient reports no desire to harm self or others. Onset of symptoms was February 13, 2024. 16:26 Method Of Arrival: Ambulatory ko1 16:26 Acuity: RAMONA 3 ko1 Triage Assessment: 16:28 General: Appears in no apparent distress. Behavior is cooperative, appropriate for age, ko1 anxious. Pain: Complains of pain in anterior aspect of right lateral abdomen and right upper quadrant and chest. 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 - Infectious Disease History:: Denies. - Social history:: Smoking status: Patient denies any tobacco usage or history of. Screenin:35 [facility] ED Fall Risk Assessment (Adult) History of falling in the last 3 months, rs5 including since admission No falls in past 3 months (0 pts) Confusion or Disorientation No (0 pts) Intoxicated or Sedated No (0 pts) Impaired Gait No (0 pts) Mobility Assist Device Used No (0 pt) Altered Elimination No (0 pt) Score/Fall Risk Level 0 - 2 = Low Risk Oriented to surroundings, Maintained a safe environment. Abuse screen: Denies threats or abuse. Nutritional screening: No deficits noted. Tuberculosis screening: No symptoms or risk factors identified. Assessment: 16:35 General: Appears in no apparent distress. uncomfortable, Behavior is calm, cooperative. rs5 Pain: Complains of pain in chest Pain currently is 6 out of 10 on a pain scale. Quality of pain is described as aching, Is continuous. Neuro: Level of Consciousness is awake, alert, obeys commands, Oriented to person, place, time, situation. Cardiovascular: Patient's skin is warm and dry. Respiratory: Airway is patent Respiratory effort is even, unlabored, Respiratory pattern is regular, symmetrical. GI: Abdomen is round non-distended, Abd is soft and non tender X 4 quads. : No signs and/or symptoms were reported regarding the genitourinary system. EENT: No signs and/or symptoms were reported regarding the EENT system. Derm: Skin is intact, Skin is pink, warm \T\ dry. Musculoskeletal: Range of motion: intact in all extremities. 17:41 Reassessment: Patient and/or family updated on plan of care and expected duration. Pain rs5 level reassessed. Patient is alert, oriented x 3, equal unlabored respirations, skin warm/dry/pink. 18:34 Reassessment: Patient and/or family updated on plan of care and expected duration. Pain rs5 level reassessed. Patient is alert, oriented x 3, equal unlabored respirations, skin warm/dry/pink. Vital Signs: 16:26 BP 111 / 74; Pulse 103; Resp 18; Temp 97.8; Pulse Ox 100% on R/A; ko1 17:11 BP 115 / 77; Pulse 80; Resp 17; Pulse Ox 98% on R/A; rs5 19:00 BP 111 / 67; Pulse 89; Resp 18; Pulse Ox 100% on R/A; al5 ED Course: 16:26 Patient arrived in ED. ra3 16:26 Bari Jenkins MD is Attending Physician. ec2 16:28 Triage completed. ko1 16:28 Arm band placed on right wrist. Patient placed in an exam room, on a stretcher, on ko1 bus driver/monitor, on pulse oximetry, Patient notified of wait time. 16:35 Patient has correct armband on for positive identification. Placed in gown. Bed in low rs5 position. Call light in reach. Side rails up X2. 16:35 No provider procedures requiring assistance completed. rs5 16:48 Tommy Han, RN is Primary Nurse. rs5 16:51 CXR XRAY In Process Unspecified. EDMS 17:05 Missed attempt(s): 20 gauge in left antecubital area. 22 gauge Bleeding controlled, am7 band aid applied, catheter tip intact. 17:06 Warm blanket given. Verbal reassurance given. am7 17:10 US Abdomen Limited In Process Unspecified. EDMS 17:25 Inserted saline lock: 22 gauge in left forearm, using aseptic technique. Blood am7 collected. Flushed with 10 mL NS. 17:26 EKG done, by ED staff, reviewed by Bari Jenkins MD. am7 19:35 US Transvaginal Ob In Process Unspecified. EDMS 21:25 Patient did not have IV access during this emergency room visit. vc1 Administered Medications: 16:50 Drug: Ketorolac IVP 15 mg IVP once Route: IVP; Site: left antecubital; rs5 21:14 Follow up: Response: No adverse reaction; Pain is decreased al5 Medication: 17:10 VIS not applicable for this client. rs5 Outcome: 19:58 Discharge ordered by . ec2 21:25 Discharged to home ambulatory, vc1 21:25 Condition: good 21:25 Discharge instructions given to patient, Instructed on discharge instructions, follow up and referral plans. Demonstrated understanding of instructions, follow-up care, 21:25 Patient left the ED. vc1 Signatures: Dispatcher [employer] EDMS Nola Lazaro RN RN vc1 Leyda Weller RN RN ko1 Tommy Han, RN RN rs5 Bari Jenkins MD MD ec2 Lazara Martinez ra3 Carmelita Baeza RN RN al5 Linda Espinoza am7
--- NOTE | 2024-02-13 19:58 | EDPHYS ---
Physician Documentation [facility] Name: Marilyn Dotson Age: 34 yrs Sex: Female : 1990 Arrival Date: 02/13/2024 Time: 16:20 Bed 21 Private MD: ED Physician Bari Jenkins HPI: 02/12 16:52 This 34 yrs old Female presents to ER via Ambulatory with complaints of Chest ec2 Pain. 16:57 Patient arrives today for evaluation of right-sided chest pain. Patient reports that ec2 she was experiencing right-sided chest pain with no specific cause. Patient reports no nausea or vomiting, reports that she also has pains in the right upper abdomen. Denies any previous abdominal surgeries. No significant medical problems.. 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 - Infectious Disease History:: Denies. - Social history:: Smoking status: Patient denies any tobacco usage or history of. ROS: 16:53 Constitutional: as per hpi ec2 Exam: 16:57 Constitutional: GEN: NAD Head: atraumatic Eyes: EOMI Ears: External ears are ec2 normal. CV: Tachycardia LUNGS: no respiratory distress ABD: non-distended SKIN: no evidence of rashes MSK: no evidence of trauma, reproducible right upper chest wall TTP without deformities or crepitus appreciated. Vital Signs: 16:26 BP 111 / 74; Pulse 103; Resp 18; Temp 97.8; Pulse Ox 100% on R/A; ko1 17:11 BP 115 / 77; Pulse 80; Resp 17; Pulse Ox 98% on R/A; rs5 19:00 BP 111 / 67; Pulse 89; Resp 18; Pulse Ox 100% on R/A; al5 MDM: 16:31 Medical Screening Exam initiated ec2 16:52 Data reviewed: vital signs, nurses notes. ED course: EKG independently reviewed and ec2 interpreted by me, shows normal sinus rhythm, rate of 93, no acute ST segment elevations, intervals are nonactionable.. 16:57 ED course: Patient arrives today for evaluation of chest pain and right upper abdomen ec2 pain. Examination is revealing for slight tachycardia, MSK findings as above. Will obtain cardiac workup as well as ultrasonography. Differential diagnosis includes costochondritis, ACS, electrolyte disturbances/arrhythmia, gallbladder pathology.. 18:48 ED course: Lab work remarkable for positive . Further discussion with patient ec2 indicates that she has been having some vaginal bleeding. States that she is been having irregular periods since 2021 when she came off oral contraceptive. Patient reports she has been having no significant abdominal pain or cramping. Patient reports that she is unaware of her blood type. Will obtain ABO Rh and will also obtain ultrasonography of the uterus to evaluate for and possible complication.. 19:57 ED course: Ultrasound shows positive IUP, patient is ABO Rh+, will discharge home have ec2 the patient follow-up with OB. Return precautions given.. 02/12 16:29 Order name: CBC with Diff; Complete Time: 17:39 ec2 02/12 16:29 Order name: CMP; Complete Time: 18:12 ec2 02/12 16:29 Order name: Lipase; Complete Time: 18:12 ec2 02/12 16:29 Order name: Test, Urine; Complete Time: 17:39 ec2 02/12 16:29 Order name: Urinalysis w/ reflexes; Complete Time: 17:52 ec2 02/12 17:39 Order name: Test, Serum; Complete Time: 18:14 ec2 02/12 18:26 Order name: Abo/rh Typing; Complete Time: 19:20 ec2 02/12 18:26 Order name: HCG-Quantitative; Complete Time: 19:31 ec2 02/12 19:55 Order name: ABO/RH no charge; Complete Time: 19:57 EDMS 02/12 16:29 Order name: US Abdomen Limited; Complete Time: 17:15 ec2 02/12 16:29 Order name: CXR XRAY; Complete Time: 17:06 ec2 02/12 18:26 Order name: US Transvaginal Ob; Complete Time: 19:57 ec2 02/12 16:29 Order name: IV Saline Lock; Complete Time: 17:25 ec2 02/12 16:29 Order name: Labs collected and sent; Complete Time: 17:25 ec2 02/12 16:29 Order name: EKG - Nurse/Tech; Complete Time: 17:12 ec2 02/12 17:40 Order name: Misc. Order: red top for preg serum?; Complete Time: 18:10 ec2 Administered Medications: 16:50 Drug: Ketorolac IVP 15 mg IVP once Route: IVP; Site: left antecubital; rs5 21:14 Follow up: Response: No adverse reaction; Pain is decreased al5 Disposition Summary: 02/13/24 19:58 Discharge Ordered Notes: Location: Home ec2 Condition: Stable ec2 Diagnosis - Costochondritis ec2 - 6 Weeks ec2 Followup: ec2 - With: Private Physician - When: - Reason: Re-evaluation by your physician Discharge Instructions: - Discharge Summary Sheet ec2 - Costochondritis, [id number] ec2 - First Trimester of , Euol-wy-Hkgl ec2 Forms: - Work release form vc1 - Medication Reconciliation Form ec2 - Antibiotic Education ec2 - Prescription Opioid Use ec2 - Patient Portal Instructions ec2 - Leadership Thank You Letter ec2 Signatures: Dispatcher [employer] EDLeyda Singh RN RN ko1 Tommy Han RN RN rs5 Bari Jenkins MD MD ec2 Carmelita Baeza RN al5 Corrections: (The following items were deleted from the chart) 16:29 16:29 CBC+H.LAB.BRZ ordered. EDMS EDMS 16:29 16:29 COMPREHENSIVE METABOLIC PANEL+C.LAB.BRZ ordered. EDMS EDMS 16:29 16:29 LIPASE+C.LAB.BRZ ordered. EDMS EDMS 16:29 16:29 Test, Urine+UC.LAB.BRZ ordered. EDMS EDMS 16:29 16:29 Urinalysis+U.LAB.BRZ ordered. EDMS EDMS 16:29 16:29 Abdomen Limited+US.RAD.BRZ ordered. EDMS EDMS 16:29 16:29 Chest Single View+RAD.RAD.BRZ ordered. EDMS EDMS 16:58 16:57 Constitutional: GEN: NAD Head: atraumatic Eyes: EOMI Ears: External ears are ec2 normal. CV: regular rate LUNGS: no respiratory distress ABD: non-distended SKIN: no evidence of rashes MSK: no evidence of trauma, reproducible right upper chest wall TTP without deformities or crepitus appreciated. ec2
[2024-02-13 21:49] VITALS: TEMP 97.8
[2024-02-13 22:00] VITALS: BP 111/67; O2SAT 100
--- NOTE | 2024-02-14 15:46 | EKG ---
Test Date: 2024-02-13 Test Time: 16:51:07 [employer]: AM MEASUREMENT RESULTS: Intervals: Rate: 93 WY: 122 QRSD: 78 QT: 366 QTc: 455 [place]: P: 64 WY: 122 QRS: 76 T: 47 INTERPRETIVE STATEMENTS: Normal sinus rhythm Normal ECG No previous ECG available for comparison Electronically Signed On 02-14-24 15:45:10 HEAD OF MEASUREMENT [employer] INSIGHTS by Miguelangel Ron
== END 2024-02-13 21:25 | disposition home or self-care (01) ==
LOC: ER 16:20
DX: M94.0 Chondrocostal junction syndrome [Tietze] (principal); R10.11 Right upper quadrant pain; F41.9 Anxiety disorder, unspecified; G47.00 Insomnia, unspecified; Z33.1 Pregnant state, incidental; Z3A.01 Less than 8 weeks gestation of pregnancy
CPT/HCPCS: 36415; 71045; 76705; 76817; 80053; 81001; 81025; 83690; 84702; 84703; 85025; 86900; 86901; 93005; 96374; 99284

== ENCOUNTER 2024-12-21 10:55 | Emergency (ER) | payer BC ==
--- OUTSIDE RECORDS SUMMARY | 2024-12-21 11:01 | XMS REPORT | Continuity of Care Document ---
Author Name Unknown Address [address] [facility]. [address] [place] [address] Organization [facility] [place] Address [address] [facility]. 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 Name Role Phone Quinn Quintero Primary Care Physician [phone] Quinn Quintero Attending Clinician Unavailable Stephanie Do PA-C Attending Clinician [phone] Unknown, Attending Attending Clinician Unavailab STEPHANIE Burden Attending Clinician Unavailable JENARO NAVARRO Attending Clinician Unavailable Jenaro Martinez Attending Clinician [phone] Unknown, Attending Attending Clinician Unavailab NORMA Raya Attending Clinician Unavailable NORMA GALLEGOS Attending Clinician Unavailable MAXWELL PICHARDO Attending Clinician Unavailable CALIN CHACON Attending Clinician Unavailabl e Doctor Unassigned, [place] Attending Clinician U navailMIKE Mcclain Attending Clinician Unavaila MIKE Godfrey Attending Clinician Unavaila ble UNKNOWN, ATTENDING Attending Clinician Unavailab ANNA Epstein Attending Clinician Unavailable YVONNE Attending Clinician Unavailable Anna Calzada MD Attending Clinician [phone] Lab, Ang - Db Attending Clinician Unavailable CAROLINE Attending Clinician Unavailable Shawn MACEDO Colten Felix Attending Clinician Kimber Powell Attending Clinician [phone] Lab, Adc Fam Pob I Attending Clinician Unavailab Jannet Hussein Attending Clinician [phone] JANNET LANDRUM Attending Clinician Unavailable Aria Nava Attending Clinician [phone] ARIA GRACIA Attending Clinician Unavailable AILIN SPENCER Attending Clinician Unavail able Akinseble WHAilin CRUZ Attending Clinician + YVONNE Admitting Clinician Unavailable CAROLINE Admitting Clinician Unavailable Payers Payer Name Policy Type Policy Number Effective Date Expirati on Date Source [facility] 6 [id number] 2023 00:00:00 [place] [address] [id number] 2020 00:00:00 [facility] ([facility] [id number] 2018 00:00:00 Problems Condition Name Condition Details Condition Category Status Onset Date Resolution Date Last Treatment Date Treating Clinician Comments Source Urge incontinen ce of urine Urge incontinen ce of urine Disease Active 06-19 00:00: 00 [facility] Chronic fatigue Chronic fatigue Disease Active 2021-03 0-14 00:00: 00 [facility] Myalgia, multiple sites Myalgia, multiple sites Disease Active 2021-03 0-14 00:00: 00 [facility] Hearing loss Hearing loss Disease Active 18 00:00: 00 [facility] Chronic constipati on Chronic constipati on Disease Active 18 00:00: 00 [facility] IUD strings lost IUD strings lost Disease Active 2016-03 0-20 00:00: 00 [facility] Presence of intrauteri ne contracept boby device Presence of intrauteri ne contracept boby device Disease Active 2015-03 2-16 00:00: 00 [facility] Dysmenorrh ea Dysmenorrh ea Disease Active 07-12 00:00: 00 [facility] BV (bacterial vaginosis) BV (bacterial vaginosis) Disease Active 07-12 00:00: 00 [facility] Vaginal yeast infection Vaginal yeast infection Disease Active 07-12 00:00: 00 [facility] Encounter for well woman exam with routine gynecologi cally exam Encounter for well woman exam with routine gynecologi cally exam Disease Active 07-12 00:00: 00 [facility] [id number] Anxiety Problem Active [facility] [id number] Tinnitus, left ear Problem Active [facility] [id number] Chronic Idiopathic Constipati on Problem Active [facility] Adult attention deficit disorder Adult attention deficit disorder Problem Active [facility] Insomnia Insomnia Problem Active Commo n [facility] [id number] Adult BMI 30.0-30.9 kg/sq m Problem Active [facility] [id number] Decreased hearing of left ear Problem Active [facility] [id number] FRANK (generaliz ed anxiety disorder) Problem Active [facility] Encounter for IUD removal Encounter for IUD removal Disease Resolve d 24 00:00: 00 2021-06-23 00:00:00 2021-06-23 13:58:47 [facility] Family planning, IUD (intrauter ine device) check/rein sertion/re moval Family planning, IUD (intrauter ine device) check/rein sertion/re moval Disease Resolve d 2014-03 00:00: 00 2015-07-13 00:00:00 2015-07-13 16:18:10 [facility] Contracept boby management Contracept boby management Disease Resolve d 06-27 00:00: 00 2015-02-08 00:00:00 2015-02-08 10:03:49 [facility] Allergies, Adverse Reactions, Alerts Allergy Name Allergy Type Status Severity Reaction(s) Onset Date Inactive Date Treating Clinician Comments Source NO KNOWN ALLERGIE S Drug Class Active [facility] Social History Social Habit Start Date Stop Date Quantity Comments Source History of Tobacco Use [facility] Sex Assigned At [facility] History SDOH Alcohol Frequency [facility] History SDOH Alcohol Std Drinks [facility] History SDOH Alcohol Binge [facility] Gender identity [facility] Alcoholic beverage intake 2024-02-14 00:00:00 2024-02-14 00:00:00 0 /d [facility] Alcohol intake 2023-03-26 00:00:00 2023-03-26 00:00:00 0 /d [facility] Exposure to SARS-CoV-2 (event) 2021-12-04 00:00:00 2021-12-14 16:19:00 Not sure [facility] Tobacco use and exposure 2021-12-14 00:00:00 2021-12-14 00:00:00 Smokeless tobacco non-user [facility] History of Social function 2021-06-23 00:00:00 2021-06-23 00:00:00 [facility] Alcohol Comment 2012-06-27 00:00:00 2012-06-27 00:00:00 socially [facility] Smoking Status Start Date Stop Date Source Never smoked tobacco [facility] Medications Ordered Medication Name Filled Medication Name Start Date Stop Date Current Medication? Ordering Clinician Indication Dosage Frequency Signature (SIG) Comments Components Source fluticasone propionate 50 mcg/actuati on nasal spray 03-27 00:00: 00 Yes [id number] 2{spray } Use 2 Sprays in each nostril in the morning. [facility] azelastine 137 mcg (0.1 %) nasal spray 03-27 00:00: 00 Yes [id number] 1{spray } Use 1 Mcnabb in each nostril in the morning and 1 Mcnabb in the evening. Use in each nostril as directed [facility] cetirizine 10 mg tablet 03-27 00:00: 00 Yes [id number] 10mg Take 1 tablet by mouth in the morning. [facility] bromphenira mine-pseudo ephedrine-D M (BROMFED DM) 2-30-10 mg/5 mL syrup 03-27 00:00: 00 Yes [id number] 5mL Take 5 mL by mouth 3 (three) times daily as needed for Cold symptoms or Cough. [facility] Linzess 72 MCG Linzess 72 MCG 09-22 00:00: 00 No QD Linzess 72 MCG lactulose 10 gram/15 mL oral solution 06-27 00:00: 00 07-03 04:59 :00 No [id number] 60mL Take 60 mL by mouth in the morning for 5 days. Do not take if loose stools. [facility] sulfamethox azole-trime thoprim 800-160 mg per tablet 10-15 00:00: 00 10-19 04:59 :00 No [id number] 1{tbl} Take 1 tablet by mouth in the morning and 1 tablet in the evening. Do all this for 3 days. [facility] zolpidem 10 mg tablet 09-05 00:00: 00 Yes TAKE ONE (1) TABLET(S) BY MOUTH ONCE A DAY AT BEDTIME NEEDED. [facility] TRAZODONE HCL (TRAZODONE ORAL) 2021-03 16:38: 31 Yes Take by mouth. [facility] norgestimat e-ethinyl estradioL 0.18/0.215/ 0.25 mg-25 mcg tablet 2021-03 00:00: 00 Yes [id number] 1{tbl} Take 1 tablet by mouth in the morning. [facility] SERTraline 100 mg tablet 09-07 00:00: 00 03-27 00:00 :00 No 1 tablet [facility] dextroamphe tamine-amph etamine 30 mg tablet 09-07 00:00: 00 12-14 00:00 :00 No 1 tablet [facility] levonorgest reL (KYLEENA) IUD 1 Device -24 20:45: 00 07-25 19:44 :00 No [id number] 1{devic e} [facility] TRINTELLIX 10 mg Tab 5-12 00:00: 00 Yes [facility] TRAZODONE HCL (TRAZODONE ORAL) - 13:18: 26 Yes Take by mouth. [facility] levonorgest rel-ethinyl estradiol 0.1-20 mg-mcg per tablet - 00:00: 00 07-25 00:00 :00 No [id number] 1{tbl} Take 1 tablet by mouth daily. [facility] MYDAYIS 25 mg CT24 3-10 00:00: 00 07-25 00:00 :00 No 1{capsu le} Take 1 capsule by mouth every morning. [facility] dextroamphe tamine-amph etamine 30 mg tablet 1-25 00:00: 00 Yes 30mg Take 1 tablet by mouth in the morning and 1 tablet in the evening. [facility] Venlafaxine HCl ER 75 MG Venlafaxine HCl ER 75 MG - 00:00: 00 No 1{capsu le_with _food} QD Venlafaxin e HCl ER 75 MG Lactulose 10 GM/15ML Lactulose 10 GM/15ML 1-08 00:00: 00 No BID Lactulose 10 GM/15ML Vitamin B12 (Cyanocobal hernandez) Vitamin B12 (Cyanocobal hernandez) 7-12 00:00: 00 No 1000ug [facility] albuterol sulfate HFA 90 mcg/actuati on aerosol [...] inhalation route as needed for 30 days. [facility] alprazolam 1 mg tablet TAKE 1 TABLET BY MOUTH EVERY DAY. alprazolam 1 mg tablet TAKE 1 TABLET BY MOUTH EVERY DAY. No alprazolam 1 mg tablet TAKE 1 TABLET BY MOUTH EVERY DAY. [facility] etonogestre l 0.12 mg-ethinyl estradiol 0.015 mg/24 [...] 3 WEEKS THEN REMOVE FOR 1 WEEK [facility] prednisone 5 mg tablets in a dose pack Take 1 dose pk by oral route as directed for 6 days. prednisone 5 mg tablets in a dose pack Take 1 dose pk by oral route as directed for 6 days. No 1dose pk(s) prednisone 5 mg tablets in a dose pack Take 1 dose pk by oral route as directed for 6 days. [facility] traZODone HCl 150 MG traZODone HCl [...] No 1{table t} QD ALPRAZolam 1 MG trazodone 150 mg tablet TAKE 1 TABLET BY MOUTH EVERY DAY AT BEDTIME trazodone 150 mg tablet TAKE 1 TABLET BY MOUTH EVERY DAY AT BEDTIME No trazodone 150 mg tablet TAKE 1 TABLET BY MOUTH EVERY DAY AT BEDTIME [facility] Zithromax Z-Oj 250 mg tablet TAKE 2 [...] ORAL ROUTE ONCE DAILY FOR 4 DAYS [facility] Immunizations Ordered Immunization Name Filled Immunization Name Date Status Comments Source Rubella 2023-06-28 09:21:59 Completed [facility] TD, NOS 2023-06-28 09:21:59 Completed [facility] TDAP 2023-06-28 09:21:59 Completed [facility] HPV9 2023-06-28 09:21:59 Completed [facility] Influenza Virus Vaccine (3+ yrs) 2023-06-28 09:21:59 Completed [facility] Influenza Virus Vaccine Quad IM 3+ YRS 2023-06-28 09:21:59 Completed [facility] Influenza Virus Vaccine 2023-06-28 09:21:59 Completed [facility] Rubella 2023-06-28 09:00:00 Completed [facility] TD, NOS 2023-06-28 09:00:00 Completed [facility] TDAP 2023-06-28 09:00:00 Completed [facility] Influenza Virus Vaccine (3+ yrs) 2023-06-28 09:00:00 Completed [facility] Influenza Virus Vaccine Quad IM 3+ YRS 2023-06-28 09:00:00 Completed [facility] Influenza Virus Vaccine 2023-06-28 09:00:00 Completed [facility] HPV9 2023-06-28 09:00:00 Completed [facility] Rubella 2023-06-28 00:00:00 Completed [facility] TD, NOS 2023-06-28 00:00:00 Completed [facility] TDAP 2023-06-28 00:00:00 Completed [facility] HPV9 2023-06-28 00:00:00 Completed [facility] Influenza Virus Vaccine (3+ yrs) 2023-06-28 00:00:00 Completed [facility] Influenza Virus Vaccine Quad IM 3+ YRS 2023-06-28 00:00:00 Completed [facility] Influenza Virus Vaccine 2023-06-28 00:00:00 Completed [facility] Rubella 2022-10-15 00:00:00 Completed [facility] TD, NOS 2022-10-15 00:00:00 Completed [facility] TDAP 2022-10-15 00:00:00 Completed [facility] HPV9 2022-10-15 00:00:00 Completed [facility] Influenza Virus Vaccine (3+ yrs) 2022-10-15 00:00:00 Completed [facility] Influenza Virus Vaccine Quad IM 3+ YRS 2022-10-15 00:00:00 Completed [facility] Influenza Virus Vaccine 2022-10-15 00:00:00 Completed [facility] Rubella 2022-10-10 11:00:00 Completed [facility] TD, NOS 2022-10-10 11:00:00 Completed [facility] TDAP 2022-10-10 11:00:00 Completed [facility] Influenza Virus Vaccine (3+ yrs) 2022-10-10 11:00:00 Completed [facility] Influenza Virus Vaccine Quad IM 3+ YRS 2022-10-10 11:00:00 Completed [facility] Influenza Virus Vaccine 2022-10-10 11:00:00 Completed [facility] Rubella 2021-12-22 00:00:00 Completed [facility] TD, NOS 2021-12-22 00:00:00 Completed [facility] TDAP 2021-12-22 00:00:00 Completed [facility] HPV9 2021-12-22 00:00:00 Completed [facility] Influenza Virus Vaccine (3+ yrs) 2021-12-22 00:00:00 Completed [facility] Influenza Virus Vaccine Quad IM 3+ YRS 2021-12-22 00:00:00 Completed [facility] Influenza Virus Vaccine 2021-12-22 00:00:00 Completed [facility] Rubella 2021-08-05 00:00:00 Completed [facility] TD, NOS 2021-08-05 00:00:00 Completed [facility] TDAP 2021-08-05 00:00:00 Completed [facility] HPV9 2021-08-05 00:00:00 Completed [facility] Influenza Virus Vaccine (3+ yrs) 2021-08-05 00:00:00 Completed [facility] Influenza Virus Vaccine Quad IM 3+ YRS 2021-08-05 00:00:00 Completed [facility] Influenza Virus Vaccine 2021-08-05 00:00:00 Completed [facility] Influenza Virus Vaccine 2021-04-04 00:00:00 Completed [facility] Influenza Virus Vaccine 2021-04-04 00:00:00 Completed [facility] Influenza Virus Vaccine 2021-04-04 00:00:00 Completed [facility] Influenza Virus Vaccine 2021-04-04 00:00:00 Completed [facility] Influenza Virus Vaccine 2021-04-04 00:00:00 Completed [facility] Influenza Virus Vaccine 2021-04-04 00:00:00 Completed [facility] Influenza Virus Vaccine 2021-04-04 00:00:00 Completed [facility] Afluria single dose Afluria single dose 2020-02-16 15:38:[address] [facility] Afluria single dose Afluria single dose 2020-02-16 15:38:[address] [facility] Afluria single dose Afluria single dose 2020-02-16 15:38:[address] [facility] Influenza Virus Vaccine Quad IM 3+ YRS 2020-02-16 00:00:00 Completed [facility] Influenza Virus Vaccine Quad IM 3+ YRS 2020-02-16 00:00:00 Completed [facility] Influenza Virus Vaccine Quad IM 3+ YRS 2020-02-16 00:00:00 Completed [facility] Influenza Virus Vaccine Quad IM 3+ YRS 2020-02-16 00:00:00 Completed [facility] Influenza Virus Vaccine Quad IM 3+ YRS 2020-02-16 00:00:00 Completed [facility] Influenza Virus Vaccine Quad IM 3+ YRS 2020-02-16 00:00:00 Completed [facility] Influenza Virus Vaccine Quad IM 3+ YRS 2020-02-16 00:00:00 Completed Vitamin B12 (Cyanocobalamin) Vitamin B12 (Cyanocobalamin) 2018-09-12 11:41:[address] [facility] Vitamin B12 (Cyanocobalamin) Vitamin B12 (Cyanocobalamin) 2018-09-12 11:41:[address] [facility] Afluria Afluria 2017-12-09 09:50:[address] [facility] Afluria Afluria 2017-12-09 09:50:[address] [facility] [facility] Influenza Virus Vaccine (3+ yrs) 2017-12-09 00:00:00 Completed [facility] Influenza Virus Vaccine (3+ yrs) 2017-12-09 00:00:00 Completed [facility] Influenza Virus Vaccine (3+ yrs) 2017-12-09 00:00:00 Completed [facility] Influenza Virus Vaccine (3+ yrs) 2017-12-09 00:00:00 Completed [facility] Influenza Virus Vaccine (3+ yrs) 2017-12-09 00:00:00 Completed [facility] Influenza Virus Vaccine (3+ yrs) 2017-12-09 00:00:00 Completed [facility] Influenza, split virus, trivalent, preservative (3+ Yrs) (Afluria) 2017-12-09 00:00:00 Completed HPV9 2017-01-04 00:00:00 Completed [facility] HPV9 2017-01-04 00:00:00 Completed [facility] HPV9 2017-01-04 00:00:00 Completed [facility] HPV9 2017-01-04 00:00:00 Completed [facility] HPV9 2017-01-04 00:00:00 Completed [facility] HPV9 2017-01-04 00:00:00 Completed [facility] HPV9 2017-01-04 00:00:00 Completed [facility] HPV9 2017-01-04 00:00:00 Completed [facility] TDAP 2015-07-13 00:00:00 Completed [facility] HPV9 2015-07-13 00:00:00 Completed [facility] TDAP 2015-07-13 00:00:00 Completed [facility] HPV9 2015-07-13 00:00:00 Completed [facility] TDAP 2015-07-13 00:00:00 Completed [facility] HPV9 2015-07-13 00:00:00 Completed [facility] TDAP 2015-07-13 00:00:00 Completed [facility] HPV9 2015-07-13 00:00:00 Completed [facility] TDAP 2015-07-13 00:00:00 Completed [facility] HPV9 2015-07-13 00:00:00 Completed [facility] TDAP 2015-07-13 00:00:00 Completed [facility] HPV9 2015-07-13 00:00:00 Completed [facility] TDAP 2015-07-13 00:00:00 Completed [facility] HPV9 2015-07-13 00:00:00 Completed Rubella 2011-02-01 00:00:00 Completed [facility] Rubella 2011-02-01 00:00:00 Completed [facility] Rubella 2011-02-01 00:00:00 Completed [facility] Rubella 2011-02-01 00:00:00 Completed [facility] Rubella 2011-02-01 00:00:00 Completed [facility] Rubella 2011-02-01 00:00:00 Completed [facility] Rubella 2011-02-01 00:00:00 Completed [facility] Td 2004-03-04 00:00:00 Completed [facility] Td 2004-03-04 00:00:00 Completed [facility] Td 2004-03-04 00:00:00 Completed [facility] TD, NOS 2004-03-04 00:00:00 Completed [facility] TD, NOS 2004-03-04 00:00:00 Completed [facility] TD, NOS 2004-03-04 00:00:00 Completed [facility] TD, NOS 2004-03-04 00:00:00 Completed Afluria (IIV4) - 3 years and older - SDS - 0.5mL Afluria (IIV4) - 3 years and older - SDS - 0.5mL Unknown Completed [facility] Afluria Afluria Unknown Completed [facility] Afluria (IIV4) - 3 years and older - SDS - 0.5mL Afluria (IIV4) - 3 years and older - SDS - 0.5mL Unknown Completed [facility] Afluria Afluria Unknown Completed [facility] Vital Signs Vital Name Observation Time Observation Value Comments S ource Systolic blood pressure 2024-03-27 21:32:00 110 mm[Hg] [facility] Diastolic blood pressure 2024-03-27 21:32:00 76 mm[Hg] [facility] Body temperature 2024-03-27 21:32:00 36.67 Laverne [facility] Respiratory rate 2024-03-27 21:32:00 18 /min [facility] Body height 2024-03-27 21:32:00 157.5 cm [facility] Body weight 2024-03-27 21:32:00 64.184 kg [facility] BMI 2024-03-27 21:32:00 25.88 kg/m2 [facility] Oxygen saturation in Arterial blood by Pulse oximetry 2024-03-27 21:32:00 100 /min [facility] Systolic blood pressure 2024-02-14 17:28:00 91 mm[Hg] [facility] Diastolic blood pressure 2024-02-14 17:28:00 68 mm[Hg] [facility] Heart rate 2024-02-14 17:28:00 98 /min [facility] Body temperature 2024-02-14 17:28:00 36.5 Laverne [facility] Respiratory rate 2024-02-14 17:28:00 16 /min [facility] Body weight 2024-02-14 17:28:00 67.767 kg [facility] BMI 2024-02-14 17:28:00 27.33 kg/m2 [facility] Oxygen saturation in Arterial blood by Pulse oximetry 2024-02-14 17:28:00 96 /min [facility] height 2023-09-18 08:40:00 64 [in_i] Commo n [facility] weight 2023-09-18 08:40:00 170 [lb_av] Comm on [facility] temperature 2023-09-18 08:40:00 98 [degF] Comm on [facility] bmi 2023-09-18 08:40:00 29.18 kg/m2 Comm on [facility] oximetry 2023-09-18 08:40:00 99 % Commo n [facility] blood pressure systolic 2023-09-18 08:40:00 114 mm[Hg] [facility] blood pressure diastolic 2023-09-18 08:40:00 66 mm[Hg] [facility] Systolic blood pressure 2023-06-28 14:11:00 106 mm[Hg] [facility] Diastolic blood pressure 2023-06-28 14:11:00 71 mm[Hg] [facility] Heart rate 2023-06-28 14:11:00 98 [facility] 2023-06-28 14:11:00 37 Laverne [facility] Respiratory rate 2023-06-28 14:11:00 20 /min [facility] Body height 2023-06-28 14:11:00 157.5 cm [facility] weight 2023-06-28 14:11:00 79.379 kg [facility] BMI 2023-06-28 14:11:00 32.01 kg/m2 [facility] Oxygen saturation in Arterial blood by Pulse oximetry 2023-06-28 14:11:00 100 /min [facility] Systolic blood pressure 2022-10-10 16:07:00 122 mm[Hg] [facility] Diastolic blood pressure 2022-10-10 16:07:00 78 mm[Hg] [facility] Heart rate 2022-10-10 16:07:00 98 /min [facility] Body temperature 2022-10-10 16:07:00 37.06 Laverne [facility] Respiratory rate 2022-10-10 16:07:00 18 /min [facility] Body height 2022-10-10 16:07:00 157.5 cm [facility] Body weight 2022-10-10 16:07:00 76.204 kg [facility] BMI 2022-10-10 16:07:00 30.73 kg/m2 [facility] Oxygen saturation in Arterial blood by Pulse oximetry 2022-10-10 16:07:00 98 /min [facility] Systolic blood pressure 2022-06-19 16:46:00 116 mm[Hg] [facility] Diastolic blood pressure 2022-06-19 16:46:00 77 mm[Hg] [facility] Heart rate 2022-06-19 16:46:00 84 /min [facility] Respiratory rate 2022-06-19 16:46:00 18 /min [facility] Body height 2022-06-19 16:46:00 157.5 cm [facility] Body weight 2022-06-19 16:46:00 76.658 kg [facility] BMI 2022-06-19 16:46:00 30.91 kg/m2 [facility] Systolic blood pressure 2021-12-14 21:36:00 112 mm[Hg] [facility] Diastolic blood pressure 2021-12-14 21:36:00 87 mm[Hg] [facility] Heart rate 2021-12-14 21:36:00 98 /min [facility] Body temperature 2021-12-14 21:36:00 36.94 Laverne [facility] Respiratory rate 2021-12-14 21:36:00 16 /min [facility] Body height 2021-12-14 21:36:00 160 cm [facility] Body weight 2021-12-14 21:36:00 78.064 kg [facility] BMI 2021-12-14 21:36:00 30.49 kg/m2 [facility] Oxygen saturation in Arterial blood by Pulse oximetry 2021-12-14 21:36:00 98 /min [facility] height 2021-09-07 13:00:00 64 [in_i] Commo n [facility] weight 2021-09-07 13:00:00 175 [lb_av] Comm on [facility] temperature 2021-09-07 13:00:00 98 [degF] Comm on [facility] bmi 2021-09-07 13:00:00 30.04 kg/m2 Comm on [facility] blood pressure systolic 2021-09-07 13:00:00 116 mm[Hg] [facility] blood pressure diastolic 2021-09-07 13:00:00 76 mm[Hg] [facility] Systolic blood pressure 2021-07-25 18:49:00 119 mm[Hg] [facility] Diastolic blood pressure 2021-07-25 18:49:00 81 mm[Hg] [facility] Heart rate 2021-07-25 18:49:00 93 /min [facility] Body temperature 2021-07-25 18:49:00 37.06 Laverne [facility] Respiratory rate 2021-07-25 18:49:00 16 /min [facility] Body height 2021-07-25 18:49:00 160 cm [facility] Body weight 2021-07-25 18:49:00 77.111 kg [facility] BMI 2021-07-25 18:49:00 30.11 kg/m2 [facility] Oxygen saturation in Arterial blood by Pulse oximetry 2021-07-25 18:49:00 99 /min [facility] height 2021-07-13 11:20:00 64 [in_i] Commo n [facility] weight 2021-07-13 11:20:00 173.6 [lb_av] Co mmon [facility] temperature 2021-07-13 11:20:00 98.2 [degF] Com mon [facility] bmi 2021-07-13 11:20:00 29.8 kg/m2 Commo n [facility] oximetry 2021-07-13 11:20:00 97 % Commo n [facility] respiratory rate 2021-07-13 11:20:00 18 /min Common [facility] blood pressure systolic 2021-07-13 11:20:00 108 mm[Hg] Common [facility] blood pressure diastolic 2021-07-13 11:20:00 62 mm[Hg] [facility] height 2021-03-28 08:00:00 64 [in_i] Commo n [facility] weight 2021-03-28 08:00:00 175 [lb_av] Comm on [facility] temperature 2021-03-28 08:00:00 97 [degF] Comm on [facility] bmi 2021-03-28 08:00:00 30.04 kg/m2 Comm on [facility] blood pressure systolic 2021-03-28 08:00:00 130 mm[Hg] [facility] blood pressure diastolic 2021-03-28 08:00:00 72 mm[Hg] Common [facility] height 2021-01-03 11:10:00 64 [in_i] Commo n [facility] weight 2021-01-03 11:10:00 175 [lb_av] Comm on [facility] temperature 2021-01-03 11:10:00 98 [degF] Comm on [facility] bmi 2021-01-03 11:10:00 30.04 kg/m2 Comm on [facility] blood pressure systolic 2021-01-03 11:10:00 132 mm[Hg] Common [facility] blood pressure diastolic 2021-01-03 11:10:00 70 mm[Hg] [facility] height 2020-12-19 13:00:00 64 [in_i] Commo n [facility] weight 2020-12-19 13:00:00 175.4 [lb_av] Co mmon [facility] bmi 2020-12-19 13:00:00 30.1 kg/m2 Commo n [facility] height 2020-12-05 10:20:00 64 [in_i] Commo n [facility] weight 2020-12-05 10:20:00 175.4 [lb_av] Co [facility] temperature 2020-12-05 10:20:00 97.4 [degF] Com [facility] bmi 2020-12-05 10:20:00 30.1 kg/m2 Commo n [facility] oximetry 2020-12-05 10:20:00 100 % Commo n [facility] respiratory rate 2020-12-05 10:20:00 18 /min Common [facility] blood pressure systolic 2020-12-05 10:20:00 135 mm[Hg] Common [facility] blood pressure diastolic 2020-12-05 10:20:00 87 mm[Hg] Common [facility] height 2020-11-02 08:10:00 64 [in_i] Commo n [facility] weight 2020-11-02 08:10:00 176.3 [lb_av] Co on [facility] temperature 2020-11-02 08:10:00 98.1 [degF] Com mon [facility] bmi 2020-11-02 08:10:00 30.26 kg/m2 Comm on [facility] oximetry 2020-11-02 08:10:00 98 % Commo n [facility] respiratory rate 2020-11-02 08:10:00 17 /min [facility] blood pressure systolic 2020-11-02 08:10:00 125 mm[Hg] [facility] blood pressure diastolic 2020-11-02 08:10:00 80 mm[Hg] [facility] BP Diastolic 2020-04-25 00:00:00 81 mm[Hg] [facility] BP Systolic 2020-04-25 00:00:00 123 mm[Hg] [facility] Body Weight 2020-04-25 00:00:00 2992 [oz_av] [facility] Procedures Procedure Date / Time Performed Performing Clinicia n Source POCT MOLECULAR FLU 2024-02-14 17:32:00 Unknown, Attend ing [facility] POCT MOLECULAR STREP 2024-02-14 17:30:00 Unknown, Attdheeraj nelson [facility] XR KUB 2023-06-28 14:49:[address] [facility] URINE CULTURE 2022-10-10 17:15:00 Norma Gallegos [facility] ASSIGNMENT OF BENEFITS 2022-10-10 15:57:00 Docto r Unassigned, [place] [facility] POCT URINALYSIS AUTO 2022-10-10 15:50:[address] [facility] PATIENT FINANCIAL POLICY 2022-06-19 16:26:30 Doctor Unassigned, [place] [facility] POCT TEST 2021-07-25 19:22:00 [facility] DISCLOSURE AND CONSENT, MEDICAL AND SURGICAL PROCEDURES 2021-07-25 05:01:00 Doctor Unassigned, [place] [facility] Plan of Care Planned Activity Planned Date Details Comments Source Diagnostic Test Pending 2020-04-25 00:00:00 rapid SARS CoV 2 Ag, QL IA, respiratory specimen [code = rapid SARS CoV 2 Ag, QL IA, respiratory specimen] [facility] Instructions [facility] Encounters Start Date/Time End Date/Time Encounter Type Admission Type Attending Clinicians Care Facility Care Department Encounter ID Source 2023-10-14 10:53:00 Outpatient Quintero, Quinn STLMLC STLMLC [id number] [facility] 2023-09-18 08:56:00 Outpatient Quintero, Quinn STLMLC ST[facility]MLC [id number] [facility] 2023-09-16 13:33:00 Outpatient Quintero, Quinn STLMLC STLMLC [id number] [facility] 2021-07-20 16:13:01 Outpatient Quintero, Quinn STLMLC STLMLC [id number] [facility] 2021-07-13 08:27:01 Outpatient Quintero, Quinn STLMLC STLMLC [id number] [facility] 2021-05-11 10:57:01 Outpatient Quintero, Quinn STLMLC STLMLC [id number] [facility] 2021-03-29 14:36:17 Outpatient Quintero, Quinn STLMLC STLMLC [id number] [facility] 2021-03-29 14:07:40 Outpatient Quintero, Quinn STLMLC STLMLC [id number] [facility] 2021-03-29 14:01:49 Outpatient Quintero, Quinn STLMLC STLMLC [id number] [facility] 2021-03-29 13:55:48 Outpatient Quintero, Quinn STLMLC STLMLC [id number] [facility] 2021-03-29 13:55:20 Outpatient Quintero, Quinn STLMLC STLMLC [id number] [facility] 2021-03-29 13:40:15 Outpatient Quintero, Quinn STLMLC STLMLC [id number] [facility] 2021-03-29 13:39:55 Outpatient Quintero, Quinn STLMLC STLMLC [id number] [facility] 2021-03-29 13:13:36 Outpatient Quintero, Quinn STLMLC STLMLC [id number] [facility] 2021-03-29 13:12:43 Outpatient Quintero, Quinn STLMLC STLMLC [id number] [facility] 2021-03-29 13:05:56 Outpatient Quintero, Quinn STLMLC STLMLC [id number] [facility] 2021-03-29 12:47:28 Outpatient Quintero, Quinn STLMLC STLMLC [id number] [facility] 2021-03-29 12:39:36 Outpatient Quintero, Quinn STLMLC STLMLC [id number] [facility] 2021-03-29 12:39:04 Outpatient Quintero, Quinn STLMLC STLMLC [id number] [facility] 2021-03-29 12:20:18 Outpatient Quintero, Quinn STLMLC STLMLC [id number] [facility] 2021-03-29 12:15:07 Outpatient Quintero, Quinn STLMLC STLMLC [id number] [facility] 2021-03-29 12:13:43 Outpatient Quintero, Quinn STLMLC STLMLC [id number] [facility] 2021-03-29 12:09:42 Outpatient Quintero, Quinn STLMLC STLMLC [id number] [facility] 2021-03-29 11:59:40 Outpatient Quintero, Quinn STLMLC STLMLC [id number] [facility] 2024-04-02 00:00:00 2024-04-02 09:47:36 Ginette Do, Counts include 234 beds at the [facility] 1.2.840.114 350.1.13.10 4.2.7.2.686 [id number] [facility] 2024-03-27 15:00:00 2024-03-27 15:20:00 Urgent Care Stephanie Do, Attending [facility] 1..840.114 350.1.13.10 4.2.7.2.686 [id number] [facility] 2024-03-27 15:00:00 2024-03-27 15:00:00 Outpatient R STEPHANIE DO [facility] [id number] [facility] 2024-02-14 11:00:00 2024-02-14 12:01:36 Outpatient R STEPHANIE DO [facility] [id number] [facility] 2024-02-14 11:00:00 2024-02-14 12:01:36 Urgent Care Stephanie Do, Attending [facility] 1..840.114 350.1.13.10 4.2.7.2.686 [id number] [facility] 2023-09-23 00:00:00 2023-09-23 00:00:00 (WEB) STLC STLC [id number] [facility] 2023-09-18 00:00:00 2023-09-18 00:00:00 PREV VISIT EST AGE 18-[id number] [facility] 2023-06-28 09:21:59 2023-06-28 23:59:00 Outpatient R JENARO NAVARRO [facility] [id number] [facility] 2023-06-28 09:21:59 2023-06-28 23:59:00 Hospital Encounter Jenaro Navarro [facility] 1..840.114 350.1.13.10 4.2.7.2.686 [id number] [facility] 2023-06-28 09:00:00 2023-06-28 09:32:05 Urgent Care Jenaro Navarro Unknown, Attending [facility] 1.840.114 350.1.13.10 4.2.7.2.686 [id number] [facility] 2023-06-28 00:00:00 2023-06-28 00:00:00 Letter (Out) [facility] 1.840.114 350.1.13.10 4.2.7.2.686 [id number] [facility] 2023-06-28 00:00:00 2023-06-28 00:00:00 (TEL) [facility] [id number] [facility] 2023-04-12 11:30:00 2023-04-12 11:30:00 Outpatient NORMA NAVA ELISHA [facility] [id number] [facility] 2023-02-01 09:00:00 2023-02-01 09:00:00 Outpatient MAXWELL FARMER [facility] [id number] [facility] 2023-01-11 14:30:00 2023-01-11 14:30:00 Outpatient NORMA NAVA ELISHA [facility] [id number] [facility] 2022-10-16 07:15:00 2022-10-16 07:15:00 Outpatient R CALIN CHACON [facility] [id number] [facility] 2022-10-15 00:00:00 2022-10-15 00:00:00 Patient Secure Msg Doctor Unassigned, [place] [facility] 1.840.114 350.1.13.10 4.2.7.2.686 [id number] [facility] 2022-10-10 11:00:00 2022-10-10 12:31:15 Outpatient R NORMA GALLEGOS ELISHA [facility] [id number] [facility] 2022-10-10 11:00:00 2022-10-10 12:31:15 Office Visit Norma Gallegos [facility] 1..840.114 350.1.13.10 4.2.7.2.686 [id number] [facility] 2022-10-10 00:00:00 2022-10-10 00:00:00 Orders Only Doctor Unassigned, [place] [facility] 1..840.114 350.1.13.10 4.2.7.2.686 [id number] [facility] 2022-07-09 09:30:00 2022-07-09 09:30:00 Outpatient R MIKE BLOCK CHERYAL [facility] [id number] [facility] 2022-07-04 09:30:00 2022-07-04 09:30:00 Outpatient R NORMA GALLEGOS ELISHA [facility] [id number] [facility] 2022-06-27 11:00:00 2022-06-27 11:00:00 Outpatient R MIKE BLOCK CHERYAL [facility] [id number] [facility] 2022-06-26 11:00:00 2022-06-26 11:00:00 Outpatient R MIKE BLOCK CHERYAL [facility] [id number] [facility] 2022-06-19 11:30:00 2022-06-19 13:31:36 Outpatient R MIKE BLOCK CHERYAL [facility] [id number] [facility] 2022-06-19 11:30:00 2022-06-19 12:00:[address] Mike Block [facility] 1.2840.114 350.1.13.10 4.2.7.2.686 [id number] [facility] 2022-06-19 00:00:00 2022-06-19 00:00:00 Orders Only Doctor Unassigned, [place] [facility] 1.2.840.114 350.1.13.10 4.2.7.2.686 [id number] [facility] 2022-02-26 10:45:00 2022-02-26 10:45:00 Outpatient R UNKNOWN, ATTENDING [facility] [id number] [facility] 2021-12-22 00:00:00 2021-12-22 00:00:00 Patient Secure Msg Doctor Unassigned, [place] [facility] 1.2840.114 350.1.13.10 4.2.7.2.686 [id number] [facility] 2021-12-14 16:00:00 2021-12-14 17:08:10 Outpatient R MIKE BLOCK CHERYAL [facility] [id number] [facility] 2021-12-14 16:00:00 2021-12-14 17:08:10 Office [address] Mike Block [facility] 1.2840.114 350.1.13.10 4.2.7.2.686 [id number] [facility] 2021-12-14 16:30:00 2021-12-14 16:30:00 Outpatient R MIKE BLOCK CHERYAL [facility] [id number] [facility] 2021-11-30 08:30:00 2021-11-30 08:30:00 Outpatient R ANNA CALZADA [facility] [id number] [facility] 2021-09-07 00:00:2021-09-07 00:00:00 OFFICE VISIT ESTAB PT LEVEL [id number] [facility] 2021-08-30 00:00:00 2021-08-30 00:00:00 (TEL) STLMLC STLMLC [id number] [facility] 2021-08-05 00:00:00 2021-08-05 00:00:00 Patient Secure Msg Doctor Unassigned, [place] [facility] 1.840.114 350.1.13.10 4.2.7.2.686 [id number] [facility] 2021-07-25 13:30:00 2021-07-25 14:37:07 Outpatient ANNA MORRIS [facility] [id number] [facility] 2021-07-25 13:30:00 2021-07-25 14:37:07 Office Visit Anna Calzada [facility] 1.840.114 350.1.13.10 4.2.7.2.686 [id number] [facility] 2021-07-25 00:00:00 2021-07-25 00:00:00 Orders Only Doctor Unassigned, [place] [facility] 1..840.114 350.1.13.10 4.2.7.2.686 [id number] [facility] 2021-07-17 10:15:00 2021-07-17 10:15:00 Outpatient R ANNA CALZADA [facility] [id number] [facility] 2021-07-13 00:00:00 2021-07-13 00:00:00 OFFICE VISIT ESTAB PT LEVEL [id number] [facility] 2021-06-30 10:00:00 2021-06-30 10:15:00 Water Reuse Program Manager Visit Lab, Sanjay - Anna Senior [facility] 1..840.114 350.1.13.10 4.2.7.2.686 [id number] [facility] 2021-06-30 10:00:00 2021-06-30 10:00:00 Outpatient R ANNA CALZADA [facility] [id number] [facility] 2021-06-30 08:45:00 2021-06-30 08:45:00 Outpatient R [facility] [id number] [facility] 2021-06-24 00:00:00 2021-06-24 00:00:00 Refill [facility] 1..840.114 350.1.13.10 4.2.7.2.686 [id number] [facility] 2021-06-23 13:00:00 2021-06-23 13:56:11 Office Visit [facility] 1..840.114 350.1.13.10 4.2.7.2.686 [id number] [facility] 2021-06-23 13:00:00 2021-06-23 13:56:11 Outpatient R ANNA CALZADA [facility] [id number] [facility] 2021-06-23 13:00:00 2021-06-23 13:00:00 Outpatient R ANNA CALZADA [facility] [id number] [facility] 2021-06-23 00:00:00 2021-06-23 00:00:00 Orders Only Doctor Unassigned, [place] [facility] 1..840.114 350.1.13.10 4.2.7.2.686 [id number] [facility] 2021-05-24 00:00:00 2021-05-24 00:00:00 (TEL) STLMLC STLMLC [id number] [facility] 2021-05-09 13:00:00 2021-05-09 13:00:00 Outpatient Yu STEPHANIE DO [facility] [id number] [facility] 2021-05-09 00:00:00 2021-05-09 00:00:00 (TEL) STLMLC STLMLC [id number] [facility] 2021-03-28 00:00:00 2021-03-28 00:00:00 OFFICE VISIT EST PT LEVEL [id number] [facility] 2021-01-03 00:00:00 2021-01-03 00:00:00 OFFICE VISIT ESTAB PT LEVEL [id number] [facility] 2020-12-19 00:00:00 2020-12-19 00:00:00 OFFICE VISIT EST PT LEVEL [id number] [facility] 2020-12-19 00:00:00 2020-12-19 00:00:00 (TEL) STLMLC STLMLC [id number] [facility] 2020-12-05 00:00:00 2020-12-05 00:00:00 PREV VISIT EST AGE 18-[id number] [facility] 2020-11-02 00:00:00 2020-11-02 00:00:00 OFFICE VISIT EST PT LEVEL [id number] [facility] 2020-10-31 00:00:00 2020-10-31 00:00:00 (TEL) STLMLC STLMLC [id number] [facility] 2020-10-31 00:00:00 2020-10-31 00:00:00 OFFICE VISIT ESTAB PT LEVEL [id number] [facility] 2020-10-18 00:00:00 2020-10-18 00:00:00 (TEL) STLMLC STLMLC [id number] [facility] 2020-08-15 00:00:00 2020-08-15 00:00:00 Outpatient STLMLC STLMLC [id number] [facility] 2020-07-06 00:00:00 2020-07-06 00:00:00 Outpatient [facility]LMLC STLMLC [id number] [facility] 2020-06-06 00:00:00 2020-06-06 00:00:00 Outpatient [facility]LMLC STLMLC [id number] [facility] 2020-06-06 00:00:00 2020-06-06 00:00:00 Outpatient [facility]MLC STLMLC [id number] [facility] 2020-05-24 00:00:00 2020-05-24 00:00:00 Patient Outreach Colten Escobar [facility] 03.05.840.114 350.1.13.10 4.2.7.2.686 [id number] [facility] 2020-04-25 00:00:00 2020-04-25 00:00:00 Kimber knight, [facility]-: [address] [place] [address], [address], [place] [address] , Ph. [facility] [id number] [facility] 2020-04-25 00:00:00 2020-04-25 00:00:00 Outpatient Kimber Powell [facility] [id number] 2020-03-26 17:03:18 2020-03-26 17:23:18 Laboratory Only Lab, Adc Fam Pob Nirali Landrum [facility] [address] 03.05.840.114 350.1.13.10 4.2.7.2.686 [id number] [facility] 2020-03-26 17:00:00 2020-03-26 17:00:00 Outpatient Yu [facility] [id number] [facility] 2020-03-22 00:00:00 2020-03-22 00:00:00 Out[address]C [facility]LMLC [id number] [facility] 2020-03-16 00:00:00 2020-03-16 00:00:00 Outpatient [facility]LMLC STLMLC [id number] [facility] 2020-03-02 00:00:00 2020-03-02 00:00:00 Outpatient [facility]LMLC STLMLC [id number] [facility] 2020-02-23 00:00:00 2020-02-23 00:00:00 Outpatient [facility]LMLC STLMLC [id number] [facility] 2020-02-22 00:00:00 2020-02-22 00:00:00 Outpatient [facility]MLC STLMLC [id number] [facility] 2020-02-16 00:00:00 2020-02-16 00:00:00 Outpatient [facility]LMLC STLMLC [id number] [facility] 2020-02-06 17:38:46 2020-02-06 17:53:46 Laboratory Only Lab, [facility] .840.114 350.1.13.10 4.2.7.2.686 [id number] [facility] 2020-02-06 17:30:00 2020-02-06 17:30:00 Outpatient ARIA RIVERO [facility] [id number] [facility] 2020-02-03 00:00:00 2020-02-03 00:00:00 Out[address]C STLMLC [id number] [facility] 2020-01-25 18:37:49 2020-01-25 18:46:35 Laboratory Only Lab, [facility]c [facility] 840.114 350.1.13.10 4.2.7.2.686 [id number] [facility] 2020-01-25 18:40:00 2020-01-25 18:40:00 Outpatient R JANNET LANDRUM [facility] [id number] [facility] 2020-01-04 00:00:00 2020-01-04 00:00:00 Outpatient STLMLC STLMLC [id number] [facility] 2019-07-24 10:30:00 2019-07-24 10:30:00 Outpatient R AILIN SPENCER [facility] [id number] [facility] 2019-06-26 09:38:05 2019-06-26 10:31:40 Office Visit Ailin Spencer [facility] 1..840.114 350.1.13.10 4.2.7.2.686 [id number] [facility] 2019-06-26 09:30:00 2019-06-26 09:30:00 Outpatient R AILIN SPENCER [facility] [id number] [facility] 2019-06-26 00:00:00 2019-06-26 00:00:00 Orders Only Doctor Unassigned, [place] [facility] 1..840.114 350.1.13.10 4.2.7.2.686 [id number] [facility] 2019-06-18 00:00:00 2019-06-18 00:00:00 Telephone Ailin Spencer [facility] 1..840.114 350.1.13.10 4.2.7.2.686 [id number] [facility] 2018-09-12 11:15:00 2018-09-12 11:15:00 Outpatient [facility] [id number] [facility] 2018-08-14 11:15:00 2018-08-14 11:15:00 Outpatient [facility] [id number] [facility] 2018-05-19 10:30:00 2018-05-19 10:30:00 Outpatient [facility] [id number] [facility] 2018-03-18 08:00:00 2018-03-18 08:00:00 Outpatient [facility] [id number] [facility] 2018-02-21 11:35:00 2018-02-21 11:35:00 Outpatient [facility] [id number] [facility] 2018-02-13 13:13:00 2018-02-13 13:13:00 Outpatient [facility] [id number] [facility] 2018-02-13 10:15:00 2018-02-13 10:15:00 Outpatient [facility] [id number] [facility] Results Test Description Test Time Test Comments Results Result Co mments Source [facility] MOLECULAR [id number] 17:38:27* Test Item Value Reference Range Interpretation Comme nts POCT Molecular Strep (test c ode = 50394-5) Negative Negative Lab Interpretation (test cod e = 43681-0) Normal [facility] [id number] 22:39:17EXAM: XR KUB COMPARISON: None HISTORY: 33 years old Female with constipation x 3 days FINDINGS: Unremarkable bowel gas pattern. Small to moderate stool is noted in thedescending colon. No radiopaque calculi. A couple of round calcifications in the pelvis favorto represent phleboliths. No acute osseous abnormality is identified.[facility] URINALYSIS, INSTRUMENT 2022-10-10 15:50:00* Test Item Value Reference Range Interpretation Comme [...] = ?17 ml. Results reported to provider. [facility] URINALYSIS, [id number] 15:50:00 * Test Item Value Reference Range [...] = ?17 ml. Results [facility] to provider. [facility] [id number] 15:50:00 * Test Item Value Reference Range [...] = ?17 ml. Results reported to provider. [facility] URINALYSIS, [id number] 15:50:00 * Test Item Value Reference Range [...] = ?17 ml. Results reported to provider. [facility] [id number] 19:22:00* Test Item Value Reference Range Interpretation Comme nts POCT PREG (test code = 1605) Negative On board controls acceptable with C Line (test code = 3574) Yes POCT PREG LOT # (test code = 3575) POCT PREG TEST DATE ( test code = 3576) [facility] [id number] 19:22:00* Test Item Value Reference Range Interpretation Comme nts POCT PREG (test code = 1605) Negative On board controls acceptable with C Line (test code = 3574) Yes POCT PREG LOT # (test code = 3575) POCT PREG TEST DATE ( test code = 3576) [facility] Ag [Presence] in Respiratory specimen by Rapid [id number] 13:34:00* Test Item Value Reference Range Interpretation Comme nts SARS CoV 2 (test code = SARS CoV 2) [facility] Antigen Notes Date/Time Note Provider Source 2022-10-10 11:00:00 Addended by: NORMA GALLEGOS MD on: 10/15/2022 12:37 PM Modules accepted: Orders [facility]
[2024-12-21 12:11] LABS: Urine Microscopic Reflex YN NO UMIC
[2024-12-21 12:14] LABS: RBC Red Blood Cell Count 4.93 M/uL (3.86-4.86); White Blood Count 13.60 thou/uL (4.3-10.9)
[2024-12-21 12:15] LABS: Absolute Lymphocytes (CBC) 0.6 K/uL (0.7-4.9); Hematocrit 45.0 % (36.0-45.0); Hemoglobin 15.0 g/dL (12.0-15.0); MCH 30.3 pg (27.0-35.0); MCHC 33.3 g/dL (32.0-36.0); MCV 91.2 fL (80-100); MPV 9.5 fL (7.6-11.3); Nucleated RBC Absolute Count 0.0 (0-0); Nucleated Red Blood Cells % 0.1 % (0-0)
[2024-12-21 12:30] LABS: ALT/SGPT 21.0 U/L (13-56); AST/SGOT 11.0 U/L (15-37); Albumin 4.1 g/dL (3.4-5.0); Albumin/Globulin Ratio 1.3 (1.1-1.8); Alkaline Phosphatase 41.0 U/L (45-117); Anion Gap 7.7 mEq/L (5.0-15.0); BUN Blood Urea Nitrogen 10.0 mg/dL (7-18); Globulin 3.1 g/dL (2.3-3.5); Glucose Level 97.0 mg/dL (74-106); Lipase 33.0 U/L (13-75); Potassium 3.7 mEq/L (3.5-5.1)
--- NOTE | 2024-12-21 13:06 | RAD REPORT ---
EXAMINATION: Abdomen Pelvis W Contrast CLINICAL INDICATION: Female, 34 years old.ABD PAIN TECHNIQUE: CT abdomen and pelvis was performed, after the administration of IV contrast, as [facility]. Axial, sagittal and coronal reconstructions were obtained. One or more of the following dose reduction techniques were used: Automated exposure control, adjustment of the mA and/o r kV according to patient size, and/or iterative reconstruction. Unless otherwise specified, incidental findings do not require dedicated imaging follow-up. [id number]. COMPARISON: 06/19/23 FINDINGS: LOWER CHEST: No acute process identified. No significant pericardial effusion. Mild circumferential t hickening of the distal esophagus which could reflect esophagitis. UPPER GI: No significant abnormality. 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 GALLBLADDER/BILE DUCTS: No biliary ductal dilatation.? PANCREAS: No mass, ductal dilation, or zion-pancreatic fluid. SPLEEN: Unremarkable. ADRENALS: No adrenal masses. KIDNEYS AND URETERS: No hydronephrosis. No suspicious renal mass. No renal calculi. No ureteral calcu li. ABDOMINAL AORTA AND OTHER VESSELS: Normal caliber aorta and IVC. PERITONEUM: No abnormal free fluid. No free air. LYMPH NODES: No pathologic lymphadenopathy. ABDOMINAL WALL: Similar thickening at the umbilicus SMALL BOWEL/COLON: Small bowel has normal course and caliber. No colonic wall thickening or pericolon ic inflammatory changes. Normal appendix. URINARY BLADDER: Underdistended but grossly unremarkable. REPRODUCTIVE ORGANS: IUD MUSCULOSKELETAL: No acute or suspicious osseous abnormality. ADDITIONAL FINDINGS: None. IMPRESSION: No acute findings within the abdomen or pelvis. No appendicitis.
--- NOTE | 2024-12-21 13:27 | RAD REPORT ---
EXAM: Chest Single View HISTORY: 34 years Female CHEST PAIN COMPARISON: No prior exams FINDINGS: LUNGS/PLEURA: The lungs are clear. No pleural effusions or pneumothorax. No pulmonary edema. CARDIAC/MEDIASTINUM: The cardiac silhouette is within normal limits. UPPER ABDOMEN: No significant abnormality. BONES: No acute abnormality. LINES/TUBES/OTHER: Contrast present within the collecting systems. IMPRESSION: No evidence of acute cardiopulmonary disease.
[2024-12-21 13:44] LABS: White Blood Cell Scan OK (OK)
[2024-12-21 13:45] LABS: Blood Morphology Comment NOTED (NOT SEEN)
[2024-12-21 13:52] LABS: Stomatocytes 1+
[2024-12-21] MEDS ORDERED: ONDANSETRON 4 MG/2 ML VIAL ONE (14:11)
[2024-12-21] MEDS ORDERED: NA CHLORIDE 0.9% 1,000 ML ONE (14:11)
[2024-12-21] MEDS ORDERED: KETOROLAC 30 MG/ML INJ ONE (14:32)
--- NOTE | 2024-12-21 14:33 | ER ---
Nurse's Notes [facility] Name: Marilyn Dotson Age: 34 yrs Sex: Female : 1990 Arrival Date: 12/21/2024 Time: 10:55 Bed 14 Private MD: Diagnosis: Other specified noninfective gastroenteritis and colitis Presentation: 12/21 11:46 Chief complaint: Patient states: UPPER STOMACH PAIN, HEADACHE, DIARRHEA AND NAUSEA THAT dd2 BEGAN LAST NIGHT. PT DENIES VOMITING. Coronavirus screen: At this time, the client does not indicate any symptoms associated with coronavirus-19. Ebola Screen: No symptoms or risks identified at this time. Initial Sepsis Screen: Does the patient meet any 2 criteria? No. Patient's initial sepsis screen is negative. Does the patient have a suspected source of infection? No. Patient's initial sepsis screen is negative. Risk Assessment: Do you want to hurt yourself or someone else? Patient reports no desire to harm self or others. Onset of symptoms was December 20, 2024. 11:46 Method Of Arrival: Ambulatory dd2 11:46 Acuity: RAMONA 3 dd2 Triage Assessment: 11:48 General: Appears in no apparent distress. uncomfortable, Behavior is calm, cooperative, dd2 appropriate for age. Pain: Complains of pain in epigastric area, HEAD Pain currently is 8 out of 10 on a pain scale. Neuro: Reports headache. GI: Reports diarrhea, epigastric pain, nausea. 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 - Infectious Disease History:: Denies. - Social history:: Smoking status: Patient denies any tobacco usage or history of. Screenin:47 [facility] ED Fall Risk Assessment (Adult) History of falling in the last 3 months, ar8 including since admission No falls in past 3 months (0 pts) Confusion or Disorientation No (0 pts) Intoxicated or Sedated No (0 pts) Impaired Gait No (0 pts) Mobility Assist Device Used No (0 pt) Altered Elimination No (0 pt) Score/Fall Risk Level 0 - 2 = Low Risk Oriented to surroundings, Maintained a safe environment. Abuse screen: Denies threats or abuse. Nutritional screening: No deficits noted. Tuberculosis screening: No symptoms or risk factors identified. Assessment: 14:44 General: Appears in no apparent distress. Behavior is calm, cooperative. Pain: ar8 Complains of pain in abdomen. Neuro: Level of Consciousness is awake, alert, obeys commands, Oriented to person, place, time, situation. Cardiovascular: Patient's skin is warm and dry. Respiratory: Airway is patent Respiratory effort is even, unlabored, Respiratory pattern is regular, symmetrical. GI: Abd is soft Abdomen is tender to palpation in abdomen diffusely. : No signs and/or symptoms were reported regarding the genitourinary system. EENT: No signs and/or symptoms were reported regarding the EENT system. Derm: No signs and/or symptoms reported regarding the dermatologic system. Vital Signs: 11:46 BP 120 / 76; Pulse 87; Resp 16; Temp 98.3; Pulse Ox 99% ; Weight 63.5 kg; Pain 8/10; dd2 14:15 BP 109 / 57; Pulse 96; Resp 16; Pulse Ox 100% on R/A; Pain 7/10; ar8 15:15 BP 117 / 76; Pulse 88; Resp 18; Pulse Ox 100% on R/A; ar8 11:46 Pain Scale: Adult dd2 14:15 Pain Scale: Adult ar8 ED Course: 10:57 Patient arrived in ED. al6 11:08 Juan Snider FNP-C is [facility]. dr5 11:08 Yudi Quintero MD is Attending Physician. dr5 11:48 Triage completed. dd2 11:48 Arm band placed on right wrist. dd2 12:13 Initial lab(s) drawn, by pr, sent to lab. Inserted saline lock: 20 gauge in left pm7 antecubital area, using aseptic technique. Blood collected. Flushed with 10 mL NS. 12:52 CT Abd/Pelvis - IV Contrast Only In Process Unspecified. EDMS 13:21 Chest Single View XRAY In Process Unspecified. EDMS 14:07 Anjel Lucia, RN is Primary Nurse. ar8 14:26 EKG done, by ED staff, reviewed by Juan STEARNS. ts3 14:47 Bed in low position. Call light in reach. Side rails up X2. Provided Education on: ar8 medications. 14:47 No provider procedures requiring assistance completed. ar8 15:21 IV discontinued, intact, bleeding controlled, No redness/swelling at site. Pressure ar8 dressing applied. Administered Medications: 14:40 Drug: Ondansetron IVP 4 mg IVP once; over 2 minutes Route: IVP; Site: left antecubital; ar8 15:20 Follow up: Response: No adverse reaction; Nausea is decreased ar8 14:40 Drug: NS 0.9% IV 1000 ml IV at 1 bolus Per protocol; to be given as a bolus over 60 ar8 minutes Route: IV; Rate: 1 bolus; Site: left antecubital; 15:20 Follow up: Response: No adverse reaction; IV Status: Completed infusion; IV Intake: ar8 1000ml 14:44 Drug: Ketorolac IVP 15 mg IVP once Route: IVP; Site: left antecubital; ar8 15:15 Follow up: Response: No adverse reaction; Pain is decreased ar8 Medication: 14:15 VIS not applicable for this client. ar8 Intake: 15:20 IV: 1000ml; Total: 1000ml. ar8 Outcome: 14:33 Discharge ordered by MD. dr5 15:21 Discharged to home ambulatory, ar8 15:21 Condition: stable 15:21 Discharge instructions given to patient, Instructed on discharge instructions, follow up and referral plans. medication usage, Demonstrated understanding of instructions, follow-up care, medications, Prescriptions given X 1, 15:24 Patient left the ED. ar8 Signatures: Dispatcher [employer] EDDIANA AGUILAR, RN RN dd2 Juan Snider, OPERATIONS SUPERINTENDENT-C OPERATIONS SUPERINTENDENT-[facility]5 Tyesha Edwards Taisha ts3 Anjel Lucia RN RN ar8 Cynthia Melendrez pm7
--- NOTE | 2024-12-21 14:33 | EDPHYS ---
Physician Documentation [facility] Name: Marilyn Dotson Age: 34 yrs Sex: Female : 1990 Arrival Date: 12/21/2024 Time: 10:55 Bed 14 Private MD: ED Physician uYdi Quintero HPI: 12/21 14:33 This 34 yrs old Female presents to ER via Ambulatory with complaints of dr5 Abdominal Pain, Nausea, Headache, Chest Pain. 14:33 The patient presents with abdominal pain in the upper abdomen. Onset: The dr5 symptoms/episode began/occurred yesterday. Patient is a 34-year-old female with history of anxiety and ADHD coming in with upper abdominal pain that started yesterday with diarrhea. Patient reports that she is having intermittent abdominal pain and nausea. Patient denies chest pain, shortness of breath, vomiting, or fever.. 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 - Infectious Disease History:: Denies. - Social history:: Smoking status: Patient denies any tobacco usage or history of. ROS: 14:33 Constitutional: as per hpi dr5 Exam: 14:33 Constitutional: This is a well developed, well nourished patient who is awake, alert, dr5 and in no acute distress. Head/Face: Normocephalic, atraumatic. Eyes: Pupils equal round and reactive to light, extra-ocular motions intact. Lids and lashes normal. Conjunctiva and sclera are non-icteric and not injected. Cornea within normal limits. Periorbital areas with no swelling, redness, or edema. Neck: Trachea midline, no thyromegaly or masses palpated, and no cervical lymphadenopathy. Supple, full range of motion without nuchal rigidity, or vertebral point tenderness. No Meningismus. Chest/axilla: Normal chest wall appearance and motion. Nontender with no deformity. No lesions are appreciated. Cardiovascular: Regular rate and rhythm with a normal S1 and S2. Normal PMI, no JVD. No pulse deficits. Respiratory: Lungs have equal breath sounds bilaterally, clear to auscultation. No rales, rhonchi or wheezes noted. No increased work of breathing, no retractions or nasal flaring. 14:33 Abdomen/GI: Inspection: abdomen appears normal, Bowel sounds: normal, active, Palpation: mild abdominal tenderness, in the epigastric area, Vital Signs: 11:46 BP 120 / 76; Pulse 87; Resp 16; Temp 98.3; Pulse Ox 99% ; Weight 63.5 kg; Pain 8/10; dd2 14:15 BP 109 / 57; Pulse 96; Resp 16; Pulse Ox 100% on R/A; Pain 7/10; ar8 15:15 BP 117 / 76; Pulse 88; Resp 18; Pulse Ox 100% on R/A; ar8 11:46 Pain Scale: Adult dd2 14:15 Pain Scale: Adult ar8 MDM: 11:08 Medical Screening Exam initiated dr5 14:33 Differential diagnosis: appendicitis, cholecystitis, Cholelithiasis, diverticulitis, dr5 gastritis, urinary tract infection, GERD, diverticulitis, gastroenteritis. Data reviewed: vital signs, nurses notes, lab test result(s), amylase and lipase, CBC, white blood cell count, hemoglobin, hematocrit, platelets, electrolytes, sodium, potassium, chloride, serum bicarbonate, BUN, creatinine, serum glucose, EKG, radiologic studies, CT scan, plain films. Consideration of Admission/Observation Escalation of care including admission/observation considered. Escalation considered patient not have appendicitis or fever. I considered the following discharge prescriptions or medication management in the emergency department I discussed and recommended Over The Counter medications, Medications were administered in the Emergency Department. See MAR. Independent interpretation of the following test(s) in the Emergency Department X-Ray: My interpretation is Independent interpretation of chest x-ray does not reveal infiltrates concerning for pneumonia. Historians other than the Patient: Spouse/Significant Other: Spouse. Care significantly affected by the following Social Determinants of Health: Poor access to healthcare and/or lack of insurance, Poor access to transportation, Problems related to employment. Counseling: I had a detailed discussion with the patient and/or guardian regarding the historical points, exam findings, and any diagnostic results supporting the discharge/admit diagnosis, the presence of at least one elevated blood pressure reading (>120/80) during this emergency department visit, lab results, radiology results, the need for outpatient follow up, for definitive care, a family practitioner, to return to the emergency department if symptoms worsen or persist or if there are any questions or concerns that arise at home. Medication response: Response to treatment: the patient's symptoms have markedly improved after treatment. Special discussion: I discussed with the patient/guardian in detail that at this point there is no indication for admission to the hospital. It is understood, however, that if the symptoms persist or worsen the patient needs to return immediately for re-evaluation. Based on the history and exam findings, there is no indication for further emergent testing or inpatient evaluation. I discussed with the patient/guardian the need to see the primary care provider for further evaluation of the symptoms. ED course: Patient reports using better after pain medication. Will have patient follow primary care doctor. Zofran prescribed for nausea. Recommend increase hydration. All labs and CT and chest x-ray results printed and given to patient take with her to primary care doctor. All questions answered. Strict ER precautions given.. 12/21 11:46 Order name: CBC with Diff; Complete Time: 14:03 [facility] 12/21 11:46 Order name: CMP; Complete Time: 12:33 dr5 12/21 11:46 Order name: Lipase; Complete Time: 12:33 dr5 12/21 11:47 Order name: UA Rfx Loyd Cult if indicated; Complete Time: 12:14 dr5 12/21 11:47 Order name: Test, Urine; Complete Time: 12:18 dr5 12/21 12:22 Order name: CBC Smear Scan; Complete Time: 14:03 EDW[facility] 12/21 12:33 Order name: Troponin High Sensitivity; Complete Time: 14:25 dr5 12/21 11:46 Order name: CT Abd/Pelvis - IV Contrast Only; Complete Time: 13:36 dr5 12/21 12:33 Order name: Chest Single View XRAY; Complete Time: 13:36 dr5 12/21 11:47 Order name: IV Saline Lock; Complete Time: 12:17 dr5 12/21 11:47 Order name: Labs collected and sent; Complete Time: 12:17 dr5 12/21 12:33 Order name: EKG - Nurse/Tech; Complete Time: 14:26 dr5 EC:11 Rate is 96 beats/min. Rhythm is regular. QRS [place] is Normal. NV interval is normal at dr5 126 msec. QRS interval is normal at 76 msec. QT interval is normal at 362 msec. Clinical impression: Normal ECG, No change from prior ECG, and No evidence of ischemia. Administered Medications: 14:40 Drug: Ondansetron IVP 4 mg IVP once; over 2 minutes Route: IVP; Site: left antecubital; ar8 15:20 Follow up: Response: No adverse reaction; Nausea is decreased ar8 14:40 Drug: NS 0.9% IV 1000 ml IV at 1 bolus Per protocol; to be given as a bolus over 60 ar8 minutes Route: IV; Rate: 1 bolus; Site: left antecubital; 15:20 Follow up: Response: No adverse reaction; IV Status: Completed infusion; IV Intake: ar8 1000ml 14:44 Drug: Ketorolac IVP 15 mg IVP once Route: IVP; Site: left antecubital; ar8 15:15 Follow up: Response: No adverse reaction; Pain is decreased ar8 Disposition Summary: 12/21/24 14:33 Discharge Ordered Notes: Location: Home dr5 Condition: Stable dr5 Diagnosis - Other specified noninfective gastroenteritis and colitis dr5 Followup: dr5 - With: Emergency Department - When: As needed - Reason: Worsening of condition Followup: dr5 - With: Private Physician - When: 1 - 2 days - Reason: Recheck today's complaints, Continuance of care, Re-evaluation by your physician Discharge Instructions: - Discharge Summary Sheet dr5 - Colitis dr5 Forms: - Work release form dr5 - Medication Reconciliation Form dr5 - Antibiotic Education dr5 - Patient Portal Instructions dr5 - Leadership Thank You Letter dr5 Prescriptions: - Zofran 4 mg Oral Tablet - take 1 tablet ORAL route every 12 hours As needed; 20 tablet; Refills: 0, dr5 Product Selection Permitted Signatures: Dispatcher [employer] EDDIANA AGUILAR, RN RN dd2 Juan Snider, PARALEGAL ASSISTANT-C PARALEGAL ASSISTANT-Cdr5 Anjel Lucia RN RN ar8 Corrections: (The following items were deleted from the chart) 11:47 11:47 CBC+H.LAB.BRZ ordered. EDMS EDMS 11:47 11:47 COMPREHENSIVE METABOLIC PANEL+C.LAB.BRZ ordered. EDMS EDMS 11:47 11:47 LIPASE+C.LAB.BRZ ordered. EDMS EDMS 11:47 11:47 UA Rfx Loyd Cult if indicated+U.LAB.BRZ ordered. EDMS EDMS 11:47 11:47 Test, Urine+UC.LAB.BRZ ordered. EDMS EDMS 12:34 12:34 Troponin High Sensitivity+C.LAB.BRZ ordered. EDMS EDMS
[2024-12-21 19:28] VITALS: TEMP 98.3
[2024-12-21 19:38] VITALS: BP 156/75; O2SAT 99
== END 2024-12-21 15:24 | disposition home or self-care (01) ==
LOC: ER 10:55
DX: K52.9 Noninfective gastroenteritis and colitis, unspecified (principal); R11.0 Nausea; R51.9 Headache, unspecified; R07.89 Other chest pain; F90.8 Attention-deficit hyperactivity disorder, other type
CPT/HCPCS: 36415; 71045; 74177; 80053; 81003; 81025; 83690; 84484; 85025; 93005; 96361; 96374; 96375; 99284; J1885; J2405; J7030; Q9967